=== PATIENT | female | born 2000 | race Caucasian/White ===

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

== ENCOUNTER 2019-03-14 22:58 | Inpatient (IN) | payer OTHER ==
--- OUTSIDE RECORDS SUMMARY | 2019-03-14 23:00 | XMS REPORT ---
:2000 [facility] Address [address] [place] [address] Care Team Providers Name Role Phone Unavailable Unavailable Unavailable Problems This patient has no known problems. Allergies, Adverse Reactions, Alerts This patient has no known allergies or adverse reactions. Medications This patient has no known medications.
--- OUTSIDE RECORDS SUMMARY | 2019-03-14 23:01 | XMS REPORT | Summary of Care ---
:2000 Author Organization [facility] Address [address] [place] [address] Care Team Providers Name Role Phone Shahnaz Guzman Primary Care Provider Og Cortes MD Insurance Hmo Unavailable Reason for Visit Reason Comments Care Encounter Details Date Type Department Care Team Description 03/12/2019 Routine [facility]- Shahnaz Guzman Supervision of high risk in third trimester (Primary Dx); Visit AURA Cruz History of spontaneous , currently ; [address] [place] [address] Limited care in third trimester; [place], [place] Teen parent; [address] [place], [place] Multiparity; [phone] [address] Chlamydia; [phone] Obesity in Allergies No Known Allergiesdocumented as of this encounter (statuses as of 03/12/2019) Medications Medication Sig Dispensed Refills Start Date End Date Status vit Take 1 Packet by 30 Each 6 09/05/2018 Active 79-nhmt-oyljh-dha mouth daily. (SELECT-OB + DHA) 29 mg iron-1 mg -250 mg combo packIndications: Supervision of high risk , antepartum dfuwzcpylvdos-nxis-rnc Take 1 capsule by 30 capsule 0 01/05/2019 Active albital (ESGIC) per mouth every 4 capsuleIndications: (four) hours as headache in needed for second trimester Headache. Iron, Cbn & Take 1 tablet by 60 tablet 3 01/08/2019 Active Zhjj-OM-I86-C-DSS mouth daily. (FERRALET 90 DUAL-IRON DELIVERY) 90-1-12-50 ly-cq-osb-mg per tabletIndications: Anemia of mother in , antepartum documented as of this encounter (statuses as of 03/12/2019) Active Problems Patient Care Coordination Note IOL 02-14-18 at 7am Problem Noted Date Supervision of high risk in third trimester 02/13/2019 Blunt trauma to abdomen, initial encounter 02/13/2019 Anemia of mother in , antepartum 01/08/2019 Limited care in second trimester 11/30/2018 Candidiasis of vulva and vagina 11/30/2018 Chlamydia 09/28/2018 Multiparity 08/25/2018 Teen parent 02/09/2018 History of spontaneous , currently 06/20/2017 Family history of Down syndrome 06/20/2017 Obesity in 06/20/2017 High risk , antepartum 02/18/2017 Estimated Date of Delivery Comments Yes 03/29/2019 Based on last menstrual period of 06/22/2018 (Within Days) documented as of this encounter (statuses as of 03/12/2019) Resolved Problems Problem Noted Date Resolved Date (spontaneous vaginal delivery) 02/09/2018 08/25/2018 Single live 02/09/2018 08/25/2018 Episiotomy obstetrical, second degree 02/09/2018 08/25/2018 PIH ( induced hypertension) w/o SF 02/09/2018 08/25/2018 38 weeks gestation of 02/08/2018 02/10/2018 Right flank pain 01/29/2018 02/10/2018 36 weeks gestation of 01/28/2018 02/10/2018 Premature uterine contractions causing threatened premature 01/28/20182017 labor in third trimester Diarrhea 01/28/2018 02/10/2018 Nausea & vomiting 01/28/2018 02/10/2018 Elevated blood pressure affecting , antepartum 01/23/2018 02/10/2018 Obesity (BMI 30-39.9) 01/12/2018 01/17/2018 Supervision of high risk in third trimester 12/14/2017 08/25/2018 Abnormal maternal glucose tolerance, antepartum 11/16/2017 08/25/2018 Overview: Passed 3hr Acute URI 11/15/2017 01/17/2018 Urinary frequency 11/15/2017 01/17/2018 Headache 10/30/2017 02/10/2018 23 weeks gestation of 10/29/2017 01/17/2018 Elevated blood pressure reading without diagnosis of 10/28/2017 01/17/2018 hypertension Encounter for supervision of high risk in second 08/25/20172017 trimester, antepartum Supervision of high risk , antepartum, first trimester 06/20/2017 High risk teen in first trimester 06/20/2017 08/25/2017 Missed menses 06/20/2017 01/17/2018 Nausea and vomiting during prior to 22 weeks 02/18/2017 06/20/2017 gestation Skin lesion 02/18/2017 06/20/2017 Well woman exam 11/26/2015 02/18/2017 Contraceptive management 11/26/2015 02/18/2017 Screen for STD (sexually transmitted disease) 11/26/2015 02/18/2017 Dysmenorrhea 11/26/2015 02/18/2017 documented as of this encounter (statuses as of 03/12/2019) Immunizations Name Administration Dates Next Due Tdap 01/05/2019, 12/14/2017, 08/08/2015 documented as of this encounter Social History Tobacco Use Types Packs/Day Years Used Date Never Smoker Smokeless Tobacco: Never Used Alcohol Use Drinks/Week oz/Week Comments No 0 Standard drinks or equivalent 0.0 Estimated Date of Delivery Comments Yes 03/29/2019 Based on last menstrual period of 06/22/2018 (Within Days) Sex Assigned at Date Recorded Not on file Job Start Date Occupation Industry Not on file Not on file Not on file Travel History Travel Start Travel End No recent travel history available. documented as of this encounter Last Filed Vital Signs Vital Sign Reading Time Taken Comments Blood Pressure 131/76 03/12/2019 10:00 AM CDT Pulse 99 03/12/2019 10:00 AM CDT Temperature 36.6 C (97.8 F) 03/12/2019 10:00 AM CDT Respiratory Rate 16 03/12/2019 10:00 AM CDT Oxygen Saturation - - Inhaled Oxygen Concentration - - Weight 87.1 kg (192 lb) 03/12/2019 10:00 AM CDT Height 167.6 cm (5' 6") 03/12/2019 10:00 AM CDT Body Mass Index 30.99 03/12/2019 10:00 AM CDT documented in this encounter Progress Notes Korina Guzmanvipinemerson Sun, UNDERGROUND FOREMAN - 03/12/2019 9:45 AM CDT Chief complaint: Chief Complaint Patient presents with Care HPI Histories OB History Para Term AB Living 3 1 1 0 1 1 SAB TAB Ectopic Multiple Live Births 1 0 0 0 1 # Outcome Date GA Lbr David/2nd Weight Sex Delivery Anes PTL Lv 3 Current 2 Term 02/09/18 38w2d 7 lb 1 oz (3.204 kg) F VAGINAL EPI N PARKER 1 SAB 03/2017 10w0d ND Past Medical History: Diagnosis Date Abnormal maternal glucose tolerance, antepartum 11/16/2017 with previous Anemia of mother in , antepartum 01/08/2019 Candidiasis of vulva and vagina 11/30/2018 Dysmenorrhea 11/26/2015 PIH ( induced hypertension) w/o SF 02/09/2018 with previous STD (sexually transmitted disease) resolved Family History Problem Relation Age of Onset Hypertension Mother Breast Cancer Maternal Grandmother Other - see comments Brother down syndrom Other - see comments Father No Significant Medical Problems Sister Arthritis NoFHx Asthma NoFHx defects NoFHx Colon Cancer NoFHx Ovarian Cancer NoFHx Uterine Cancer NoFHx Depression NoFHx Cancer NoFHx Diabetes NoFHx Genetic NoFHx Heart NoFHx High cholesterol NoFHx Mental retardation NoFHx Neurological NoFHx Osteoporosis NoFHx Psychiatry NoFHx Family Status Relation Name Status Mo Alive MGMo Bro Alive Fa Alive unknown Sis Alive MGFa Alive PGMo Alive PGFa NoFHx (Not Specified) No past surgical history on file. Social History Socioeconomic History Marital status: Single Spouse name: Not on file Number of children: Not on file Years of education: Not on file Highest education level: Not on file Occupational History Not on file Social Needs Financial resource strain: Not on file Food insecurity: Worry: Not on file Inability: Not on file Transportation needs: Medical: Not on file Non-medical: Not on file Tobacco Use Smoking status: Never Smoker Smokeless tobacco: Never Used Substance and Sexual Activity Alcohol use: No Alcohol/week: 0.0 oz Drug use: No Sexual activity: Yes Partners: Male control/protection: Pill Comment: last sexual intercourse 08/23/2018 Lifestyle Physical activity: Days per week: Not on file Minutes per session: Not on file Stress: Not on file Relationships Social connections: Talks on phone: Not on file Gets together: Not on file Attends judaism service: Not on file Active member of club or organization: Not on file Attends meetings of clubs or organizations: Not on file Relationship status: Not on file Intimate partner violence: Fear of current or ex partner: Not on file Emotionally abused: Not on file Physically abused: Not on file Forced sexual activity: Not on file Other Topics Concern Not on file Social History Narrative Patient lives with family. Patient has 1 cat and 3 dogs. Social History Substance and Sexual Activity Sexual Activity Yes Partners: Male control/protection: Pill Comment: last sexual intercourse 08/23/2018 Labs Labs are pending. Radiology No new radiology. Allergies Richar has No Known Allergies. Medications Richar has a current medication list which includes the following prescription(s) : iron, cbn & cfgg-ho-b66-c-dss, iijnkntdfbupy-aeyp-hdamsnvdky, and vit 51-kzgb-xwwff-dha. Review of Systems Eyes: Negative for visual disturbance. Cardiovascular: Negative for leg swelling. Gastrointestinal: Negative for abdominal pain, nausea and vomiting. Genitourinary: Negative for vaginal bleeding, vaginal discharge and pelvic pain. Neurological: Negative for headaches. BP 131/76 (BP Location: Right arm, Patient Position: Sitting, BP CUFF SIZE: Adult Small) | Pulse 99 | Temp 36.6 C (97.8 F) (Oral) | Resp 16 | Ht 5' 6 " (1.676 m) | Wt 192 lb (87.1 kg) | LMP 06/22/2018 (Within Days) | BMI 30.99 kg/m Pregravid BMI: 25.8 Physical Exam PHYSICAL: General Exam: Neurological: Normal Abdomen: Normal Extremities: Normal Pelvic Exam: Vagina: Mechanical Energy Engineer present for the exam: Radha Loco MA Cervix: 2/60/-3 Membrane status: Intact Uterus: 36cm Assessment/Plan Supervision of high risk in third trimester (primary encounter diagnosis) History of spontaneous , currently Limited care in third trimester Teen parent Multiparity Comment: Routine Visit Plan: CBC WITH DIFF, GC & CHLAMYDIA AMPLIFIED ASSAY, GROUP B STREPTOCOCCUS BY PCR, CBC WITH DIFFERENTIAL Denies zika virus risk, signs and symptoms such as fever,rash,joint pain, conjunctivitis (red eyes), muscle pain, headaches; outside [place] travel to areas affected by zika, and FOB exposure to zika.Educated on use of mosquito repellent. Chlamydia Comment: CT+--> Treat on 08/29/18, KETAN neg 11/30/18 Plan: per protocol repeat at 36wks. Obesity in Comment: See BMI Plan: Patient encouraged to limit weight gain and sensible diet. Return to clinic in 1 weeks. Discussed treatment options. Medications as ordered. Reviewed patient instructions and provided printed copy. This visit did not involve counseling and coordination that comprised more than 50% of the visit time. AURA Mai 03/12/2019 11:25 AM Jacquelin Bloom RN - 03/12/2019 9:45 AM CDTPatient AM has been scheduled for IOL on 03/22/2019 @ 39.0wks, 0730. documented in this encounter Plan of Treatment Date Type Specialty Care Team Description 03/19/2019 Routine Visit OB Satellites Shahnaz Guzman FNP [address] [place] [address] [phone] Name Type Priority Associated Diagnoses Date/Time CBC WITH DIFF LAB Routine Supervision of high risk 03/12/2019 10:29 AM in third CDT trimester GC & CHLAMYDIA AMPLIFIED LAB Routine Supervision of high risk 03/12/2019 10 :29 AM ASSAY in third CDT trimester GROUP B STREPTOCOCCUS BY LAB Routine Supervision of high risk 03/12/2019 10 :29 AM PCR in third CDT trimester CBC WITH DIFFERENTIAL LAB Routine Supervision of high risk 03/12/2019 10: 29 AM in third CDT trimester Health Maintenance Due Date Last Done Comments MENINGOCOCCAL B VACCINES (1 2009 of 2 - Risk Bexsero 2-dose series) HPV VACCINES (1 - Female 2014 3-dose series) INFLUENZA VACCINE 04/08/2019 06/20/2017 (Declined) CHLAMYDIA SCREENING 12/01/2019 11/30/2018, 08/25/2018, 01/30/2018, Additional history exists DTaP,Tdap,and Td Vaccines (4 01/05/2029 01/05/2019, 12/14/2017, - Td) 08/08/2015 MENINGOCOCCAL VACCINE Aged Out No longer eligible based on patient's age to complete this topic PNEUMOCOCCAL 0-64 YEARS Aged Out No longer eligible COMBINED SERIES based on patient's age to complete this topic documented as of this encounter Procedures Procedure Name Priority Date/Time Associated Comments Diagnosis POCT URINALYSIS W/O Routine 03/12/2019 10:02 AM Results for this SPECIFIC GRAVITY CDT procedure are in the results section. documented in this encounter Results POCT URINALYSIS W/O SPECIFIC GRAVITY (03/12/2019 10:02 AM CDT) POCT PH U . 5 - 8 mg/dl POCT U LEUK EST . Negative - Negative POCT U NIT . Negative - Negative POCT U PROT trace Negative - Negative POCT U GLU neg Negative - Negative POCT U KETONE . Negative - Negative POCT U BLD . Negative - Negative Specimen Urine - URINE, CLEAN CATCH documented in this encounter Visit Diagnoses Diagnosis Supervision of high risk in third trimester - Primary Unspecified high-risk History of spontaneous , currently Limited care in third trimester Teen parent Other specified family circumstances Multiparity Chlamydia Other specified chlamydial infection, in conditions classified elsewhere and of unspecified site Obesity in Obesity complicating , childbirth, or the puerperium, unspecified as to episode of care or not applicable documented in this encounter Insurance Payer Benefit Plan / Subscriber ID Effective Phone Address Type Group [facility] xxxxxxxxx 2018-Prese [address] Medicaid HEALTH CHOICE - HEALTH [place] nt [id number] MANAGED MEDICAID [place], [place]ICA[place] [phone] documented as of this encounter Advance Directives Name Relationship Healthcare Agent Relationship Communication Guillermina Finley Mother Primary healthcare agent
--- OUTSIDE RECORDS SUMMARY | 2019-03-14 23:01 | XMS REPORT | Summary of Care ---
:1999 Author Organization [facility] Address [address] [place] [address] Care Team Providers Name Role Phone Shahnaz Guzman Primary Care Provider Og Cortes MD Insurance Hmo Unavailable Reason for Visit Reason Comments Talk To Nurse Encounter Details Date Type Department Care Team Description 03/01/2019 Telephone [facility]- Shahnaz Guzman FNP Talk To Nurse [place] [address] [facility] [address] [place] [address] [place] [address] Allergies No Known Allergiesdocumented as of this encounter (statuses as of 03/01/2019) Medications Medication Sig Dispensed Refills Start Date End Date Status vit Take 1 Packet by 30 Each 6 09/05/2018 Active 16-alhl-qpzgh-dha mouth daily. (SELECT-OB + DHA) 29 mg iron-1 mg -250 mg combo packIndications: Supervision of high risk , antepartum wwqibhzpfxiay-bekx-msy Take 1 capsule by 30 capsule 0 01/05/2019 Active albital (ESGIC) per mouth every 4 capsuleIndications: (four) hours as headache in needed for second trimester Headache. Iron, Cbn & Take 1 tablet by 60 tablet 3 01/08/2019 Active Hgaz-EP-M12-C-DSS mouth daily. (FERRALET 90 DUAL-IRON DELIVERY) 90-1-12-50 yn-dl-gsm-mg per tabletIndications: Anemia of mother in , antepartum documented as of this encounter (statuses as of 03/01/2019) Active Problems Patient Care Coordination Note IOL [...] as of this encounter (statuses as of 03/01/2019) Resolved Problems Problem Noted Date Resolved Date [...] as of this encounter (statuses as of 03/01/2019) Immunizations Name Administration Dates Next Due Tdap [...] of this encounter Last Filed Vital Signs Not on filedocumented in this encounter Plan of Treatment Date Type Specialty Care Team Description 03/08/2019 Routine Visit OB Satellites Shahnaz Guzman, SEO MANAGER [address] [place] [address] [phone] Health Maintenance Due Date Last Done Comments [...] this topic documented as of this encounter Results Not on filedocumented in this encounter Insurance Payer Benefit Plan / Subscriber ID Effective Phone Address Type Group [facility] xxxxxxxxx 2018-Maxi BROWN Medicaid HEALTH CHOICE - HEALTH CHOICE nt [id number] [facility] MEDICAID [place], [place] [phone] documented as of this encounter Advance Directives Name Relationship Healthcare Agent Relationship Communication Guillermina Finley Mother Primary healthcare agent
--- OUTSIDE RECORDS SUMMARY | 2019-03-14 23:01 | XMS REPORT | Summary of Care ---
:1999 Author Organization [facility] Address [address] [place] [address] Care Team Providers Name Role Phone Shahnaz Guzman [employer] Primary Care Provider Og Cortes MD Insurance Hmo Unavailable Reason for Visit Reason Comments Numbness SWELLING Decreased Movement Encounter Details Date Type Department Care Team Description 03/10/2019 Nurse Triage [facility] Ladonna Raya RN Numbness; SWELLING; [address] [place] [address] [address] [place] [phone] Allergies No Known Allergiesdocumented as of this encounter (statuses as of 03/10/2019) Medications Medication Sig Dispensed Refills Start Date End Date Status vit Take 1 Packet by 30 Each 6 09/05/2018 Active 35-nfze-ojtcn-dha mouth daily. (SELECT-OB + DHA) 29 mg iron-1 mg -250 mg combo packIndications: Supervision of high risk , antepartum qtqdejufzypui-rlzh-uhv Take 1 capsule by 30 capsule 0 01/05/2019 Active albital (ESGIC) per mouth every 4 capsuleIndications: (four) hours as headache in needed for second trimester Headache. Iron, Cbn & Take 1 tablet by 60 tablet 3 01/08/2019 Active Ipyr-UW-H83-C-DSS mouth daily. (FERRALET 90 DUAL-IRON DELIVERY) 90-1-12-50 za-mt-nau-mg per tabletIndications: Anemia of mother in , antepartum documented as of this encounter (statuses as of 03/10/2019) Active Problems Patient Care Coordination Note IOL [...] as of this encounter (statuses as of 03/10/2019) Resolved Problems Problem Noted Date Resolved Date [...] as of this encounter (statuses as of 03/10/2019) Immunizations Name Administration Dates Next Due Tdap [...] Treatment Date Type Specialty Care Team Description 03/12/2019 Routine Visit OB Satellites Shahnaz Guzman, [employer] [address] [place] [address] [phone] Health Maintenance Due Date Last Done Comments [...] Subscriber ID Effective Phone Address Type Group [facility] xxxxxxxxx 2018-Maxi PRyan BROWN Medicaid HEALTH CHOICE - HEALTH [place] [id number] MANAGED MEDICAID [place] [phone] documented as of this encounter Advance Directives Name Relationship Healthcare Agent Relationship Communication Guillermina Finley Mother Primary healthcare agent
--- OUTSIDE RECORDS SUMMARY | 2019-03-14 23:01 | XMS REPORT | Summary of Care ---
:1999 Author Organization [facility] Address [address] [place] [address] Care Team Providers Name Role Phone Shahnaz GuzmanP Primary Care Provider Og Cortes MD Insurance Hmo Unavailable Reason for Visit Reason Comments DNKA Encounter Details Date Type Department Care Team Description [facility] [place] [facility], [facility] DNKA [address] [facility] [address] [place] [address] [place] [address] [phone] Allergies No Known Allergiesdocumented as of this encounter (statuses as of 03/01/2019) Medications Medication Sig Dispensed Refills Start Date End Date Status vit Take 1 Packet by 30 Each 6 09/05/2018 Active 06-wrpg-jyrsq-dha mouth daily. (SELECT-OB + DHA) 29 mg iron-1 mg -250 mg combo packIndications: Supervision of high risk , antepartum teknsvhmxbkyz-bebm-lox Take 1 capsule by 30 capsule 0 01/05/2019 Active albital (ESGIC) per mouth every 4 capsuleIndications: (four) hours as headache in needed for second trimester Headache. Iron, Cbn & Take 1 tablet by 60 tablet 3 01/08/2019 Active Sfuf-GE-E25-C-DSS mouth daily. (FERRALET 90 DUAL-IRON DELIVERY) 90-1-12-50 gi-ig-krz-mg per tabletIndications: Anemia of mother in , [...] 03/08/2019 Routine Visit OB Satellites Shahnaz Guzman, EXECUTIVE KITCHEN MANAGER [address] [place] [address] [phone] Health Maintenance Due Date Last Done Comments [...] Subscriber ID Effective Phone Address Type Group [facility] xxxxxxxxx 2018-Maxi PRyan BROWN Medicaid HEALTH CHOICE - HEALTH CHOICE [id number] MANAGED MEDICAID [place] [phone] documented as of this encounter Advance Directives Name Relationship Healthcare Agent Relationship Communication Guillermina Malia Mother Primary healthcare agent
[2019-03-14] MEDS ORDERED: METHYLERGONOVINE 0.2MG/ML AMP IM PRN (23:30)
[2019-03-14] MEDS ORDERED: BUTORPHANOL 1 MG/ML INJ IV PRN (23:30)
[2019-03-14] MEDS ORDERED: CARBOPROST TROME 250 MCG/ML IM PRN (23:30)
[2019-03-14] MEDS ORDERED: PROMETHAZINE 25 MG/ML VIAL IM PRN (23:30)
[2019-03-14] MEDS ORDERED: Ringers Lactate 1,000 ML IV PRN (23:30)
[2019-03-14] MEDS ORDERED: BUTORPHANOL 1 MG/ML INJ IV ONE (23:38)
[2019-03-14] MEDS ORDERED: OXYTOCIN/LR 20 UNIT/1,000 ML BAG IV SCH (23:45)
[2019-03-14] MEDS ORDERED: Ringers Lactate 1,000 ML IV SCH (23:45)
[2019-03-14 23:51] LABS: Absolute Lymphocytes (CBC) 3.3 K/uL (0.7-4.9); Basophils % 0.5 % (0-1.3); Hematocrit 29.6 % (36.0-45.0); Lymphocytes % 27.8 % (15.3-44.8); MPV 8.9 fL (7.6-11.3); RBC Red Blood Cell Count 4.02 M/uL (3.86-4.86)
[2019-03-15] MEDS ORDERED: Oxycodone HCl/Acetaminophen 1 TAB TAB PO PRN ×2 (00:26)
[2019-03-15] MEDS ORDERED: DOCUSATE NA/SENNA CONC 1 TAB PO PRN (00:26)
[2019-03-15] MEDS ORDERED: BISACODYL 10 MG RECTAL SUPP RECT PRN (00:26)
[2019-03-15] MEDS ORDERED: DIPHENHYDRAMINE 25 MG TAB/CAP PO PRN (00:26)
[2019-03-15] MEDS ORDERED: ACETAMINOPHEN 500 MG TAB PO PRN (00:26)
[2019-03-15] MEDS ORDERED: OXYTOCIN/LR 20 UNIT/1,000 ML BAG IV SCH (01:00)
[2019-03-15] MEDS: IBUPROFEN 200 MG TAB PO PRN ×2 (02:35→12:30)
[2019-03-15 03:53] VITALS: BMI 30.2
--- NOTE | 2019-03-15 05:11 | DN ---
Surgeon: Demarcus Rivas MD A 18-year-old 3, para 1, at 39+ weeks gestation admitted 4 cm, grossly ruptured membranes. C ontracting every 3-6 minutes. Nurses said she was uncooperative. Vital signs all normal. Baby looke d good on the monitor. Very rapidly patient went to complete. Second stage 15 minutes or less. Spo ntaneous vaginal delivery of an estimated 6 to 6.5 pounds male , Apgars 9 and 9. No episiotomy . No lacerations worthy of suturing. Schultze delivery of the placenta. Estimated blood loss 350-4 00 mL. Patient lost her IV and a new one is being started now 0.2 mg of Methergine ordered as we do not have an IV. All lab still pending. The patient never got penicillin as she went so rapidly. Shailesh casanova knows baby will have to stay probably an extra 24 hours because of that. Baby doing quite well. Final Diagnoses: Term intrauterine 39+ weeks. [facility] drop-in, vaginal delivery. Labs pendi ng. Physical exam normal. NBC/MODL Voice ID: [id number] Report ID: [id number]
--- NOTE | 2019-03-15 05:11 | PREOPHP ---
Date of Admission: 03/14/2019 A 18-year-old 3, para 1, 39 weeks plus. Apparently followed by [facility] without complications ac cording to the patient. Dropped in at our institution, 4 cm grossly ruptured membranes. Karmen 3 to 6 minutes. She was beta strep positive. Penicillin was ordered as she said she had no penicil sánchez allergy. Admitted for stabilization and delivery. Records pending from the [facility] at that time. PALAK/DENILSON Voice ID: [id number]
[2019-03-15 22:16] LABS: RPR (Rapid Plasma Reagin) NON-REACT (NON-REACT)
[2019-03-16] MEDS: IBUPROFEN 200 MG TAB PO PRN (01:20)
[2019-03-16 05:58] VITALS: BP 117/84; TEMP 97.1
[2019-03-16] MEDS ORDERED: MORPHINE SULFATE/PF 1 MG/ML (10 ML AMP) ONE (07:29)
[2019-03-16] MEDS ORDERED: EPHEDRINE SULF 50 MG/ML VIAL ONE (07:29)
--- NOTE | 2019-03-16 08:02 | DS ---
Date of Discharge: 03/16/2019 This 18-year-old 3, para 1, AB1 at 39+ weeks' gestation according to patient followed by [facility] without apparent complications. Admitted to our hospital in active rapidly advancing labor with rup ture of membranes, 4 cm, 100% effaced, 0 station. Karmen every 3-6 minutes on admission. Patien t was strep positive but before the IV medications, penicillin could be given patient was complete an d on the perineum. Delivered a 6-pound, 11 ounce male infant, Apgars 9 and 9. No episiotomy. No la ceration. Schultze delivery of the placenta, which was inspected and noted be intact and normal. 350 to 400 cc blood loss, 0.2 mg of Methergine given as patient lost her IV right before the delivery. was afebrile, ambulating and voiding. Lochia is normal. She is Rh positive. Rubella sta tus is unknown. We will try to see what she is before she leaves and administer rubella immunization as necessary. She has had her Tdap immunization. Full dismissal instructions given. She is to con tact the [facility] for further instructions. Final Diagnoses: Term intrauterine 39 plus weeks. Vaginal delivery. PALAK/DENILSON Voice ID: [id number] Report ID: [id number]
[2019-03-16] MEDS ORDERED: MIDAZOLAM HCL 2 MG/2 ML INJ ONE (08:17)
[2019-03-20 03:11] LABS: HBsAG Nonreactive (Nonreactive)
== END 2019-03-16 07:09 | disposition home or self-care (01) | DRG 807 ==
LOC: L&D 22:58 → 2ND-WC 23:09
PROVIDERS: ADMIT Specialist; ATTEND Specialist
PROC: 10E0XZZ Delivery of Products of Conception, External Approach (ICD-10-PCS; principal; 2019-03-15)
DX: O99.824 Streptococcus B carrier state complicating childbirth (principal); Z37.0 Single live birth; Z3A.39 39 weeks gestation of pregnancy
CPT/HCPCS: 36415; 85025; 86592; 86901; 87340; G0433; J0595; J2210; J2250; J2590

== ENCOUNTER 2019-10-27 17:30 | Emergency (ER) | payer OTHER, SELFPAY ==
--- OUTSIDE RECORDS SUMMARY | 2019-10-27 17:32 | XMS REPORT ---
:1999 [facility] Address [address] [place] [address] Care Team Providers Name Role Phone Unavailable Unavailable Unavailable Problems This patient has no known problems. Allergies, Adverse Reactions, Alerts This patient has no known allergies or adverse reactions. Medications This patient has no known medications.
--- OUTSIDE RECORDS SUMMARY | 2019-10-27 17:33 | XMS REPORT | Summary of Care ---
:2000 Author Organization [facility] Address [address] [place] [id number] Care Team Providers Name Role Phone Shahnaz Guzman DISPATCH SUPERVISOR Primary Care Provider Og Cortes MD Insurance Hmo Unavailable Reason for Visit Reason Comments Assessment Encounter Details Date Type Department Care Team Description 08/23/2019 Telephone [facility] [place] Shahnaz Guzman FNP Assessment [address] [facility] [address] [place] [address] [place] [address] [phone] Allergies No Known Allergiesdocumented as of this encounter (statuses as of 08/23/2019) Medications Medication Sig Dispensed Refills Start Date End Date Status vit Take 1 Packet by 30 Each 6 09/05/2018 Active 87-sipx-bwaar-dha mouth daily. (SELECT-OB + DHA) 29 mg iron-1 mg -250 mg combo packIndications: Supervision of high risk , antepartum vpertsvptxzzg-ntua-ojg Take 1 capsule by 30 capsule 0 01/05/2019 Active albital (ESGIC) per mouth every 4 capsuleIndications: (four) hours as headache in needed for second trimester Headache. Iron, Cbn & Take 1 tablet by 60 tablet 3 01/08/2019 Active Ihni-BJ-X68-C-DSS mouth daily. (FERRALET 90 DUAL-IRON DELIVERY) 90-1-12-50 gv-sb-bdn-mg per tabletIndications: Anemia of mother in , antepartum documented as of this encounter (statuses as of 08/23/2019) Active Problems Patient Care Coordination Note IOL 7--18 at 7am Problem Noted Date GBS (group B Streptococcus carrier), +RV culture, currently 2018 Overview: Address in labor and Delivery Supervision of high risk in third trimester 02/13/2019 Blunt trauma to abdomen, initial encounter 02/13/2019 Anemia of mother in , antepartum 01/08/2019 Limited care in second trimester 11/30/2018 Candidiasis of vulva and vagina 11/30/2018 Chlamydia 09/28/2018 Multiparity 08/25/2018 Teen parent 02/09/2018 History of spontaneous , currently 06/20/2017 Family history of Down syndrome 06/20/2017 Obesity in 06/20/2017 High risk , antepartum 02/18/2017 documented as of this encounter (statuses as of 08/23/2019) Resolved Problems Problem Noted Date Resolved Date [...] as of this encounter (statuses as of 08/23/2019) Immunizations Name Administration Dates Next Due Tdap 01/05/2019, 12/14/2017, 08/08/2015 documented as of this encounter Social History Tobacco Use Types Packs/Day Years Used Date Never Smoker Smokeless Tobacco: Never Used Alcohol Use Drinks/Week oz/Week Comments No 0 Standard drinks or equivalent 0.0 Sex Assigned at Date Recorded Not on file Job Start Date Occupation Industry Not on file Not on file Not on file Travel History Travel Start Travel End No recent travel history available. documented as of this encounter Last Filed Vital Signs Not on filedocumented in this encounter Plan of Treatment Health Maintenance Due Date Last Done Comments MENINGOCOCCAL B VACCINES (1 2009 of 2 - Risk Bexsero 2-dose series) HPV VACCINES (1 - Female 2010 2-dose series) INFLUENZA VACCINE (#1) 2019 CHLAMYDIA SCREENING 03/12/2020 03/12/2019, 11/30/2018, 08/25/2018, Additional history exists DTaP,Tdap,and Td Vaccines (4 [...] Subscriber ID Effective Phone Address Type Group Dates [facility] xxxxxxxxx 2018-Maxi BROWN Medicaid HEALTH CHOICE - HEALTH CHOICE nt [id number] MANAGED MEDICAID [place], [place] MEDICAID [phone] documented as of this encounter Advance Directives Name Relationship Healthcare Agent Relationship Communication Guillermina Finley Mother Primary healthcare agent
--- OUTSIDE RECORDS SUMMARY | 2019-10-27 17:33 | XMS REPORT | Summary of Care ---
:2000 Author Organization [facility] Address [address] [place] [address] Care Team Providers Name Role Phone Shahnaz Guzman Corinne CHAVARRIA Primary Care Provider Og Cortes MD Insurance Hmo Unavailable Encounter Details Date Type Department Care Team Description 03/15/2019 Orders Only [facility] Doctor Unassigned, No [address] [facility] Name [place] [id number] [address] [place] [id number] Allergies No Known Allergiesdocumented as of this encounter (statuses as of 03/23/2019) Medications Medication Sig Dispensed Refills Start Date End Date Status vit Take 1 Packet by 30 Each 6 09/05/2018 Active 64-vpyk-qxfjq-dha mouth daily. (SELECT-OB + DHA) 29 mg iron-1 mg -250 mg combo packIndications: Supervision of high risk , antepartum tfrvdlsuqrkxn-jvwd-yoj Take 1 capsule by 30 capsule 0 01/05/2019 Active albital (ESGIC) per mouth every 4 capsuleIndications: (four) hours as headache in needed for second trimester Headache. Iron, Cbn & Take 1 tablet by 60 tablet 3 01/08/2019 Active Xusm-ON-G47-C-DSS mouth daily. (FERRALET 90 DUAL-IRON DELIVERY) 90-1-12-50 xd-ii-epk-mg per tabletIndications: Anemia of mother in , antepartum documented as of this encounter (statuses as of 03/23/2019) Active Problems Patient Care Coordination Note IOL 7-10-18 at 7am Problem Noted Date GBS (group [...] as of this encounter (statuses as of 03/23/2019) Resolved Problems Problem Noted Date Resolved Date [...] as of this encounter (statuses as of 03/23/2019) Immunizations Name Administration Dates Next Due Tdap [...] Treatment Date Type Specialty Care Team Description 04/05/2019 Routine Visit OB Satellites Shahnaz Guzman, SENIOR INFORMATION SECURITY CONSULTANT [address] [place] [address] [phone] Health Maintenance Due Date Last Done Comments MENINGOCOCCAL B VACCINES (1 2009 of 2 - Risk Bexsero 2-dose series) HPV VACCINES (1 - Female 2014 3-dose series) INFLUENZA VACCINE (#1) 2019 CHLAMYDIA SCREENING [...] encounter Procedures Procedure Name Priority Date/Time Associated Diagnosis Comments AUTHORIZATION FOR RELEASE Routine 03/15/2019 12:01 AM OF PHI CDT documented in this encounter Results Not on filedocumented in this encounter Insurance Payer Benefit Plan / Subscriber ID Effective Phone Address Type Group [facility] xxxxxxxxx 2018-Prese [address] Medicaid HEALTH CHOICE - HEALTH CHOICE nt [id number] MANAGED MEDICAID [place], [place] [phone] documented as of this encounter Advance Directives Name Relationship Healthcare Agent Relationship Communication Guillermina Finley Mother Primary healthcare agent
--- OUTSIDE RECORDS SUMMARY | 2019-10-27 17:33 | XMS REPORT | Summary of Care ---
:[address] [facility] Address [address] [place] [address] Care Team Providers Name Role Phone Shahnaz GuzmanP Primary Care Provider Og Cortes MD Insurance Hmo Unavailable Reason for Visit Reason Comments DNKA Encounter Details Date Type Department Care Team Description 04/13/2019 Telephone [facility] [place] Shahnaz Guzman, [facility] DNKA [address] [facility] [address] [place] [address] [place] [address] [phone] Allergies No Known Allergiesdocumented as of this encounter (statuses as of 04/16/2019) Medications Medication Sig Dispensed Refills Start Date End Date Status vit Take 1 Packet by 30 Each 6 09/05/2018 Active 92-pbwd-yancw-dha mouth daily. (SELECT-OB + DHA) 29 mg iron-1 mg -250 mg combo packIndications: Supervision of high risk , antepartum tberymalsvudt-evmq-gyo Take 1 capsule by 30 capsule 0 01/05/2019 Active albital (ESGIC) per mouth every 4 capsuleIndications: (four) hours as headache in needed for second trimester Headache. Iron, Cbn & Take 1 tablet by 60 tablet 3 01/08/2019 Active Hkbs-LA-Z48-C-DSS mouth daily. (FERRALET 90 DUAL-IRON DELIVERY) 90-1-12-50 gk-ke-yjm-mg per tabletIndications: Anemia of mother in , antepartum documented as of this encounter (statuses as of 04/16/2019) Active Problems Patient Care Coordination Note IOL 02-14-18 at 7am Problem Noted Date GBS (group [...] as of this encounter (statuses as of 04/16/2019) Resolved Problems Problem Noted Date Resolved Date [...] as of this encounter (statuses as of 04/16/2019) Immunizations Name Administration Dates Next Due Tdap [...] Treatment Date Type Specialty Care Team Description 04/18/2019 Routine Visit OB Satellites Shahnaz Guzman, WATER QUALITY ANALYST [address] [place], [place] [id number] Health Maintenance Due Date Last Done Comments [...] Subscriber ID Effective Phone Address Type Group [facility] xxxxxxxxx 2018-Maxi P.Stanley BROWN Medicaid HEALTH CHOICE - HEALTH CHOICE nt [id number] MANAGED MEDICAID [place], [place] MED[place] [phone] documented as of this encounter Advance Directives Name Relationship Healthcare Agent Relationship Communication Guillermina Finley Mother Primary healthcare agent
[2019-10-27 18:18] LABS: Basophils % 0.8 % (0-1.3); Hematocrit 34.4 % (36.0-45.0); Lymphocytes % 27.1 % (15.3-44.8); RBC Red Blood Cell Count 4.52 M/uL (3.86-4.86)
[2019-10-27 18:20] LABS: Urine Bacteria <20 /HPF (<20); Urine Mucus 1+ /HPF (NONE SEEN); Urine RBC <5 /HPF (NONE SEEN)
[2019-10-27 18:33] LABS: BUN Blood Urea Nitrogen 9 mg/dL (7-18); Bicarbonate 23 mmol/L (21-32); Glucose Level 95 mg/dL (74-106); Potassium 3.6 mmol/L (3.5-5.1); Sodium Level 139 mmol/L (136-145)
--- NOTE | 2019-10-27 18:51 | ER ---
Nurse's Notes [facility] Name: Richar Tariq Age: 19 yrs Sex: Female : 2000 Arrival Date: 10/27/2019 Time: 17:30 Bed 5 Private MD: Diagnosis: Threatened Presentation: 10/26 17:32 Chief complaint: Patient states: Vaginal bleeding and abdominal cramping for 3 days. ca1 Bleeding stopped but cramping continuued. LMP was 2018, UPT done in August 2019. Has not seen a OB yet because of insurance. Pt states, "I just want to know how far along I am". Denies fever, cough and congestion. Coronavirus screen: Patient denies fever greater than 100.4F, cough, shortness of breath, or difficulty breathing. Proceed with normal triage process. Ebola Screen: Patient negative for fever greater than or equal to 101.5 degrees Fahrenheit, and additional compatible Ebola Virus Disease symptoms Patient denies exposure to infectious person. Patient denies travel to an Ebola-affected area in the 21 days before illness onset. No symptoms or risks identified at this time. Initial Sepsis Screen: Does the patient meet any 2 criteria? No. Patient's initial sepsis screen is negative. Does the patient have a suspected source of infection? No. Patient's initial sepsis screen is negative. Risk Assessment: Do you want to hurt yourself or someone else? Patient reports no desire to harm self or others. Onset of symptoms was October 27, 2019. 17:32 Method Of Arrival: Ambulatory ca1 17:32 Acuity: KYRIE 3 ca1 Triage Assessment: 17:40 General: Appears in no apparent distress. comfortable, Behavior is cooperative, bp appropriate for age. Pain: Denies pain. EENT: No deficits noted. Neuro: No deficits noted. Cardiovascular: No deficits noted. Respiratory: No deficits noted. GI: No signs and/or symptoms were reported involving the gastrointestinal system. : Reports vaginal bleeding that is. Derm: No deficits noted. Musculoskeletal: No deficits noted. PAID SEARCH ANALYST: 17:32 4, Full Term 1, Premature 1, 1, Living 2, LMP 07/24/2019 ca1 17:46 4, Full Term 2, 1, Living 2 pm1 Historical: - Allergies: 17:39 No Known Allergies; ca1 - Home Meds: 17:39 None [Active]; ca1 - PMHx: 17:39 Ovarian cyst; ca1 - PSHx: 17:39 None; ca1 - Immunization history:: Adult Immunizations up to date, Flu vaccine is up to date. - Social history:: Smoking status: Patient denies any tobacco usage or history of. Screenin:40 Abuse screen: Denies threats or abuse. Denies injuries from another. Nutritional bp screening: No deficits noted. Tuberculosis screening: No symptoms or risk factors identified. Fall Risk None identified. Assessment: 17:40 Obstetrical Assessment: General assessment: awake and alert, skin warm and dry, bp respirations even and unlabored. General: SEE TRIAGE NOTE. 18:27 Reassessment: U/S AT B/S. ALL CURRENT ORDERS IN PROCESS. bp 18:56 Reassessment: PT D/C HOME AMBULATORY, DX WITH THREATENED MISCARRIAGE. bp Vital Signs: 17:32 BP 118 / 70; Pulse 83; Resp 16 S; Temp 98.2(O); Pulse Ox 98% on R/A; Weight 74.84 kg ca1 (R); Height 5 ft. 6 in. (167.64 cm) (R); Pain 5/10; 18:26 BP 116 / 62; Pulse 76; Resp 16; Pulse Ox 100% ; bp 17:32 Body Mass Index 26.63 (74.84 kg, 167.64 cm) ca1 ED Course: 17:30 Patient arrived in ED. ag5 17:32 Arm band placed on right wrist. ca1 17:38 Triage completed. ca1 17:40 Patient has correct armband on for positive identification. Bed in low position. Call bp light in reach. Side rails up X2. 17:41 John Burrell, VIRI is Primary Nurse. bp 17:42 Antony Reyes NP is PHCP. pm1 17:42 Guillermo Davis MD is Attending Physician. pm1 17:50 Urine collected: clean catch specimen, cloudy, jaiden colored. jb1 17:55 Inserted saline lock: 20 gauge in right antecubital area, using aseptic technique. bp Blood collected. 18:41 Ultrasound completed. Patient tolerated well. sg3 18:48 Matter Eval Tm 1 In Process Unspecified. EDMS 18:56 No provider procedures requiring assistance completed. IV discontinued, intact, bp bleeding controlled, No redness/swelling at site. Pressure dressing applied. Administered Medications: No medications were administered Outcome: 18:51 Discharge ordered by MD. pm1 18:56 Discharged to home ambulatory. bp 18:56 Condition: stable 18:56 Discharge instructions given to patient, Instructed on discharge instructions, follow up and referral plans. Demonstrated understanding of instructions, follow-up care. 18:58 Patient left the ED. bp Signatures: Dispatcher [employer] EDNader Marques jb1 Antony Reyes NP AIR DRIER MACHINE OPERATOR pm1 John Burrell, VIRI RN bp Nivia Do sg3 Noemi Steward RN RN ca1 [place], Edita ag5 Corrections: (The following items were deleted from the chart) 17:39 17:32 Pulse 83bpm; Resp 16bpm; Spontaneous; Pulse Ox 98% RA; Temp 98.2F Oral; 74.84 kg ca1 Reported; Height 5 ft. 6 in. Reported; BMI: 26.6; Pain 5/10; ca1 18:47 18:42 In radiology for Transvaginal Ob+US.MAXIMINO. ALEXUS EDMS
--- NOTE | 2019-10-27 18:51 | EDPHYS ---
Physician Documentation [facility] Name: Richar Tariq Age: 19 yrs Sex: Female : 2000 Arrival Date: 10/27/2019 Time: 17:30 Bed 5 Private MD: ED Physician Guillermo Davis HPI: 10/26 17:46 This 19 yrs old Female presents to ER via Ambulatory with complaints of pm1 Vaginal Bleeding, + Preg <12wks. 17:46 The patient presents to the emergency department with vaginal bleeding, reports using 2 pm1 pads or tampons per day, Resolved yesterday. course: care: none, Ultrasound: the patient has not had an ultrasound. Associated signs and symptoms: Pertinent positives: Suprapubic cramping and bilateral flank pain, Pertinent negatives: chest pain, diarrhea, dysuria, fever, nausea, vomiting. The patient has not recently seen a physician. LODE MINER BLASTING: 17:32 4, Full Term 1, Premature 1, 1, Living 2, LMP 07/24/2019 ca1 17:46 4, Full Term 2, 1, Living 2 pm1 Historical: - Allergies: 17:39 No Known Allergies; ca1 - Home Meds: 17:39 None [Active]; ca1 - PMHx: 17:39 Ovarian cyst; ca1 - PSHx: 17:39 None; ca1 - Immunization history:: Adult Immunizations up to date, Flu vaccine is up to date. - Social history:: Smoking status: Patient denies any tobacco usage or history of. ROS: 17:46 Constitutional: Negative for fever, chills, and weight loss, Cardiovascular: Negative pm1 for chest pain, palpitations, and edema, Respiratory: Negative for shortness of breath, cough, wheezing, and pleuritic chest pain. 17:46 MS/Extremity: Negative for injury and deformity, Skin: Negative for injury, rash, and discoloration. 17:46 Neuro: Negative for headache, weakness, numbness, tingling, and seizure. 17:46 Abdomen/GI: Positive for abdominal pain, of the suprapubic area, Negative for nausea, vomiting, and diarrhea, constipation. 17:46 Back: Positive for flank pain, bilaterally. 17:46 : Positive for vaginal bleeding, Negative for urinary symptoms. Exam: 17:46 Constitutional: This is a well developed, well nourished patient who is awake, alert, pm1 and in no acute distress. Head/Face: Normocephalic, atraumatic. Chest/axilla: Normal chest wall appearance and motion. Nontender with no deformity. No lesions are appreciated. Cardiovascular: Regular rate and rhythm with a normal S1 and S2. No gallops, murmurs, or rubs. Normal PMI, no JVD. No pulse deficits. Respiratory: Lungs have equal breath sounds bilaterally, clear to auscultation and percussion. No rales, rhonchi or wheezes noted. No increased work of breathing, no retractions or nasal flaring. 17:46 Back: No spinal tenderness. No costovertebral tenderness. Full range of motion. Skin: Warm, dry with normal turgor. Normal color with no rashes, no lesions, and no evidence of cellulitis. MS/ Extremity: Pulses equal, no cyanosis. Neurovascular intact. Full, normal range of motion. 17:46 Abdomen/GI: Inspection: obese Bowel sounds: normal, Palpation: soft, in all quadrants, mild abdominal tenderness, in the suprapubic area, mass, is not appreciated, rebound tenderness, is not appreciated. 17:46 Neuro: Orientation: is normal, Motor: is normal, moves all fours. Vital Signs: 17:32 BP 118 / 70; Pulse 83; Resp 16 S; Temp 98.2(O); Pulse Ox 98% on R/A; Weight 74.84 kg ca1 (R); Height 5 ft. 6 in. (167.64 cm) (R); Pain 5/10; 18:26 BP 116 / 62; Pulse 76; Resp 16; Pulse Ox 100% ; bp 17:32 Body Mass Index 26.63 (74.84 kg, 167.64 cm) ca1 MDM: 17:42 Patient medically screened. pm1 17:49 Data reviewed: vital signs. Data interpreted: Pulse oximetry: on room air is 98 %. pm1 Interpretation: normal. 18:50 Counseling: I had a detailed discussion with the patient and/or guardian regarding: the pm1 historical points, exam findings, and any diagnostic results supporting the discharge/admit diagnosis, lab results, radiology results, the need for outpatient follow up, an OB/Gyne specialist, to return to the emergency department if symptoms worsen or persist or if there are any questions or concerns that arise at home. 19:31 Physician consultation: Dionisio Plata MD regarding patient's condition, Ultrasound pm1 report, Repeat U/S in 2-3 days due to blood present between placenta and uterine wall. Differentials include contraction of uterus, placental rupture, or fibroid. 19:38 ED course: Informed the patient of discussion with Dr. Plata, his U/S pm1 interpretation, and recommendation that she get repeat U/S in 2-3 days. 10/26 17:46 Order name: Quantitative Hcg; Complete Time: 19:27 pm1 10/26 17:46 Order name: Abo/rh Typing; Complete Time: 18:40 pm1 10/26 17:46 Order name: Basic Metabolic Panel; Complete Time: 19:27 pm1 10/26 17:46 Order name: CBC with Diff; Complete Time: 18:37 pm1 10/26 17:46 Order name: Urine Microscopic Only; Complete Time: 18:37 pm1 10/26 17:58 Order name: Urine Dipstick--Ancillary (enter results) ms 10/26 17:46 Order name: Urine Test (obtain specimen); Complete Time: 17:59 pm1 10/26 17:46 Order name: IV Saline Lock; Complete Time: 17:59 pm1 10/26 17:46 Order name: Labs collected and sent; Complete Time: 17:59 pm1 10/26 17:46 Order name: NPO; Complete Time: 17:59 pm1 10/26 17:46 Order name: Urine Dipstick-Ancillary (obtain specimen); Complete Time: 17:59 pm1 10/26 17:58 Order name: Urine --Ancillary (enter results) ms 10/26 18:47 Order name: Matter Eval Tm 1 EDMS Administered Medications: No medications were administered Disposition: 10/27 06:41 Co-signature as Attending Physician, Guillermo Davis MD I agree with the assessment and kdr plan of care. Disposition: 10/27/19 18:51 Discharged to Home. Impression: Threatened . - Condition is Stable. - Discharge Instructions: Threatened Miscarriage, Vaginal Bleeding During , Second Trimester, Pelvic Rest. - Medication Reconciliation Form, Thank You Letter, Antibiotic Education, Prescription Opioid Use form. - Follow up: Emergency Department; When: As needed; Reason: Worsening of condition. Follow up: Private Physician; When: 2 - 3 days; Reason: Recheck today's complaints, Continuance of care, Re-evaluation by your physician. - Problem is new. - Symptoms have improved. Signatures: Dispatcher [employer] [facility] Guillermo Davis MD MD kdr Antony Reyes, MEAT LOINER MEAT LOINER pm1 John Burrell, RN RN bp AcobNoemi RN RN ca1 Corrections: (The following items were deleted from the chart) 10/26 18:47 17:46 Transvaginal Ob+US.RAD.BRZ ordered. [facility] 18:58 18:51 10/27/2019 18:51 Discharged to Home. Impression: Threatened . Condition bp is Stable. Forms are Medication Reconciliation Form, Thank You Letter, Antibiotic Education, Prescription Opioid Use. Follow up: Emergency Department; When: As needed; Reason: Worsening of condition. Follow up: Private Physician; When: 2 - 3 days; Reason: Recheck today's complaints, Continuance of care, Re-evaluation by your physician. Problem is new. Symptoms have improved. pm1 10/27 02:09 10/26 19:38 ED course: Informed the patient of discussion with Dr. Plata, his U/S pm1 interpretation, and recommendation that she get repeat U/S in 2-3. pm1
[2019-10-27 18:58] LABS: HCG, Quantitative 41175 mIU/mL (1-3)
[2019-10-27 19:09] VITALS: TEMP 98.2
[2019-10-27 19:10] VITALS: BP 116/62; O2SAT 100
--- NOTE | 2019-10-27 19:39 | RAD REPORT ---
EXAM DESCRIPTION: US - Matter Sharifa Tm 1 - 10/27/2019 6:47 pm CLINICAL HISTORY: with vaginal bleeding COMPARISON: None FINDINGS: The uterus measures 11 x 8 x 10 centimeters. A normal appearing gestational sac is present . A pole with crown-rump length 7.1 centimeters. Variable presentation. Cardiac activity 157 be ats per minute. The placenta is anterior. It is low lying. Hypoechoic structure lies between the placenta and the mikael rine wall measuring 3 centimeters. Neither ovary seen secondary to overlying bowel gas. Right and left adnexal unremarkable. No significant free fluid IMPRESSION: Single live intrauterine with an estimated gestational age 13 weeks 2 days FLOYD 05/01/2020 Variable presentation 3 centimeter hypoechoic structure between the placenta and uterine wall may represent a retroplacenta l hematoma, a myometrial contraction or fibroid. Follow-up ultrasound in 2-3 days recommended for re- evaluation. The exam was discussed with Antony in the Emergency Room 7:28 p.m. October 27, 2019
[2019-10-27 19:48] LABS: Urine Blood NEGATIVE (NEG); Urine Glucose NEGATIVE (NEG); Urine Protein NEGATIVE (NEG); Urine Specific Gravity >1.030 (1.005-1.030)
== END 2019-10-27 18:58 | disposition home or self-care (01) ==
LOC: ER 17:30
DX: O20.0 Threatened abortion (principal)
CPT/HCPCS: 36415; 76801; 80048; 81003; 81015; 81025; 84702; 85025; 86900; 86901; 99283

== ENCOUNTER 2019-11-24 10:12 | Emergency (ER) | payer OTHER, SELFPAY ==
--- OUTSIDE RECORDS SUMMARY | 2019-11-24 10:15 | XMS REPORT ---
:2000 Author Organization [facility] t Address [address] [place] [address] Care Team Providers Name Role Phone Unavailable Unavailable Unavailable Problems This patient has no known problems. Allergies, Adverse Reactions, Alerts This patient has no known allergies or adverse reactions. Medications This patient has no known medications.
--- OUTSIDE RECORDS SUMMARY | 2019-11-24 10:18 | XMS REPORT | Summary of Care ---
:2000 Author Organization [facility] Address [address] [place] [address] Care Team Providers Name Role Phone Shahnaz Guzman Primary Care Provider Marquise Cortes MD Insurance Hmo Unavailable Reason for Visit Reason Comments Appointment Encounter Details Date Type Department Care Team Description 10/31/2019 Telephone [facility] RMP- A Shahnaz Cantu FNP Appointment [address] [facility] [address] [place] [address] [address] [place] [address] [phone] Allergies No Known Allergiesdocumented as of this encounter (statuses as of 11/01/2019) Medications Medication Sig Dispensed Refills Start Date End Date Status vit Take 1 Packet by 30 Each 6 09/05/2018 Active 70-fcpw-iqxpm-dha mouth daily. (SELECT-OB + DHA) 29 mg iron-1 mg -250 mg combo packIndications: Supervision of high risk , antepartum tyxivwdpfhnnr-bpay-utr Take 1 capsule by 30 capsule 0 01/06/20 19 Active albital (ESGIC) per mouth every 4 capsuleIndications: (four) hours as headache in needed for second trimester Headache. Iron, Cbn & Take 1 tablet by 60 tablet 3 01/08/2019 Active Namr-OK-T18-C-DSS mouth daily. (FERRALET 90 DUAL-IRON DELIVERY) 90-1-12-50 lm-kv-wbf-mg per tabletIndications: Anemia of mother in , antepartum documented as of this encounter (statuses as of 11/01/2019) Active Problems Patient Care Coordination Note IOL 02-14-18 at 7am Problem Noted Date GBS (group B Streptococcus carrier), +RV culture, curr ently 03/14/2019 Overview: Address in labor and Delivery Supervision of high risk in third trimester 02/13/2019 Blunt trauma to abdomen, initial encounter 02/13/2019 Anemia of mother in , antepartum 01/08/2019 Limited care in second trimester 11/30/2018 Candidiasis of vulva and vagina 11/30/2018 Chlamydia 09/28/2018 Multiparity 08/25/2018 Teen parent 02/09/2018 History of spontaneous , currently Family history of Down syndrome 06/20/2017 Obesity in 06/20/2017 High risk , antepartum 02/18/2017 documented as of this encounter (statuses as of 11/01/2019) Resolved Problems Problem Noted Date Resolved Date (spontaneous vaginal delivery) 02/09/201808/25 Single live 02/09/2018 08/25/2018 Episiotomy obstetrical, second degree 02/09/2018 PIH ( induced hypertension) w/o SF 02/09/2018 08/25/2018 38 weeks gestation of 02/08/2018 02/11/20 18 Right flank pain 01/29/2018 02/10/2018 36 weeks gestation of 01/28/2018 02/11/20 18 Premature uterine contractions causing threatened premature 01/28/2018 02/10/2018 labor in third trimester Diarrhea 01/28/2018 02/10/2018 Nausea & vomiting 01/28/2018 02/10/2018 Elevated blood pressure affecting , antepartum 01/0602/10/2018 Obesity (BMI 30-39.9) 01/12/2018 01/17/2018 Supervision of high risk in third trimester 201708/25/2018 Abnormal maternal glucose tolerance, antepartum 11/16/2017 08/25/2018 Overview: Passed 3hr Acute URI 11/15/2017 01/17/2018 Urinary frequency 11/15/2017 01/17/2018 Headache 10/30/2017 02/10/2018 23 weeks gestation of 10/29/2017 01/18/20 18 Elevated blood pressure reading without diagnosis of 018 01/17/2018 hypertension Encounter for supervision of high risk in second 0 08/25/2017 01/09/2018 trimester, antepartum Supervision of high risk , antepartum, first trimes ter 06/20/2017 08/25/2017 High risk teen in first trimester 06/20/2017 08/25/2017 Missed menses 06/20/2017 01/17/2018 Nausea and vomiting during prior to 22 weeks 02/1806/20/2017 gestation Skin lesion 02/18/2017 06/20/2017 Well woman exam 11/26/2015 02/18/2017 Contraceptive management 11/26/2015 02/18/2017 Screen for STD (sexually transmitted disease) 11/26/2015 02/18/2017 Dysmenorrhea 11/26/2015 02/18/2017 documented as of this encounter (statuses as of 11/01/2019) Immunizations Name Administration Dates Next Due Tdap [...] Treatment Date Type Specialty Care Team Description 11/05/2019 Office Visit OB Satellites , [facility] Room 11/05/2019 Initial Visit OB Satellites Corinne Guzman, CLOTH SHRINKING SUPERVISOR [address] [place], [place] [address] [phone] Health Maintenance Due Date Last Done Comments MENINGOCOCCAL B VACCINES (1 2009 of 2 - Risk Bexsero 2-dose series) HPV VACCINES (1 - Female 2010 2-dose series) WELL CARE VISIT: 12-21 YEARS 2011 (yearly) INFLUENZA VACCINE (#1) 2019 CHLAMYDIA SCREENING 03/12/2020 03/12/2019, 11/30/2018, 08/25/2018, Additional history exists DTaP,Tdap,and Td Vaccines (4 01/05/2029 01/05/2019, 018, - Td) 08/08/2015 MENINGOCOCCAL VACCINE Aged Out No longer eligible based on patient 's age to complete this topic PNEUMOCOCCAL 0-64 YEARS Aged Out No longe r eligible COMBINED SERIES based on patient 's age to complete this topic documented as of this encounter Results Not on filedocumented in this encounter Insurance Payer Benefit Plan / Subscriber ID Effective Phone Address [facility] xxxxxxxxx 2018-[address]i [address] Medic aid HEALTH CHOICE - HEALTH CHO[place] nt [id number] 1 MANAGED MEDICAID [place], [place] [phone] documented as of this encounter Advance Directives Name Relationship Healthcare Agent Relationship Co mmunication Guillermina Finley Mother Primary healthcare agent
[2019-11-24 11:03] LABS: Urine Blood NEGATIVE (NEG); Urine Glucose NEGATIVE (NEG); Urine Protein NEGATIVE (NEG); Urine Specific Gravity 1.025 (1.005-1.030)
[2019-11-24 11:09] LABS: Absolute Lymphocytes (CBC) 1.4 K/uL (0.7-4.9); Lymphocytes % 17.8 % (15.3-44.8); MPV 8.9 fL (7.6-11.3); RBC Red Blood Cell Count 4.47 M/uL (3.86-4.86)
[2019-11-24 11:43] LABS: BUN Blood Urea Nitrogen 10 mg/dL (7-18); Bicarbonate 23 mmol/L (21-32); Glucose Level 105 mg/dL (74-106); HCG, Quantitative 17006 mIU/mL (1-3); Potassium 3.8 mmol/L (3.5-5.1); Sodium Level 139 mmol/L (136-145)
[2019-11-24] MEDS ORDERED: NA CHLORIDE 0.9% 1,000 ML ONE (11:50)
--- NOTE | 2019-11-24 13:15 | RAD REPORT ---
EXAM DESCRIPTION: US - OB Limited - 11/24/2019 12:43 pm CLINICAL HISTORY: ABD PAIN age. COMPARISON: Matter Eval Tm 1 dated 10/27/2019 FINDINGS: Limited examination was requested. A single cephalic presenting gestation is identified. Heart rate normal. No gross abnormality seen. The estimated gestational age (EGA) is 17 weeks 1 day with an FLOYD of05/02/2020. The placenta is grade 0, anterior in location. No placenta previa. The amniotic fluid index is 11.3 cm, with largest pocket 3.4 cm. IMPRESSION: No acute abnormality detected on limited obstetrical ultrasound.
--- NOTE | 2019-11-24 13:23 | EDPHYS ---
Physician Documentation [facility] Name: Richar Tariq Age: 19 yrs Sex: Female : 2000 Arrival Date: 11/24/2019 Time: 10:14 Bed 17 Private MD: ED Physician Terrance Shen HPI: 11/23 11:21 This 19 yrs old Female presents to ER via Ambulatory with complaints of snw Abdominal Pain, Vaginal Bleeding, + Preg <12wks. 11:21 Onset: The symptoms/episode began/occurred gradually, 1 month(s) ago, and became snw persistent. The symptoms do not radiate. The symptoms are described as crampy. Severity of pain: At its worst the pain was moderate. It is unknown whether or not the patient has had similar symptoms in the past. The patient has not recently seen a physician, has not been to OB. . 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 - Social history:: Smoking status: Patient denies any tobacco usage or history of. ROS: 11:03 Constitutional: Negative for fever, chills, and weight loss, Eyes: Negative for injury, snw pain, redness, and discharge, ENT: Negative for injury, pain, and discharge, Neck: Negative for injury, pain, and swelling, Cardiovascular: Negative for chest pain, palpitations, and edema, Respiratory: Negative for shortness of breath, cough, wheezing, and pleuritic chest pain, Back: Negative for injury and pain, : Negative for injury, discharge, and swelling, intermittent vaginal bleeding since + . Pt states she is 17 wks MS/Extremity: Negative for injury and deformity, Skin: Negative for injury, rash, and discoloration, Neuro: Negative for headache, weakness, numbness, tingling, and seizure, Psych: Negative for depression, anxiety, suicide ideation, homicidal ideation, and hallucinations. 11:03 Abdomen/GI: Positive for abdominal pain. 11:03 Abdomen/GI: Positive for of the left upper quadrant. Exam: 11:20 Constitutional: This is a well developed, well nourished patient who is awake, alert, snw and in no acute distress. Head/Face: Normocephalic, atraumatic. Eyes: Pupils equal round and reactive to light, extra-ocular motions intact. Lids and lashes normal. Conjunctiva and sclera are non-icteric and not injected. Cornea within normal limits. Periorbital areas with no swelling, redness, or edema. ENT: Nares patent. No nasal discharge, no septal abnormalities noted. Tympanic membranes are normal and external auditory canals are clear. Oropharynx with no redness, swelling, or masses, exudates, or evidence of obstruction, uvula midline. Mucous membranes moist. Neck: Trachea midline, no thyromegaly or masses palpated, and no cervical lymphadenopathy. Supple, full range of motion without nuchal rigidity, or vertebral point tenderness. No Meningismus. Chest/axilla: Normal chest wall appearance and motion. Nontender with no deformity. No lesions are appreciated. Cardiovascular: Regular rate and rhythm with a normal S1 and S2. No gallops, murmurs, or rubs. Normal PMI, no JVD. No pulse deficits. Respiratory: Lungs have equal breath sounds bilaterally, clear to auscultation and percussion. No rales, rhonchi or wheezes noted. No increased work of breathing, no retractions or nasal flaring. Back: No spinal tenderness. No costovertebral tenderness. Full range of motion. Skin: Warm, dry with normal turgor. Normal color with no rashes, no lesions, and no evidence of cellulitis. MS/ Extremity: Pulses equal, no cyanosis. Neurovascular intact. Full, normal range of motion. Neuro: Awake and alert, GCS 15, oriented to person, place, time, and situation. Cranial nerves II-XII grossly intact. Motor strength 5/5 in all extremities. Sensory grossly intact. Cerebellar exam normal. Normal gait. Psych: Awake, alert, with orientation to person, place and time. Behavior, mood, and affect are within normal limits. 11:20 Abdomen/GI: Inspection: abdomen appears normal, Bowel sounds: normal, Palpation: mild abdominal tenderness, in the left upper quadrant. Vital Signs: 10:22 BP 118 / 66; Pulse 88; Resp 16 S; Temp 98.3(O); Pulse Ox 98% on R/A; Pain 0/10; aa5 11:22 BP 110 / 67; Pulse 87; Resp 17; Pulse Ox 99% ; rb1 12:22 BP 116 / 69; Pulse 86; Resp 16; Pulse Ox 98% on R/A; rb1 13:22 BP 107 / 60; Pulse 78; Resp 17; Pulse Ox 99% on R/A; rb1 MDM: 10:29 Patient medically screened. snw 13:43 Data reviewed: vital signs, nurses notes, lab test result(s), radiologic studies. Data snw interpreted: Pulse oximetry: on room air is 98 %. Interpretation: normal. Counseling: I had a detailed discussion with the patient and/or guardian regarding: the historical points, exam findings, and any diagnostic results supporting the discharge/admit diagnosis, lab results, radiology results, the need for outpatient follow up, to return to the emergency department if symptoms worsen or persist or if there are any questions or concerns that arise at home. Special discussion: Based on the patient's Hx, exam, and Dx evaluation, there is no indication for emergent surgery or inpatient Tx. It is understood by the patient/guardian that if the Sx's persist or worsen they need to return immediately for re-evaluation. Based on the history and exam findings, there is no indication for further emergent testing or inpatient evaluation. I discussed with the patient/guardian the need to see the OB Gyne specialist for further evaluation of the symptoms. I discussed with the patient/guardian the need to see the primary care provider for further evaluation of the symptoms. 11/23 10:39 Order name: Quantitative Hcg; Complete Time: 11:45 snw 11/23 10:39 Order name: Abo/rh Typing; Complete Time: 11:45 snw 11/23 10:39 Order name: Basic Metabolic Panel; Complete Time: 11:45 snw 11/23 10:39 Order name: CBC with Diff; Complete Time: 11:45 snw 11/23 10:41 Order name: Urine Dipstick--Ancillary (enter results); Complete Time: 11:45 eb 11/23 10:41 Order name: Urine --Ancillary (enter results); Complete Time: 11:45 eb 11/23 10:39 Order name: Urine Test (obtain specimen); Complete Time: 10:42 snw 11/23 10:39 Order name: IV Saline Lock; Complete Time: 11:04 snw 11/23 10:39 Order name: Labs collected and sent; Complete Time: 11:04 snw 11/23 10:39 Order name: NPO; Complete Time: 11:04 snw 11/23 10:39 Order name: Urine Dipstick-Ancillary (obtain specimen); Complete Time: 10:42 snw 11/23 10:39 Order name: US OB Limited; Complete Time: 13:21 snw Administered Medications: Discontinued: NS 0.9% 1000 ml IV at 125 ml/hr continuous 12:00 Drug: NS 0.9% 1000 ml Route: IV; Rate: 125 ml/hr; Site: right antecubital; rb1 Disposition: 14:15 Co-signature as Attending Physician, Terrance Shen MD. rn Disposition: 11/24/19 13:22 Discharged to Home. Impression: related conditions, unspecified, second trimester, Abnormal uterine and vaginal bleeding, unspecified. - Condition is Stable. - Discharge Instructions: Iron Deficiency Anemia, Adult, Vaginal Bleeding During , Second Trimester, Abdominal Pain During , Yzgg-wz-Ghho, Second Trimester of , Tcnk-lv-Rlez. - Prescriptions for Vitamin 27- 0.8 mg Oral Tablet - take 1 tablet by ORAL route once daily; 60 tablet. - Medication Reconciliation Form, Thank You Letter, Antibiotic Education, Prescription Opioid Use form. - Follow up: Emergency Department; When: As needed; Reason: Worsening of condition. Follow up: Private Physician; When: 1 week; Reason: Recheck today's complaints, Continuance of care, Re-evaluation by your physician. Signatures: Dispatcher [employer] EDMS Maritza Plata, JAVASCRIPT SOFTWARE ENGINEER-C JAVASCRIPT SOFTWARE ENGINEER-Csnw Terrance Shen MD MD rn Calderon, Audri RN RN aa5 Briana Miranda RN RN rb1 Corrections: (The following items were deleted from the chart) 11:20 11:03 Constitutional: Negative for fever, chills, and weight loss, Eyes: Negative for snw injury, pain, redness, and discharge, ENT: Negative for injury, pain, and discharge, Neck: Negative for injury, pain, and swelling, Cardiovascular: Negative for chest pain, palpitations, and edema, Respiratory: Negative for shortness of breath, cough, wheezing, and pleuritic chest pain, Back: Negative for injury and pain, : Negative for injury, bleeding, discharge, and swelling, MS/Extremity: Negative for injury and deformity, Skin: Negative for injury, rash, and discoloration, Neuro: Negative for headache, weakness, numbness, tingling, and seizure, Psych: Negative for depression, anxiety, suicide ideation, homicidal ideation, and hallucinations, snw 13:23 13:11/24/2019 13:22 Discharged to Home. Impression: related conditions, snw unspecified; related conditions, unspecified, second trimester. Condition is Stable. Forms are Medication Reconciliation Form, Thank You Letter, Antibiotic Education, Prescription Opioid Use. Follow up: Emergency Department; When: As needed; Reason: Worsening of condition. Follow up: Private Physician; When: 1 week; Reason: Recheck today's complaints, Continuance of care, Re-evaluation by your physician. [facility] : 13:11/24/2019 13:22 Discharged to Home. Impression: related conditions, snw unspecified, second trimester. Condition is Stable. Forms are Medication Reconciliation Form, Thank You Letter, Antibiotic Education, Prescription Opioid Use. Follow up: Emergency Department; When: As needed; Reason: Worsening of condition. Follow up: Private Physician; When: 1 week; Reason: Recheck today's complaints, Continuance of care, Re-evaluation by your physician. sn 13:57 13:11/24/2019 13:22 Discharged to Home. Impression: related conditions, rb1 unspecified, second trimester; Abnormal uterine and vaginal bleeding, unspecified. Condition is Stable. Forms are Medication Reconciliation Form, Thank You Letter, Antibiotic Education, Prescription Opioid Use. Follow up: Emergency Department; When: As needed; Reason: Worsening of condition. Follow up: Private Physician; When: 1 week; Reason: Recheck today's complaints, Continuance of care, Re-evaluation by your physician. snw
--- NOTE | 2019-11-24 13:23 | ER ---
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 Pt reports left-sided abd pain, pt also reports vaginal bleeding on and off since August. Pt reports being approximately 17 weeks , pt states "none of the GRAINER MACHINE's are able to get me in to see them". 10:22 Acuity: KYRIE 3 aa5 10:22 Method Of Arrival: Ambulatory aa5 10:22 Initial Sepsis Screen: Does the patient meet any 2 criteria? No. Patient's initial aa5 sepsis screen is negative. Does the patient have a suspected source of infection? No. Patient's initial sepsis screen is negative. Risk Assessment: Do you want to hurt yourself or someone else? Patient reports no desire to harm self or others. 10:22 Coronavirus screen: Proceed with normal triage. Patient denies a cough. Patient denies aa5 shortness of breath or difficulty breathing. Patient denies measured and/or subjective temperature greater than 100.4F prior to today's visit. Patient denies travel on a cruise ship or to a country the [facility] currently lists as an affected area. Patient denies contact with known and/or suspected case of COVID-19. Onset of symptoms was August 2019. 10:22 Ebola Screen: Patient negative for fever greater than or equal to 101.5 degrees aa5 Fahrenheit, and additional compatible Ebola Virus Disease symptoms. 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 - Social history:: Smoking status: Patient denies any tobacco usage or history of. Screenin:00 Abuse screen: Denies threats or abuse. Nutritional screening: No deficits noted. rb1 Tuberculosis screening: No symptoms or risk factors identified. Fall Risk None identified. Assessment: 11:00 General: Appears in no apparent distress. comfortable, Behavior is calm, cooperative, rb1 Denies fever. Pain: Complains of pain in left upper quadrant Pain currently is 10 out of 10 on a pain scale. Quality of pain is described as burning, Pt. reports that it happens when she picks her children up. Is intermittent. Neuro: Level of Consciousness is awake, alert, obeys commands, Oriented to person, place, time, situation. Cardiovascular: Capillary refill < 3 seconds is brisk in bilateral fingers. Respiratory: Airway is patent Respiratory effort is even, unlabored, Respiratory pattern is regular, symmetrical. GI: Bowel sounds present X 4 quads. Abd is soft X 4 quads Patient currently denies nausea, vomiting. : No signs and/or symptoms were reported regarding the genitourinary system. Derm: Skin is pink, warm \\T\\ dry. 12:00 Reassessment: Patient appears in no apparent distress at this time. US at pt. bedside. rb1 13:00 Reassessment: Patient appears in no apparent distress at this time. Patient and/or rb1 family updated on plan of care and expected duration. Pain level reassessed. Patient is alert, oriented x 3, equal unlabored respirations, skin warm/dry/pink. 13:50 Reassessment: Patient appears in no apparent distress at this time. No changes from rb1 previously documented assessment. Pt. is on her telephone. Vital Signs: 10:22 BP 118 / 66; Pulse 88; Resp 16 S; Temp 98.3(O); Pulse Ox 98% on R/A; Pain 0/10; aa5 11:22 BP 110 / 67; Pulse 87; Resp 17; Pulse Ox 99% ; rb1 12:22 BP 116 / 69; Pulse 86; Resp 16; Pulse Ox 98% on R/A; rb1 13:22 BP 107 / 60; Pulse 78; Resp 17; Pulse Ox 99% on R/A; rb1 ED Course: 10:14 Patient arrived in ED. ag5 10:22 Arm band placed on. aa5 10:29 Maritza Plata FNP-C is PHCP. snw 10:29 Terrance Shen MD is Attending Physician. snw 10:36 Triage completed. aa5 11:00 Patient has correct armband on for positive identification. Bed in low position. Call rb1 light in reach. Side rails up X 1. Pulse ox on. NIBP on. 11:05 Initial lab(s) drawn, by mi, sent to lab. Inserted saline lock: 20 gauge in right em1 antecubital area, using aseptic technique. Blood collected. 12:12 Briana Miranda, RN is Primary Nurse. rb1 12:34 Ultrasound completed. Patient tolerated well. sg3 12:35 US OB Limited In Process Unspecified. EDMS 13:56 No provider procedures requiring assistance completed. IV discontinued, intact, rb1 bleeding controlled, No redness/swelling at site. Pressure dressing applied. Administered Medications: Discontinued: NS 0.9% 1000 ml IV at 125 ml/hr continuous 12:00 Drug: NS 0.9% 1000 ml Route: IV; Rate: 125 ml/hr; Site: right antecubital; rb1 Outcome: 13:22 Discharge ordered by MD. snw 13:56 Discharged to home ambulatory. rb1 13:56 Condition: stable 13:56 Discharge instructions given to patient, Instructed on discharge instructions, follow up and referral plans. medication usage, Demonstrated understanding of instructions, follow-up care, medications, Prescriptions given X 1. 13:57 Patient left the ED. rb1 Signatures: Dispatcher [employer] EDMT Maritza Plata, SOFTWARE RELEASE MANAGER-C SOFTWARE RELEASE MANAGER-Samw Kieran Montalvo em1 Tiffanie Hou RN RN aa5 Briana Miranda, RN RN [place] Nivia Do 3 Edita Marlow 5
[2019-11-24 14:15] VITALS: TEMP 98.3
[2019-11-24 14:19] VITALS: BP 107/60; O2SAT 99
== END 2019-11-24 13:57 | disposition home or self-care (01) ==
LOC: ER 10:12
DX: O46.92 Antepartum hemorrhage, unspecified, second trimester (principal); O13.2 Gestational [pregnancy-induced] hypertension without significant proteinuria, second trimester; Z3A.17 17 weeks gestation of pregnancy
CPT/HCPCS: 36415; 76815; 80048; 81003; 81025; 84702; 85025; 86900; 86901; 99284; J7030

== ENCOUNTER 2021-04-09 22:03 | Emergency (ER) | payer OTHER ==
--- OUTSIDE RECORDS SUMMARY | 2021-04-09 22:08 | XMS REPORT | Continuity of Care Document ---
:2000 Author Organization [facility] t Address [address] [place] [address] Care Team Providers Name Role Phone Unavailable Unavailable Unavailable Problems This patient has no known problems. Allergies, Adverse Reactions, Alerts This patient has no known allergies or adverse reactions. Medications This patient has no known medications. Procedures This patient has no known procedures. Results This patient has no known results.
[2021-04-09] MEDS ORDERED: TETANUS & DIPHTHERIA TOX,ADULT 0.5 ML VIAL ONE (22:52)
--- NOTE | 2021-04-10 00:36 | ER ---
Nurse's Notes [facility] Name: Richar Tariq Age: 20 yrs Sex: Female : 2000 Arrival Date: 04/09/2021 Time: 22:08 Bed External Waiting Private MD: Diagnosis: Presentation: 04/09 22:22 Chief complaint: Patient states: Right thumb pain, Pt was cleaning and got her fake kg nail got caught and pulled it backwards. Coronavirus screen: Vaccine status: Patient reports receiving the 1st dose of the Covid vaccine. Date March 26, 2021 Modern. Ebola Screen: Patient negative for fever greater than or equal to 101.5 degrees Fahrenheit, and additional compatible Ebola Virus Disease symptoms Patient denies exposure to infectious person. Patient denies travel to an Ebola-affected area in the 21 days before illness onset. Initial Sepsis Screen: Does the patient meet any 2 criteria? No. Patient's initial sepsis screen is negative. Does the patient have a suspected source of infection? No. Patient's initial sepsis screen is negative. Risk Assessment: Do you want to hurt yourself or someone else? Patient reports no desire to harm self or others. Onset of symptoms was April 09, 2021 at 19:00. 22:22 Method Of Arrival: Ambulatory kg 22:22 Acuity: KYRIE 4 kg Triage Assessment: 22:25 General: Appears in no apparent distress. Behavior is calm, cooperative, appropriate kg for age, quiet. Pain: Denies pain. Complains of pain in dorsal aspect of distal phalanx of right thumb and palmar aspect of distal phalanx of right thumb. Musculoskeletal: Reports pain in Right thumb. Injury Description: Avulsion sustained to Right thumb. Historical: - Allergies: 22:25 No Known Allergies; kg - Home Meds: 22:25 None [Active]; kg - PMHx: 22:25 gestational hypertension; Ovarian cyst; kg - PSHx: 22:25 None; kg - Immunization history:: Adult Immunizations not up to date, Client reports receiving the 1st dose of the Covid vaccine, March 23, 2021 [facility]. - Social history:: Smoking status: Patient denies any tobacco usage or history of. Vital Signs: 22:22 Pulse 103; Resp 20; Temp 97.2(TE); Pulse Ox 100% on R/A; Weight 104.33 kg (R); Height 5 kg ft. 6 in. (167.64 cm) (R); Pain 610; 22:22 Body Mass Index 37.12 (104.33 kg, 167.64 cm) kg ED Course: 22:08 Patient arrived in ED. 22:17 Suraj Welch [facility]. queenie 22:17 Woody Pruett MD is Attending Physician. stephie 22:25 Triage completed. kg 04/10 00:35 Patient's name was called from ER lobby. No response. Unable to locate patient. Will bb disposition as left without being seen by a provider. 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 Exp: kg 05/08/2022. Lot #: [id number]. } Route: IM; Site: left deltoid; Outcome: 04/10 00:35 Patient left the ED. bb Signatures: Suraj Welch PA PA jmm Ballard, Brenda, VIRI RN Mague Nicole, VIRI RN kg Erica Eden
[2021-04-10 00:40] VITALS: TEMP 97.2; O2SAT 100
== END 2021-04-10 00:35 | disposition left against medical advice (07) ==
LOC: ER 22:03
DX: Z53.21 Procedure and treatment not carried out due to patient leaving prior to being seen by health care provider (principal); Z23 Encounter for immunization
CPT/HCPCS: 90471; 90714; 99282

== ENCOUNTER 2021-04-27 10:28 | Emergency (ER) | payer OTHER ==
--- NOTE | 2021-04-27 12:28 | ER ---
Nurse's Notes [facility] Name: Richar Tariq Age: 20 yrs Sex: Female : 2000 Arrival Date: 04/27/2021 Time: 10:30 Bed 9 Private MD: Diagnosis: Presentation: 04/27 10:55 Chief complaint: Patient states: Fever, MILLER, congestion x 3 days. Coronavirus screen: jl Vaccine status: Patient reports receiving the 1st dose of the Covid vaccine. Moderna; due for 2nd dose tomorrow. Ebola Screen: No symptoms or risks identified at this time. 10:55 Method Of Arrival: Ambulatory [facility] 10:55 Initial Sepsis Screen: Does the patient meet any 2 criteria? No. Patient's initial jl7 sepsis screen is negative. Does the patient have a suspected source of infection? No. Patient's initial sepsis screen is negative. Risk Assessment: Do you want to hurt yourself or someone else? Patient reports no desire to harm self or others. Onset of symptoms was April 24, 2021. 10:55 Acuity: KYRIE 4 jl7 Triage Assessment: 11:05 Headache History: The patient has had previous headaches and this one is similar to jl7 previous episodes. General: Appears in no apparent distress. uncomfortable, Behavior is calm, cooperative, appropriate for age. Pain: Complains of pain in miller Pain currently is 5 out of 10 on a pain scale. Pain began gradually, Also complains of no other associated symptoms. Neuro: Level of Consciousness is awake, alert, obeys commands, Oriented to person, place, time, situation. 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 - Social history:: Smoking status: Patient denies any tobacco usage or history of. Screenin:18 Abuse screen: Denies threats or abuse. Nutritional screening: No deficits noted. oh Tuberculosis screening: No symptoms or risk factors identified. Fall Risk None identified. Assessment: 11:16 General: Appears in no apparent distress. Behavior is calm, cooperative, Reports oh congestion, bloody green muicus for 3-4 days, requesting covid testing. Pain: Denies pain. Neuro: No deficits noted. Cardiovascular: No deficits noted. Respiratory: Reports pain with cough since congestion, bloody green muicus for 3-4 days. GI: No deficits noted. : No deficits noted. EENT: Reports nasal congestion since for 3-4 days nasal discharge that is yellow that is bloody. Derm: No deficits noted. Musculoskeletal: No deficits noted. Vital Signs: 10:55 BP 124 / 74; Pulse 70; Resp 19; Temp 98.4; Pulse Ox 99% ; Weight 99.79 kg; Height 5 ft. jl7 6 in. (167.64 cm); Pain 5/10; 10:55 Body Mass Index 35.51 (99.79 kg, 167.64 cm) jl7 ED Course: 10:30 Patient arrived in ED. rg4 11:05 Triage completed. jl7 11:05 Arm band placed on right wrist. jl7 11:11 Bernard Thompson PA is PHCP. cp 11:11 Terrance Shen MD is Attending Physician. cp 11:19 Bed in low position. Call light in reach. oh 12:07 Antony Reyes NP is PHCP. pm1 12:07 Terrance Shen MD is Attending Physician. pm1 Administered Medications: No medications were administered Outcome: 12:24 Condition: pt walked out, paged over head. oh 12:27 Patient left the ED. oh Signatures: Bernard Thompson PA PA cp Marinas, Patrick, NP GLASS INSTALLER pm1 Liss Raya rg4 Denita Medina RN RN jl7 Óscar Silver RN RN oh
--- NOTE | 2021-04-27 12:28 | EDPHYS ---
Physician Documentation [facility] Name: Richar Tariq Age: 20 yrs Sex: Female : 2000 Arrival Date: 04/27/2021 Time: 10:30 Bed 9 Private MD: ED Physician Terrance Shen SKULL GRINDER: 04/27 11:05 LMP N/A - control method jl7 Historical: - Allergies: 11:05 No Known Allergies; jl7 - Home Meds: 11:05 None [Active]; jl7 - PMHx: 11:05 gestational hypertension; Ovarian cyst; jl7 - PSHx: 11:05 None; jl7 - Immunization history:: Adult Immunizations up to date. - Social history:: Smoking status: Patient denies any tobacco usage or history of. Vital Signs: 10:55 BP 124 / 74; Pulse 70; Resp 19; Temp 98.4; Pulse Ox 99% ; Weight 99.79 kg; Height 5 ft. jl7 6 in. (167.64 cm); Pain 5/10; 10:55 Body Mass Index 35.51 (99.79 kg, 167.64 cm) jl7 MDM: 11:12 Patient medically screened. cp 12:10 ED course: No patient present in the room. pm1 Administered Medications: No medications were administered Disposition: 13:52 Co-signature as Attending Physician, Terrance Shen MD. rn Disposition Summary: 04/27/21 12:27 Eloped Disposition: before being seen by provider oh Reason: unknown oh Signatures: Terrance Shen MD MD rn Bernard Thompson PA PA cp Antony Reyes NP SENIOR ABAP DEVELOPER pm1 Denita Medina RN RN jl7 Óscar Silver RN RN oh
[2021-04-27 13:12] VITALS: BP 124/74; TEMP 98.4; O2SAT 99
== END 2021-04-27 12:27 | disposition left against medical advice (07) ==
LOC: ER 10:28
DX: Z53.21 Procedure and treatment not carried out due to patient leaving prior to being seen by health care provider (principal)
CPT/HCPCS: 99281

== ENCOUNTER 2021-10-24 19:24 | Emergency (ER) | payer OTHER ==
--- OUTSIDE RECORDS SUMMARY | 2021-10-24 19:31 | XMS REPORT | Continuity of Care Document ---
:1999 Author Organization [facility] t Address [address] [place] [address] Care Team Providers Name Role Phone Prudence CHAVARRIA Attending Clinician Rayray Shah MD Attending Clinician Chino MEREDITH Attending Clinician Unavailable Nahed BERRIOS C Attending Clinician Heather DOCKERY Attending Clinician Unavailable Corinne FRANCO Attending Clinician Unavailable Salvador CHAVARRIA, R Attending Clinician Doctor Unassigned, Name Attending Clinician Unavailable 3, [facility] Usg Room Attending Clinician Unavailable Elver MEREDITH, Camron Attending Clinician Unavailable Rayray Shah MD Admitting Clinician Payers Payer Name Policy Type Policy Number Effective Date Expiration Date [facility] [id number] 2020 CHOICE MEDICAID 00:00:00 MEDICAID [facility] [place] [id number] 2019 00:00:00 Advance Directives Directive Decision Effective Termination Comments Source Date Date Healthcare Agents on N/A [facility] FileNameRelationshipHealthcare [facility] Agent Medical RelationshipCommunicationIrems Branch [facility] systemrdNvtherHealth Care [phone] (Mobile) Problems Condition Condition Condition Status Onset Resolution Last Treating Co mments Source Name Details Category Date Date Treatment Clinician Date Status Status Disease Active Univers post post 9-16 ity of vacuum[place] is[place] isted 00 Medical vaginal vaginal Branch delivery delivery Anemia, Anemia, Disease Active 2019- Univers 9-16 it y of 00:00: [place] 00 Medical Branch History of History of Disease Active 2020-0 U nivers asthma asthma 9-16 ity of 00:00: [place] 00 Medical Branch 39 weeks 39 weeks Disease Active Unive rs gestation gestation 9-15 ity of of of 00:00: [place] 00 [facility] Need for Need for Disease Active Unive rs Tdap Tdap 7-13 ity of vaccinatio vaccinatio 00:[place] n n 00 Medical Branch Vaginal Vaginal Disease Active Univers discharge discharge 5-18 ity of 00:00: [place] 00 Medical Branch GBS (group GBS (group Disease Active U nivers B B 4-29 ity of streptococ streptococ 00:00[place] cus) UTI cus) UTI 00 Medica l complicati complicati Br anch ng ng Urinary Urinary Disease Active Univers tract tract 4-29 it[place] of infection infection 00:[place] without without 00 Medical hematuria, hematuria, Br anch site site unspecifie unspecifie d d BMI BMI Disease Active Univers 25.0-25.9, 25.0-25.9, 4-27 it y of adult adult 00:00: [place] 00 Medical Branch Over Over Disease Active Univers weight weight 4-27 ity of 00:00: [place] Medical Branch GBS (group GBS (group Disease Active Overview : Univers B B 8-07 Address ity of 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 [place] cus cus 00 and Medical carrier), carrier), Delivery Br anch +RV +RV culture, culture, currently currently Short Short Disease Active Univers interval interval 7-09 ity of between between 00:00: [place] pregnancie pregnancie 00 Mn dical s s Branch affecting affecting in second in second trimester, trimester, antepartum antepartum Blunt Blunt Disease Active Univers trauma to trauma to 7- ity of abdomen, abdomen, 00:00: [place] initial initial 00 Medical encounter encounter Bran ch Anemia of Anemia of Disease Active Uni vers mother in mother in 6-03 ity of , , 00:[place] antepartum antepartum 00 Mn dical Branch Late Late Disease Active Univers 4-25 ity of care care 00:00: [place] affecting affecting 00 [facility] Bran ch in second in second trimester trimester Limited Limited Disease Active 2019 Univers 4-25 ity of care in care in 00:00: [place] second second 00 Medical trimester trimester Bran ch Candidiasi Candidiasi Disease Active 2019- U nivers s of vulva s of vulva 4-25 it y of and vagina and vagina 00:[place] [facility] Chlamydia Chlamydia Disease Active Uni vers 2-21 ity of 00:00: [address] Multiparit Multiparit Disease Active 2019 U nivers y y 1-18 ity of 00:00: [address] Teen Teen Disease Active Univers parent parent 7-05 ity of 00:00: [address] Single Single Disease Active Univers live live 7-05 it y of 00:00: [address] Family Family Disease Active 2016-08 Univers history of history of 1-13 it y of Down Down 00:00: [place] syndrome syndrome 00 Medica l Branch Obesity in Obesity in Disease Active 2016-08 U nivers 1-13 ity of 00:00: [address] Family Family Disease Active 2016-08 Univers history of history of 1-13 it y of Down Down 00:00: [place] syndrome syndrome 00 Medica l Branch History of History of Disease Active 2016-08 U nivers spontaneou spontaneou 1-13 it y of s s 00:00: [place] , , 00 Medi taylor currently currently Bran ch High risk High risk Disease Active Uni vers , , 7-14 [place] y of antepartum ante[place] [address] [place] [address] Allergies, Adverse Reactions, Alerts Allergy Allergy Status Severity Reaction(s) Onset Inactive Treating Comm ents Source Name Type Date Date Clinician NO KNOWN Drug Active Univers ALLERGIE Class ity of S [facility] Social History Social Habit Start Date Stop Date Quantity Comments Source ASSERTION 2019-08-07 University of 00:00:00 [facility] Exposure to Not sure [facility] SARS-CoV-2 [facility] (event) Branch Sex Assigned At Universit y of [facility] Tobacco use and 2020-04-23 2020-04-23 Never used Universit y of exposure 00:00:00 00:00:00 [facility] Alcohol intake 2020-04-23 2020-04-23 Current University 00:00:00 00:00:00 non-drinker of [facility] [place] [facility] alcohol [place] (finding) Smoking Status Start Date Stop Date Source Never smoker [facility] Branch Medications Ordered Filled Start Stop Current Ordering Indication Dosage Frequency Signature Comments Components Source Medication Medication Date Date Medication? Clinician (SIG) Name Name ascorbic 2020-0 Yes 500mg 500 mg, Unive rs acid - Oral, BID, ity of (vitamin C) 13:00: First dose [place] (VITAMIN C) 00 on [facility] Medica l tablet 500 04/24/20 at [facility] mg 0800, Until Discontinu ed, Routine ferrous 2020-0 Yes 325mg 325 mg, Univer s sulfate 04-24 Oral, BID, ity of tablet 325 13:00: First dose [place] mg 00 on [facility] Medical 04/24/20 at Branch 0800, Until Discontinu ed, Routine ferrous 2020-0 2020- No 325mg Take 325 Univ ers sulfate 04-24 09-17 mg by ity of (IRON) 325 12:44: 00:00 mouth 3 [place] as mg (65 mg 16 :00 (three) Medical iron) times Branch tablet daily with meals. docusate 2020-0 Yes [id number] 240mg Take 1 U nivers calcium 240 -17 capsule by it y of mg capsule 00:00: mouth once [place] 00 daily as Medical needed for Branch Constipati on. ibuprofen 2019-0 Yes [id number] 600mg Take 1 Univers 600 mg 9-17 tablet by ity of tablet 00:00: mouth [place] 00 every 6 Medical (six) Branch hours as needed (Pain). Take with food or milk. Iron Fum & 2020-0 Yes [id number] 1{capsu Take 1 Univers P-FA-Vit B -17 le} capsule by ity of & C No.9 00:00: mouth [place] (INTEGRA 00 daily. Medical PLUS) 125 Branch mg iron- 1 mg Cap docusate 2020-0 Yes [id number] 240mg Take 1 U nivers calcium 240 -17 capsule by it y of mg capsule 00:00: mouth once [place] 00 daily as Medical needed for Branch Constipati on. ibuprofen 2020-0 Yes [id number] 600mg Take 1 Univers 600 mg 9-17 tablet by ity of tablet 00:00: mouth [place] 00 every 6 Medical (six) Branch hours as needed (Pain). Take with food or milk. Iron Fum & 2020-0 Yes [id number] 1{capsu Take 1 Univers P-FA-Vit B 04-24 le} capsule by ity of & C No.9 00:00: mouth [place] (INTEGRA 00 daily. Medical PLUS) 125 Branch mg iron- 1 mg Cap rho(D) 2020-0 Yes 300ug 300 mcg, Univer s immune 04-23 Intramuscu ity of globulin 06:42: lar, ONCE, [place] as (RHOGAM) 06 For 1 Medical syringe 300 dose, Branch mcg Conditiona l, Routine simethicone 2020-0 Yes 160mg 160 mg, [facility] [place] (GAS RELIEF 04-23 Oral, ity of (SIMETHICON 06:42: PC+HSPRN, [place] E)) 04 Starting Medical chewable Wed Branch tablet 160 04/23/20 at mg 0142, Until Discontinu ed, Routine, Gas ibuprofen 2020-0 Yes 600mg 600 mg, Univ ers (IBU) 04-23 Oral, ity of tablet 600 06:42: Q6HPRN, [place] mg 03 Starting Medical Wed Branch 04/23/20 at 0142, Until Discontinu ed, Routine, Pain (scale 4-6) acetaminoph 2020-0 Yes 650mg 650 mg, Un [place] en 04-23 Oral, ity of (TYLENOL) 06:42: Q6HPRN, [place] tablet 650 03 Starting Medic al mg Wed Branch 04/23/20 at 0142, Until Discontinu ed, Routine, Pain (scale 1-3) diphenhydrA 2020-0 Yes 25mg 25 mg, Univ ers MINE 04-23 Oral, ity of (BENADRYL) 06:42: Q6HPRN, [place] tablet 25 03 Starting Medica l mg Wed Branch 04/23/20 at 0142, Until Discontinu ed, Routine, Sleep, Itching diphenhydrA 2020-0 Yes 25mg 25 mg, IV U nivers MINE-0.9 % 04-23 Piggyback, ity of sod.chlr 06:42: Administer [place] (BENADRYL) 03 over 30 Medica l 25 mg/50 mL Minutes, Bran ch piggyback Q6HPRN, 25 mg Starting 04/23/20 at 0142, Until Discontinu ed, Routine, Itching ondansetron 2020-0 Yes 4mg 4 mg, Slow Univers (ZOFRAN 04-23 IV Push, ity of (PF)) 06:42: Q8HPRN, [place] injection 4 03 Starting Medi taylor mg Wed Branch 04/23/20 at 0142, Until Discontinu ed, Routine, Nausea and Vomiting (N/V) docusate 2020-0 Yes 240mg 240 mg, Unive rs calcium 04-23 Oral, ity of (SURFAK) 06:42: QDAILYPRN, [place] capsule 240 03 Starting Medi taylor mg Wed Branch 04/23/20 at 0142, Until Discontinu ed, Routine, Constipati on magnesium 2020-0 Yes 30mL 30 mL, Univer s hydroxide 04-23 Oral, ity of (MILK OF 06:42: QDAILYPRN, [place] MAGNESIA) 03 Starting Medica l 400 mg/5 mL [facility] Branch suspension 04/23/20 at 30 mL 0142, Until Discontinu ed, Routine, Constipati on benzocaine- 2020-0 Yes Topical, [place] menthol 04-23 PRN, ity of (DERMOPLAST 06:42: Starting [place] ) 20-0.5 % 03 Tue Medical topical 04/23/20 at Branch spray 0142, Until Discontinu ed, Routine, Perineum discomfort human 2019-0 Yes .5mL 0.5 mL, Univers papillomav 04-23 Intramuscu ity of vac,9-heladio(P 06:42: lar, [place] F) 03 ONCE-PRIOR Medical (GARDASIL-9 TO Branch ) syringe DISCHARGE, 0.5 mL 1 dose, Starting 04/23/20 at 0142, Until Discontinu ed, Routine, Give vaccine prior to discharge amnioinfusi 2020-0 2020- No 1000mL at 750 U nivers on IV 04-23 09-16 mL/hr, ity of infusion 04:30: 04:16 Intrauteri [place] via GRAVITY 00 :00 ne, ONCE, Med ical 0.9 NaCL 1 dose, Branch 1,000 mL 04/22/20 at 2330, KIMMY
In fuse via gravity 750 ml over 1 hour.&nbsp ; Once 750 mL has been infused, the infusion may be dicsontinu ed or decreased to 100 mL/hr until the liter is complete.& nbsp;&nbsp ;Notify Assistant Manager Bilingual if uterine resting tone exceeds 25 mmHg at any time during the amnioinfus ion. Obst etrics (KALYAN) Aminoinfus ion Orders
lactated 2020-0 2020- No 500mL at 999 Unive rs ringers IV 04-22 mL/hr, 500 it y of infusion 22:00: 21:52 mL, IV [place] 500 mL 00 :00 Infusion, Medical ONCE, 1 Branch dose, 04/22/20 at 1700, Routine D5W-LR IV 2020-0 2020- No 1000mL at 125 Uni vers infusion 04-22 mL/hr, IV ity o f 1,000 mL 21:00: 06:42 Infusion, [place] 00 :07 CONTINUOUS Medical , Starting Branch 04/22/20 at 1600, Until 04/23/20 at 0142, Routine sodium 2019-0 2020- No 30mL 30 mL, Univers citrate-cit 04-22 Oral, ity of sachin acid 20:49: 21:53 PRE-PROCED [place] (BICITRA) 38 :00 URE ONCE, Medic al 500-334 1 dose, Branch mg/5 mL Starting solution 30 Tue mL 04/22/20 at 1549, Until Discontinu ed, Routine, Surgery/Pr ocedure ferrous 2020-0 Yes [id number] 325mg Take 1 [place] sulfate 325 9-02 tablet by ity of mg (65 mg 00:00: mouth 2 [place] iron) 00 (two) Medical tablet times Branch daily. ascorbic 2020-0 Yes [id number] 500mg Take 1 U nivers acid, 9-02 tablet by ity of vitamin C, 00:00: mouth 3 [place] 500 mg 00 (three) Medical tablet times Branch daily. ferrous 2020-0 Yes [id number] 325mg Take 1 [place] sulfate 325 9-02 tablet by ity of mg (65 mg 00:00: mouth 2 [place] iron) 00 (two) Medical tablet times Branch daily. ascorbic 2020-0 Yes [id number] 500mg Take 1 U nivers acid, 9-02 tablet by ity of vitamin C, 00:00: mouth 3 [place] 500 mg 00 (three) Medical tablet times Branch daily. ferrous 2020-0 Yes [id number] 325mg Take 1 [place] sulfate 325 9-02 tablet by ity of mg (65 mg 00:00: mouth 2 [place] iron) 00 (two) Medical tablet times Branch daily. ascorbic 2020-0 Yes [id number] 500mg Take 1 U nivers acid, 9-02 tablet by ity of vitamin C, 00:00: mouth 3 [place] 500 mg 00 (three) Medical tablet times Branch daily. ferrous 2020-0 Yes [id number] 325mg Take 1 [place] sulfate 325 9-02 tablet by ity of mg (65 mg 00:00: mouth 2 [place] iron) 00 (two) Medical tablet times Branch daily. ascorbic 2020-0 Yes [id number] 500mg Take 1 U nivers acid, 9-02 tablet by ity of vitamin C, 00:00: mouth 3 [place] 500 mg 00 (three) Medical tablet times Branch daily. ferrous 2020-0 Yes [id number] 325mg Take 1 [place] sulfate 325 9-02 tablet by ity of mg (65 mg 00:00: mouth 2 [place] iron) 00 (two) Medical tablet times Branch daily. ascorbic 2020-0 Yes [id number] 500mg Take 1 U nivers acid, 9-02 tablet by ity of vitamin C, 00:00: mouth 3 [place] 500 mg 00 (three) Medical tablet times Branch daily. ferrous 2020-0 Yes [id number] 325mg Take 1 [place] sulfate 325 9-02 tablet by ity of mg (65 mg 00:00: mouth 2 [place] iron) 00 (two) Medical tablet times Branch daily. ascorbic 2020-0 Yes [id number] 500mg Take 1 U nivers acid, 9-02 tablet by ity of vitamin C, 00:00: mouth 3 [place] 500 mg 00 (three) Medical tablet times Branch daily. ferrous 2020-0 Yes [id number] 325mg Take 1 [place] sulfate 325 9-02 tablet by ity of mg (65 mg 00:00: mouth 2 [place] iron) 00 (two) Medical tablet times Branch daily. ascorbic 2020-0 Yes [id number] 500mg Take 1 U nivers acid, 9-02 tablet by ity of vitamin C, 00:00: mouth 3 [place] 500 mg 00 (three) Medical tablet times Branch daily. ferrous 2020-0 2020- No [id number] 325mg Take 1 U nivers sulfate 325 04-09 tablet by it y of mg (65 mg 00:00: 00:00 mouth 2 [place] iron) 00 :00 (two) Medical tablet times Branch daily. ascorbic 2020-0 2020- No [id number] 500mg Take 1 Univers acid, 04-09 tablet by ity of vitamin C, 00:00: 00:00 mouth 3 [place] 500 mg 00 :00 (three) Medical tablet times Branch daily. ampicillin 2020-0 2020- No [id number] 500mg Take 1 Univers 500 mg 4-29 05-10 capsule by ity of capsule 00:00: 04:59 mouth [place] 00 :00 every 6 Medical (six) Branch hours for 10 days. ampicillin 2020-0 2020- No [id number] 500mg Take 1 Univers 500 mg 4-29 05-10 capsule by ity of capsule 00:00: 04:59 mouth [place] 00 :00 every 6 Medical (six) Branch hours for 10 days. ampicillin 2020-0 2020- No [id number] 500mg Take 1 Univers 500 mg 4-29 05-10 capsule by ity of capsule 00:00: 04:59 mouth [place] 00 :00 every 6 Medical (six) Branch hours for 10 days. ampicillin 2020-0 2020- No [id number] 500mg Take 1 Univers 500 mg 4-29 05-10 capsule by ity of capsule 00:00: 04:59 mouth [place] 00 :00 every 6 Medical (six) Branch hours for 10 days. ampicillin 2020-0 2020- No [id number] 500mg Take 1 Univers 500 mg 4-29 05-10 capsule by ity of capsule 00:00: 04:59 mouth [place] 00 :00 every 6 Medical (six) Branch hours for 10 days. ampicillin 2020-0 2020- No [id number] 500mg Take 1 Univers 500 mg 4-29 05-10 capsule by ity of capsule 00:00: 04:59 mouth [place] 00 :00 every 6 Medical (six) Branch hours for 10 days. ferrous 2020-0 Yes 325mg Take 325 Unive rs sulfate 4-27 mg by ity of (IRON) 325 18:34: mouth 3 [place] mg (65 mg 19 (three) Medical iron) times Branch tablet daily with meals. ferrous 2020-0 Yes 325mg Take 325 Unive rs sulfate 4-27 mg by ity of (IRON) 325 18:34: mouth 3 [place] mg (65 mg 19 (three) Medical iron) times Branch tablet daily with meals. ferrous 2020-0 Yes 325mg Take 325 Unive rs sulfate 4-27 mg by ity of (IRON) 325 18:34: mouth 3 [place] mg (65 mg 19 (three) Medical iron) times Branch tablet daily with meals. ferrous 2020-0 Yes 325mg Take 325 Unive rs sulfate 4-27 mg by ity of (IRON) 325 18:34: mouth 3 [place] mg (65 mg 19 (three) Medical iron) times Branch tablet daily with meals. ferrous 2020-0 Yes 325mg Take 325 Unive rs sulfate 4-27 mg by ity of (IRON) 325 18:34: mouth 3 [place] mg (65 mg 19 (three) Medical iron) times Branch tablet daily with meals. ferrous 2020-0 Yes 325mg Take 325 Unive rs sulfate 4-27 mg by ity of (IRON) 325 18:34: mouth 3 [place] mg (65 mg 19 (three) Medical iron) times Branch tablet daily with meals. ferrous 2020-0 Yes 325mg Take 325 Unive rs sulfate 4-27 mg by ity of (IRON) 325 18:34: mouth 3 [place] mg (65 mg 19 (three) Medical iron) times Branch tablet daily with meals. ferrous 2020-0 Yes 325mg Take 325 Unive rs sulfate 4-27 mg by ity of (IRON) 325 18:34: mouth 3 [place] mg (65 mg 19 (three) Medical iron) times Branch tablet daily with meals. ferrous 2020-0 Yes 325mg Take 325 Unive rs sulfate 4-27 mg by ity of (IRON) 325 18:34: mouth 3 [place] mg (65 mg 19 (three) Medical iron) times Branch tablet daily with meals. ferrous 2020-0 Yes 325mg Take 325 Unive rs sulfate 4-27 mg by ity of (IRON) 325 18:34: mouth 3 [place] mg (65 mg 19 (three) Medical iron) times Branch tablet daily with meals. ferrous 2020-0 Yes 325mg Take 325 Unive rs sulfate 4-27 mg by ity of (IRON) 325 18:34: mouth 3 [place] mg (65 mg 19 (three) Medical iron) times Branch tablet daily with meals. ferrous 2020-0 Yes 325mg Take 325 Unive rs sulfate 4-27 mg by ity of (IRON) 325 18:34: mouth 3 [place] mg (65 mg 19 (three) Medical iron) times Branch tablet daily with meals. ferrous 2020-0 Yes 325mg Take 325 Unive rs sulfate 4-27 mg by ity of (IRON) 325 18:34: mouth 3 [place] mg (65 mg 19 (three) Medical iron) times Branch tablet daily with meals. ferrous 2020-0 Yes 325mg Take 325 Unive rs sulfate 4-27 mg by ity of (IRON) 325 18:34: mouth 3 [place] mg (65 mg 19 (three) Medical iron) times Branch tablet daily with meals. ferrous 2020-0 Yes 325mg Take 325 Unive rs sulfate 4-27 mg by ity of (IRON) 325 18:34: mouth 3 [place] mg (65 mg 19 (three) Medical iron) times Branch tablet daily with meals. ferrous 2020-0 Yes 325mg Take 325 Unive rs sulfate 4-27 mg by ity of (IRON) 325 18:34: mouth 3 [place] mg (65 mg 19 (three) Medical iron) times Branch tablet daily with meals. ferrous 2020-0 Yes 325mg Take 325 Unive rs sulfate 4-27 mg by ity of (IRON) 325 18:34: mouth 3 [place] mg (65 mg 19 (three) Medical iron) times Branch tablet daily with meals. ferrous 2020-0 Yes 325mg Take 325 Unive rs sulfate 4-27 mg by ity of (IRON) 325 18:34: mouth 3 [place] mg (65 mg 19 (three) Medical iron) times Branch tablet daily with meals. ferrous 2020-0 Yes 325mg Take 325 Unive rs sulfate 4-27 mg by ity of (IRON) 325 18:34: mouth 3 [place] mg (65 mg 19 (three) Medical iron) times Branch tablet daily with meals. ferrous 2020-0 Yes 325mg Take 325 Unive rs sulfate 4-27 mg by ity of (IRON) 325 18:34: mouth 3 [place] mg (65 mg 19 (three) Medical iron) times Branch tablet daily with meals. ferrous 2020-0 Yes 325mg Take 325 Unive rs sulfate 4-27 mg by ity of (IRON) 325 18:34: mouth 3 [place] mg (65 mg 19 (three) Medical iron) times Branch tablet daily with meals. ferrous 2020-0 Yes 325mg Take 325 Unive rs sulfate 4-27 mg by ity of (IRON) 325 18:34: mouth 3 [place] mg (65 mg 19 (three) Medical iron) times Branch tablet daily with meals. ferrous 2020-0 Yes 325mg Take 325 Unive rs sulfate 4-27 mg by ity of (IRON) 325 18:34: mouth 3 [place] mg (65 mg 19 (three) Medical iron) times Branch tablet daily with meals. ferrous 2020-0 Yes 325mg Take 325 Unive rs sulfate 4-27 mg by ity of (IRON) 325 18:34: mouth 3 [place] mg (65 mg 19 (three) Medical iron) times Branch tablet daily with meals. ferrous 2020-0 Yes 325mg Take 325 Unive rs sulfate 4-27 mg by ity of (IRON) 325 18:34: mouth 3 [place] mg (65 mg 19 (three) Medical iron) times Branch tablet daily with meals. ferrous 2020-0 Yes 325mg Take 325 Unive rs sulfate 4-27 mg by ity of (IRON) 325 18:34: mouth 3 [place] mg (65 mg 19 (three) Medical iron) times Branch tablet daily with meals. ferrous 2020-0 Yes 325mg Take 325 Unive rs sulfate 4-27 mg by ity of (IRON) 325 18:34: mouth 3 [place] mg (65 mg 19 (three) Medical iron) times Branch tablet daily with meals. ferrous 2020-0 Yes 325mg Take 325 Unive rs sulfate 4-27 mg by ity of (IRON) 325 18:34: mouth 3 [place] mg (65 mg 19 (three) Medical iron) times Branch tablet daily with meals. ferrous 2020-0 Yes 325mg Take 325 Unive rs sulfate 4-27 mg by ity of (IRON) 325 18:34: mouth 3 [place] mg (65 mg 19 (three) Medical iron) times Branch tablet daily with meals. ferrous 2020-0 Yes 325mg Take 325 Unive rs sulfate 4-27 mg by ity of (IRON) 325 18:34: mouth 3 [place] mg (65 mg 19 (three) Medical iron) times Branch tablet daily with meals. ferrous 2020-0 Yes 325mg Take 325 Unive rs sulfate 4-27 mg by ity of (IRON) 325 18:34: mouth 3 [place] mg (65 mg 19 (three) Medical iron) times Branch tablet daily with meals. ferrous 2020-0 Yes 325mg Take 325 Unive rs sulfate 4-27 mg by ity of (IRON) 325 18:34: mouth 3 [place] mg (65 mg 19 (three) Medical iron) times Branch tablet daily with meals. ferrous 2020-0 Yes 325mg Take 325 Unive rs sulfate 4-27 mg by ity of (IRON) 325 18:34: mouth 3 [place] mg (65 mg 19 (three) Medical iron) times Branch tablet daily with meals. ferrous 2020-0 Yes 325mg Take 325 Unive rs sulfate 4-27 mg by ity of (IRON) 325 18:34: mouth 3 [place] mg (65 mg 19 (three) Medical iron) times Branch tablet daily with meals. ferrous 2020-0 Yes 325mg Take 325 Unive rs sulfate 4-27 mg by ity of (IRON) 325 18:34: mouth 3 [place] mg (65 mg 19 (three) Medical iron) times Branch tablet daily with meals. ferrous 2020-0 Yes 325mg Take 325 Unive rs sulfate 4-27 mg by ity of (IRON) 325 18:34: mouth 3 [place] mg (65 mg 19 (three) Medical iron) times Branch tablet daily with meals. ferrous 2020-0 Yes 325mg Take 325 Unive rs sulfate 4-27 mg by ity of (IRON) 325 18:34: mouth 3 [place] mg (65 mg 19 (three) Medical iron) times Branch tablet daily with meals. ferrous 2020-0 Yes 325mg Take 325 Unive rs sulfate 4-27 mg by ity of (IRON) 325 18:34: mouth 3 [place] mg (65 mg 19 (three) Medical iron) times Branch tablet daily with meals. 2020-0 Yes [id number] 1{packe Take 1 Univers vit 4-27 t} Packet by ity of 33-iron-fol 00:00: mouth [place] ic-dha 00 daily. Medical (SELECT-OB Branch + DHA) 29 mg iron-1 mg -250 mg combo pack 2020-0 Yes [id number] 1{packe Take 1 Univers vit 4-27 t} Packet by ity of 33-iron-fol 00:00: mouth [place] ic-dha 00 daily. Medical (SELECT-OB Branch + DHA) 29 mg iron-1 mg -250 mg combo pack 2020-0 Yes [id number] 1{packe Take 1 Univers vit 4-27 t} Packet by ity of 33-iron-fol 00:00: mouth [place] ic-dha 00 daily. Medical (SELECT-OB Branch + DHA) 29 mg iron-1 mg -250 mg combo pack 2020-0 Yes [id number] 1{packe Take 1 Univers vit 4-27 t} Packet by ity of 33-iron-fol 00:00: mouth [place] ic-dha 00 daily. Medical (SELECT-OB Branch + DHA) 29 mg iron-1 mg -250 mg combo pack 2020-0 Yes [id number] 1{packe Take 1 Univers vit 4-27 t} Packet by ity of 33-iron-fol 00:00: mouth [place] ic-dha 00 daily. Medical (SELECT-OB Branch + DHA) 29 mg iron-1 mg -250 mg combo pack 2020-0 Yes [id number] 1{packe Take 1 Univers vit 4-27 t} Packet by ity of 33-iron-fol 00:00: mouth [place] ic-dha 00 daily. Medical (SELECT-OB Branch + DHA) 29 mg iron-1 mg -250 mg combo pack 2020-0 Yes [id number] 1{packe Take 1 Univers vit 4-27 t} Packet by ity of 33-iron-fol 00:00: mouth [place] ic-dha 00 daily. Medical (SELECT-OB Branch + DHA) 29 mg iron-1 mg -250 mg combo pack 2020-0 Yes [id number] 1{packe Take 1 Univers vit 4-27 t} Packet by ity of 33-iron-fol 00:00: mouth [place] ic-dha 00 daily. Medical (SELECT-OB Branch + DHA) 29 mg iron-1 mg -250 mg combo pack 2020-0 Yes [id number] 1{packe Take 1 Univers vit 4-27 t} Packet by ity of 33-iron-fol 00:00: mouth [place] ic-dha 00 daily. Medical (SELECT-OB Branch + DHA) 29 mg iron-1 mg -250 mg combo pack 2020-0 Yes [id number] 1{packe Take 1 Univers vit 4-27 t} Packet by ity of 33-iron-fol 00:00: mouth [place] ic-dha 00 daily. Medical (SELECT-OB Branch + DHA) 29 mg iron-1 mg -250 mg combo pack 2020-0 Yes [id number] 1{packe Take 1 Univers vit 4-27 t} Packet by ity of 33-iron-fol 00:00: mouth [place] ic-dha 00 daily. Medical (SELECT-OB Branch + DHA) 29 mg iron-1 mg -250 mg combo pack 2020-0 Yes [id number] 1{packe Take 1 [facility] vit 4-27 t} Packet by ity of 33-iron-fol 00:00: mouth [place] ic-dha 00 daily. [facility] ([facility] + [facility]) 29 mg iron-1 mg -250 mg combo pack 2020-0 Yes [id number] 1{packe Take 1 [facility] vit 4-27 t} Packet by ity of 33-iron-fol 00:00: mouth [place] ic-dha 00 daily. [facility] ([facility] + [facility]) 29 mg iron-1 mg -250 mg combo pack 2020-0 Yes [id number] 1{packe Take 1 [facility] vit 4-27 t} Packet by ity of 33-iron-fol 00:00: mouth [place] ic-dha 00 daily. [facility] ([facility] + DHA) 29 mg iron-1 mg -250 mg combo pack 2020-0 Yes [id number] 1{packe Take 1 [facility] vit 4-27 t} Packet by ity of 33-iron-fol 00:00: mouth [place] ic-dha 00 daily. [facility] ([facility] + D[facility]) 29 mg iron-1 mg -250 mg combo pack 2020-0 Yes [id number] 1{packe Take 1 [facility] vit 4-27 t} Packet by ity of 33-iron-fol 00:00: mouth [place] ic-dha 00 daily. [facility] ([facility] + DHA) 29 mg iron-1 mg -250 mg combo pack 2020-0 Yes [id number] 1{packe Take 1 [facility] vit 4-27 t} Packet by ity of 33-iron-fol 00:00: mouth [place] ic-dha 00 daily. [facility] ([facility] + DHA) 29 mg iron-1 mg -250 mg combo pack 2020-0 Yes [id number] 1{packe Take 1 [facility] vit 4-27 t} Packet by ity of 33-iron-fol 00:00: mouth [place] ic-dha 00 daily. [facility] ([facility] + DHA) 29 mg iron-1 mg -250 mg combo pack 2020-0 Yes [id number] 1{packe Take 1 [facility] vit 4-27 t} Packet by ity of 33-iron-fol 00:00: mouth [place] ic-dha 00 daily. [facility] ([facility] + D[facility]) 29 mg iron-1 mg -250 mg combo pack 2020-0 Yes [id number] 1{packe Take 1 [facility] vit 4-27 t} Packet by ity of 33-iron-fol 00:00: mouth [place] ic-dha 00 daily. [facility] ([facility] + DHA) 29 mg iron-1 mg -250 mg combo pack 2020-0 Yes [id number] 1{packe Take 1 [facility] vit 4-27 t} Packet by ity of 33-iron-fol 00:00: mouth [place] ic-dha 00 daily. [facility] ([facility] + D[facility]) 29 mg iron-1 mg -250 mg combo pack 2020-0 Yes [id number] 1{packe Take 1 [facility] vit 4-27 t} Packet by ity of 33-iron-fol 00:00: mouth [place] ic-dha 00 daily. [facility] ([facility] + D[facility]) 29 mg iron-1 mg -250 mg combo pack 2020-0 Yes [id number] 1{packe Take 1 [facility] vit 4-27 t} Packet by ity of 33-iron-fol 00:00: mouth [place] ic-dha 00 daily. [facility] ([facility] + DHA) 29 mg iron-1 mg -250 mg combo pack 2020-0 Yes [id number] 1{packe Take 1 [facility] vit 4-27 t} Packet by ity of 33-iron-fol 00:00: mouth [place] ic-dha 00 daily. [facility] ([facility] + D[facility]) 29 mg iron-1 mg -250 mg combo pack 2020-0 Yes [id number] 1{packe Take 1 [facility] vit 4-27 t} Packet by ity of 33-iron-fol 00:00: mouth [place] ic-dha 00 daily. [facility] ([facility] + D[facility]) 29 mg iron-1 mg -250 mg combo pack 2020-0 Yes [id number] 1{packe Take 1 [facility] vit 4-27 t} Packet by ity of 33-iron-fol 00:00: mouth [place] ic-dha 00 daily. [facility] ([facility] + D[facility]) 29 mg iron-1 mg -250 mg combo pack 2020-0 Yes [id number] 1{packe Take 1 [facility] vit 4-27 t} Packet by ity of 33-iron-fol 00:00: mouth [place] ic-dha 00 daily. [facility] ([facility] + D[facility]) 29 mg iron-1 mg -250 mg combo pack 2020-0 Yes [id number] 1{packe Take 1 [facility] vit 4-27 t} Packet by ity of 33-iron-fol 00:00: mouth [place] ic-dha 00 daily. Medical ([facility] + DHA) 29 mg iron-1 mg -250 mg combo pack 2020-0 Yes [id number] 1{packe Take 1 [facility] vit 4-27 t} Packet by ity of 33-iron-fol 00:00: mouth [place] ic-dha 00 daily. Medical ([facility] + DHA) 29 mg iron-1 mg -250 mg combo pack 2020-0 Yes [id number] 1{packe Take 1 [facility] vit 4-27 t} Packet by ity of 33-iron-fol 00:00: mouth [place] ic-dha 00 daily. Medical ([facility] + DHA) 29 mg iron-1 mg -250 mg combo pack 2020-0 Yes [id number] 1{packe Take 1 [facility] vit 4-27 t} Packet by ity of 33-iron-fol 00:00: mouth [place] ic-dha 00 daily. Medical ([facility] + DHA) 29 mg iron-1 mg -250 mg combo pack 2020-0 Yes [id number] 1{packe Take 1 [facility] vit 4-27 t} Packet by ity of 33-iron-fol 00:00: mouth [place] ic-dha 00 daily. Medical ([facility] + DHA) 29 mg iron-1 mg -250 mg combo pack 2020-0 Yes [id number] 1{packe Take 1 [facility] vit 4-27 t} Packet by ity of 33-iron-fol 00:00: mouth [place] ic-dha 00 daily. Medical ([facility] + DHA) 29 mg iron-1 mg -250 mg combo pack 2020-0 Yes [id number] 1{packe Take 1 [facility] vit 4-27 t} Packet by ity of 33-iron-fol 00:00: mouth [place] ic-dha 00 daily. Medical ([facility] + DHA) 29 mg iron-1 mg -250 mg combo pack 2020-0 Yes [id number] 1{packe Take 1 [facility] vit 4-27 t} Packet by ity of 33-iron-fol 00:00: mouth [place] ic-dha 00 daily. Medical ([facility] + DHA) 29 mg iron-1 mg -250 mg combo pack 2020-0 Yes [id number] 1{packe Take 1 [facility] vit 4-27 t} Packet by ity of 33-iron-fol 00:00: mouth [place] ic-dha 00 daily. [facility] 29 mg iron-1 mg -250 mg combo pack 2020-0 Yes [id number] 1{packe Take 1 [facility] vit 4-27 t} Packet by ity of 33-iron-fol 00:00: mouth [place] ic-dha 00 daily. [facility] 29 mg iron-1 mg -250 mg combo pack 2020-0 Yes [id number] 1{packe Take 1 [facility] vit 4-27 t} Packet by ity of 33-iron-fol 00:00: mouth [place] ic-dha 00 daily. [facility] 29 mg iron-1 mg -250 mg combo pack 2019-0 2020- No [id number] 1{packe Take 1 [facility] vit 4-27 09-17 t} Packet by ity [facility] 33-iron-fol 00:[place] [facility]. [facility] 29 mg iron-1 mg -250 mg combo pack Iron, Cbn & 2019-0 Yes [id number] 1{tbl} Take 1 [facility] Gluc-FA-B12 6-03 tablet by ity of -C-DSS 00:00: mouth [place] (FERRALET 00 daily. Medical 90 Branch DUAL-IRON DELIVERY) 90-1-12-50 mg-mg-mcg-m g per tablet Iron, Cbn & 2019-0 Yes [id number] 1{tbl} Take 1 [facility] Gluc-FA-B12 6-03 tablet by ity of -C-DSS 00:00: mouth [place] (FERRALET [address] DUAL-IRON DELIVERY) 90-1-12-50 mg-mg-mcg-m g per tablet Iron, Cbn & 2019-0 Yes [id number] 1{tbl} Take 1 [facility] Gluc-FA-B12 6-03 tablet by ity of -C-DSS 00:00: mouth [place] (FERRALET [address] DUAL-IRON DELIVERY) 90-1-12-50 mg-mg-mcg-m g per tablet Iron, Cbn & 2019-0 Yes [id number] 1{tbl} Take 1 [facility] Gluc-FA-B12 6-03 tablet by ity of -C-DSS 00:00: mouth [place] (FERRALET [address] DUAL-IRON DELIVERY) 90-1-12-50 mg-mg-mcg-m g per tablet Iron, Cbn & 2019-0 Yes [id number] 1{tbl} Take 1 [facility] Gluc-FA-B12 6-03 tablet by ity of -C-DSS 00:00: mouth [place] (FERRALET [address] DUAL-IRON DELIVERY) 90-1-12-50 mg-mg-mcg-m g per tablet Iron, Cbn & 2019-0 Yes [id number] 1{tbl} Take 1 [facility] Gluc-FA-B12 6-03 tablet by ity of -C-DSS 00:00: mouth [place] (FERRALET [address] DUAL-IRON DELIVERY) 90-1-12-50 mg-mg-mcg-m g per tablet Iron, Cbn & 2019-0 Yes [id number] 1{tbl} Take 1 [facility] Gluc-FA-B12 6-03 tablet by ity of -C-DSS 00:00: mouth [place] (FERR[place]ET [address] DUAL-IRON DELIVERY) 90-1-12-50 mg-mg-mcg-m g per tablet Iron, Cbn & 2019-0 Yes [id number] 1{tbl} Take 1 [facility] Gluc-FA-B12 6-03 tablet by ity of -C-DSS 00:00: mouth [place] (FERRALET 00 daily. Medical 90 Branch DUAL-IRON DELIVERY) 90-1-12-50 mg-mg-mcg-m g per tablet Iron, Cbn & 2020- No [id number] 1{tbl} Take 1 [facility] Gluc-FA-B12 6-10 09-27 tablet by it y of -C-DSS 00:00: 00:00 mouth [place] (FERRALET 00 :[address] DUAL-IRON DELIVERY) 90-1-12-50 mg-mg-mcg-m g per tablet Iron, Cbn & 2020- No [id number] 1{tbl} Take 1 [facility] Gluc-FA-B12 6-10 09-27 tablet by it y of -C-DSS 00:00: 00:00 mouth [place] (FERRALET 00 :[address] DUAL-IRON DELIVERY) 90-1-12-50 mg-mg-mcg-m g per tablet acetaminoph Yes [id number] 1{capsu Take 1 Univers en-caff-but 5-31 le} capsule by it y of albital 00:00: mouth [place] (ESGIC) per 00 every 4 Medic al capsule (four) Branch hours as needed for Headache. acetaminoph Yes [id number] 1{capsu Take 1 [facility] en-caff-but 5-31 le} capsule by it y of albital 00:00: mouth [place] (ESGIC) per 00 every 4 Medic al capsule (four) Branch hours as needed for Headache. acetaminoph Yes [id number] 1{capsu Take 1 [facility] en-caff-but 5-31 le} capsule by it y of albital 00:00: mouth [place] (ESGIC) per 00 every 4 Medic al capsule (four) Branch hours as needed for Headache. acetaminoph Yes [id number] 1{capsu Take 1 [facility] en-caff-but 5-31 le} capsule by it y of albital 00:00: mouth [place] (ESGIC) per 00 every 4 Medic al capsule (four) Branch hours as needed for Headache. acetaminoph Yes [id number] 1{capsu Take 1 [facility] en-caff-but 5-31 le} capsule by it y of albital 00:00: mouth [place] (ESGIC) per 00 every 4 Medic al capsule (four) Branch hours as needed for Headache. acetaminoph Yes [id number] 1{capsu Take 1 [facility] en-caff-but 5-31 le} capsule by it y of albital 00:00: mouth [place] (ESGIC) per 00 every 4 Medic al capsule (four) Branch hours as needed for Headache. acetaminoph Yes [id number] 1{capsu Take 1 [facility] en-caff-but 5-31 le} capsule by it y of albital 00:00: mouth [place] (ESGIC) per 00 every 4 Medic al capsule (four) Branch hours as needed for Headache. acetaminoph Yes [id number] 1{capsu Take 1 [facility] en-caff-but 5-31 le} capsule by it y of albital 00:00: mouth [place] (ESGIC) per 00 every 4 Medic al capsule (four) Branch hours as needed for Headache. acetaminoph 2020- No [id number] 1{capsu Take 1 [facility] en-caff-but 5-31 04-27 le} capsule by i ty of albital 00:00: 00:00 mouth [place] (ESGIC) per 00 :00 every 4 Medic al capsule (four) Branch hours as needed for Headache. acetaminoph 2020- No [id number] 1{capsu Take 1 [facility] en-caff-but 5-31 04-27 le} capsule by i ty of albital 00:00: 00:00 mouth [place] (ESGIC) per 00 :00 every 4 Medic al capsule (four) Branch hours as needed for Headache. Yes [id number] 1{packe Take 1 [facility] vit 1-29 t} Packet by ity of 33-iron-fol 00:00: mouth [place] ic-dha 00 daily. Medical ([facility] + DHA) 29 mg iron-1 mg -250 mg combo pack Yes [id number] 1{packe Take 1 [facility] vit 1-29 t} Packet by ity of 33-iron-fol 00:00: mouth [place] ic-dha 00 daily. Medical ([facility] + DHA) 29 mg iron-1 mg -250 mg combo pack Yes [id number] 1{packe Take 1 [facility] vit 1-29 t} Packet by ity of 33-iron-fol 00:00: mouth [place] ic-dha 00 daily. Medical ([facility] + DHA) 29 mg iron-1 mg -250 mg combo pack Yes [id number] 1{packe Take 1 [facility] vit 1-29 t} Packet by ity of 33-iron-fol 00:00: mouth [place] ic-dha 00 daily. Medical ([facility] + DHA) 29 mg iron-1 mg -250 mg combo pack Yes [id number] 1{packe Take 1 [facility] vit 1-29 t} Packet by ity of 33-iron-fol 00:00: mouth [place] ic-dha 00 daily. Medical ([facility] + DHA) 29 mg iron-1 mg -250 mg combo pack Yes [id number] 1{packe Take 1 [facility] vit 1-29 t} Packet by ity of 33-iron-fol 00:00: mouth [place] ic-dha 00 daily. Medical ([facility] + DHA) 29 mg iron-1 mg -250 mg combo pack Yes [id number] 1{packe Take 1 [facility] vit 1-29 t} Packet by ity of 33-iron-fol 00:00: mouth [place] ic-dha 00 daily. Medical ([facility] + DHA) 29 mg iron-1 mg -250 mg combo pack Yes [id number] 1{packe Take 1 [facility] vit 1-29 t} Packet by ity of 33-iron-fol 00:00: mouth [place] ic-dha 00 daily. Medical ([facility] + DHA) 29 mg iron-1 mg -250 mg combo pack 2020- No [id number] 1{packe Take 1 [facility] vit 1-29 04-27 t} Packet by ity of 33-iron-fol 00:00: 00:[place] [facility] [place] :00 daily. [facility] ([facility] + DHA) 29 mg iron-1 mg -250 mg combo pack 2020- No [id number] 1{packe Take 1 [facility] vit 1-29 04-27 t} Packet by ity of 33-iron-fol 00:00: 00:[place] [facility] [place] :00 daily. [facility] ([facility] + DHA) 29 mg iron-1 mg -250 mg combo pack Immunizations Ordered Filled Immunization Date Status Comments [facility] e Immunization Name Name TDAP 2020-02-18 Completed [facility] of 00:00:00 [place] [facility] TDAP 2020-02-18 Completed [facility] of 00:00:00 [place] [facility] TDAP 2020-02-18 Completed [facility] of 00:00:00 [place] [facility] TDAP 2020-02-18 Completed [facility] of 00:00:00 [place] [facility] TDAP 2020-02-18 Completed [facility] of 00:00:00 [place] [facility] TDAP 2020-02-18 Completed [facility] of 00:00:00 [place] [facility] TDAP 2020-02-18 Completed [facility] of 00:00:00 [place] [facility] TDAP 2020-02-18 Completed [facility] of 00:00:00 [facility] TDAP 2020-02-18 Completed [facility] of 00:00:00 [place] [facility] TDAP 2020-02-18 Completed [facility] of 00:00:00 [place] [facility] TDAP 2020-02-18 Completed [facility] of 00:00:00 [place] [facility] TDAP 2020-02-18 Completed [facility] of 00:00:00 [facility] TDAP 2020-02-18 Completed [facility] of 00:00:00 [facility] TDAP 2020-02-18 Completed [facility] of 00:00:00 [facility] TDAP 2020-02-18 Completed [facility] of 00:00:00 [facility] TDAP 2020-02-18 Completed [facility] of 00:00:00 [place] [facility] TDAP 2020-02-18 Completed [facility] of 00:00:00 [facility] TDAP 2020-02-18 Completed [facility] of 00:00:00 [place] [facility] TDAP 2020-02-18 Completed [facility] of 00:00:00 [place] [facility] TDAP 2020-02-18 Completed [facility] of 00:00:00 [place] [facility] TDAP 2020-02-18 Completed [facility] of 00:00:00 [place] [facility] TDAP 2020-02-18 Completed [facility] of 00:00:00 [place] [facility] TDAP 2020-02-18 Completed [facility] of 00:00:00 [place] [facility] TDAP 2020-02-18 Completed University of 00:00:00 [facility] Tdap 2019-01-05 Completed University of 00:00:00 [facility] Tdap 2019-01-05 Completed University of 00:00:00 [facility] Tdap 2019-01-05 Completed University of 00:00:00 [facility] Tdap 2019-01-05 Completed University of 00:00:00 [facility] Tdap 2019-01-05 Completed University of 00:00:00 [facility] Tdap 2019-01-05 Completed [facility] of 00:00:00 [facility] Tdap 2019-01-05 Completed [facility] of 00:00:00 [facility] Tdap 2019-01-05 Completed [facility] of 00:00:00 [place] [facility] Tdap 2019-01-05 Completed University of 00:00:00 [facility] Tdap 2019-01-05 Completed [facility] of 00:00:00 [facility] Tdap 2019-01-05 Completed [facility] of 00:00:00 [facility] Tdap 2019-01-05 Completed University of 00:00:00 [facility] Tdap 2019-01-05 Completed University of 00:00:00 [place] [facility] Tdap 2019-01-05 Completed University of 00:00:00 [facility] Tdap 2019-01-05 Completed University of 00:00:00 [facility] Tdap 2019-01-05 Completed University of 00:00:00 [facility] TDAP 2019-01-05 Completed University of 00:00:00 [facility] TDAP 2019-01-05 Completed University of 00:00:00 [facility] TDAP 2019-01-05 Completed [facility] of 00:00:00 [facility] TDAP 2019-01-05 Completed [facility] of 00:00:00 [facility] TDAP 2019-01-05 Completed University of 00:00:00 [facility] Tdap 2019-01-05 Completed University of 00:00:00 [facility] TDAP 2019-01-05 Completed University of 00:00:00 [facility] TDAP 2019-01-05 Completed University of 00:00:00 [facility] TDAP 2019-01-05 Completed University of 00:00:00 [facility] TDAP 2019-01-05 Completed [facility] of 00:00:00 [facility] TDAP 2019-01-05 Completed University of 00:00:00 [facility] TDAP 2019-01-05 Completed [facility] of 00:00:00 [facility] TDAP 2019-01-05 Completed University of 00:00:00 [facility] Tdap 2019-01-05 Completed University of 00:00:00 [place] [facility] TDAP 2019-01-05 Completed University of 00:00:00 [place] [facility] TDAP 2019-01-05 Completed University of 00:00:00 [place] [facility] TDAP 2019-01-05 Completed University of 00:00:00 [place] [facility] TDAP 2019-01-05 Completed University of 00:00:00 [place] [facility] TDAP 2019-01-05 Completed University of 00:00:00 [place] [facility] TDAP 2019-01-05 Completed University of 00:00:00 [facility] TDAP 2019-01-05 Completed [facility] of 00:00:00 [place] [facility] TDAP 2019-01-05 Completed [facility] of 00:00:00 [place] [facility] TDAP 2019-01-05 Completed [facility] of 00:00:00 [place] [facility] TDAP 2019-01-05 Completed [facility] of 00:00:00 [place] [facility] TDAP 2019-01-05 Completed [facility] of 00:00:00 [facility] TDAP 2019-01-05 Completed University of 00:00:00 [facility] Tdap 2019-01-05 Completed University of 00:00:00 [facility] TDAP 2019-01-05 Completed [facility] of 00:00:00 [facility] TDAP 2019-01-05 Completed University of 00:00:00 [facility] Tdap 2019-01-05 Completed University of 00:00:00 [facility] Tdap 2019-01-05 Completed [facility] of 00:00:00 [facility] Tdap 2019-01-05 Completed University of 00:00:00 [facility] Tdap 2017-12-14 Completed University of 00:00:00 [facility] Tdap 2017-12-14 Completed University of 00:00:00 [facility] Tdap 2017-12-14 Completed University of 00:00:00 [facility] Tdap 2017-12-14 Completed University of 00:00:00 [facility] Tdap 2017-12-14 Completed University of 00:00:00 [facility] Tdap 2017-12-14 Completed University of 00:00:00 [facility] Tdap 2017-12-14 Completed [facility] of 00:00:00 [facility] Tdap 2017-12-14 Completed University of 00:00:00 [facility] Tdap 2017-12-14 Completed [facility] of 00:00:00 [facility] Tdap 2017-12-14 Completed [facility] of 00:00:00 [facility] Tdap 2017-12-14 Completed [facility] of 00:00:00 [facility] Tdap 2017-12-14 Completed University of 00:00:00 [facility] Tdap 2017-12-14 Completed University of 00:00:00 [place] [facility] Tdap 2017-12-14 Completed University of 00:00:00 [facility] Tdap 2017-12-14 Completed University of 00:00:00 [facility] Tdap 2017-12-14 Completed University of 00:00:00 [facility] Tdap 2017-12-14 Completed University of 00:00:00 [facility] Tdap 2017-12-14 Completed University of 00:00:00 [facility] TDAP 2017-12-14 Completed University of 00:00:00 [facility] TDAP 2017-12-14 Completed [facility] of 00:00:00 [place] [facility] TDAP 2017-12-14 Completed [facility] of 00:00:00 [facility] TDAP 2017-12-14 Completed [facility] of 00:00:00 [facility] Tdap 2017-12-14 Completed [facility] of 00:00:00 [facility] TDAP 2017-12-14 Completed [facility] of 00:00:00 [facility] TDAP 2017-12-14 Completed [facility] of 00:00:00 [facility] TDAP 2017-12-14 Completed [facility] of 00:00:00 [facility] TDAP 2017-12-14 Completed [facility] of 00:00:00 [facility] TDAP 2017-12-14 Completed University of 00:00:00 [facility] TDAP 2017-12-14 Completed University of 00:00:00 [facility] TDAP 2017-12-14 Completed University of 00:00:00 [facility] Tdap 2017-12-14 Completed University of 00:00:00 [facility] TDAP 2017-12-14 Completed University of 00:00:00 [facility] TDAP 2017-12-14 Completed [facility] of 00:00:00 [facility] TDAP 2017-12-14 Completed University of 00:00:00 [facility] TDAP 2017-12-14 Completed [facility] of 00:00:00 [facility] TDAP 2017-12-14 Completed [facility] of 00:00:00 [facility] TDAP 2017-12-14 Completed University of 00:00:00 [facility] TDAP 2017-12-14 Completed [facility] of 00:00:00 [facility] TDAP 2017-12-14 Completed University of 00:00:00 [facility] TDAP 2017-12-14 Completed University of 00:00:00 [facility] TDAP 2017-12-14 Completed University of 00:00:00 [facility] TDAP 2017-12-14 Completed [facility] of 00:00:00 [facility] TDAP 2017-12-14 Completed University of 00:00:00 [facility] TDAP 2017-12-14 Completed University of 00:00:00 [facility] Tdap 2017-12-14 Completed University of 00:00:00 [facility] TDAP 2017-12-14 Completed University of 00:00:00 [facility] TDAP 2017-12-14 Completed University of 00:00:00 [facility] Tdap 2017-12-14 Completed University of 00:00:00 [facility] Tdap 2015-08-08 Completed University of 00:00:00 [facility] Tdap 2015-08-08 Completed University of 00:00:00 [facility] Tdap 2015-08-08 Completed University of 00:00:00 [facility] Tdap 2015-08-08 Completed University of 00:00:00 [facility] Tdap 2015-08-08 Completed University of 00:00:00 [facility] Tdap 2015-08-08 Completed University of 00:00:00 [facility] Tdap 2015-08-08 Completed University of 00:00:00 [facility] Tdap 2015-08-08 Completed University of 00:00:00 [facility] Tdap 2015-08-08 Completed University of 00:00:00 [facility] Tdap 2015-08-08 Completed University of 00:00:00 [facility] Tdap 2015-08-08 Completed University of 00:00:00 [facility] Tdap 2015-08-08 Completed University of 00:00:00 [facility] Tdap 2015-08-08 Completed University of 00:00:00 [facility] Tdap 2015-08-08 Completed University of 00:00:00 [facility] Tdap 2015-08-08 Completed University of 00:00:00 [facility] TDAP 2015-08-08 Completed University of 00:00:00 [facility] TDAP 2015-08-08 Completed University of 00:00:00 [facility] TDAP 2015-08-08 Completed University of 00:00:00 [facility] Tdap 2015-08-08 Completed University of 00:00:00 [facility] TDAP 2015-08-08 Completed University of 00:00:00 [facility] TDAP 2015-08-08 Completed University of 00:00:00 [facility] TDAP 2015-08-08 Completed University of 00:00:00 [facility] TDAP 2015-08-08 Completed University of 00:00:00 [facility] TDAP 2015-08-08 Completed University of 00:00:00 [facility] TDAP 2015-08-08 Completed University of 00:00:00 [facility] TDAP 2015-08-08 Completed University of 00:00:00 [facility] Tdap 2015-08-08 Completed University of 00:00:00 [facility] TDAP 2015-08-08 Completed University of 00:00:00 [facility] TDAP 2015-08-08 Completed University of 00:00:00 [facility] TDAP 2015-08-08 Completed University of 00:00:00 [facility] TDAP 2015-08-08 Completed University of 00:00:00 [facility] TDAP 2015-08-08 Completed University of 00:00:00 [facility] TDAP 2015-08-08 Completed University of 00:00:00 [facility] TDAP 2015-08-08 Completed University of 00:00:00 [facility] TDAP 2015-08-08 Completed University of 00:00:00 [facility] TDAP 2015-08-08 Completed University of 00:00:00 [facility] TDAP 2015-08-08 Completed University of 00:00:00 [facility] TDAP 2015-08-08 Completed University of 00:00:00 [facility] TDAP 2015-08-08 Completed University of 00:00:00 [facility] TDAP 2015-08-08 Completed University of 00:00:00 [facility] Tdap 2015-08-08 Completed University of 00:00:00 [facility] TDAP 2015-08-08 Completed University of 00:00:00 [facility] TDAP 2015-08-08 Completed University of 00:00:00 [facility] TDAP 2015-08-08 Completed University of 00:00:00 [facility] Tdap 2015-08-08 Completed University of 00:00:00 [facility] Tdap 2015-08-08 Completed University of 00:00:00 [facility] Tdap 2015-08-08 Completed University 00:00:00 [facility] Tdap 2015-08-08 Completed University 00:00:00 [facility] Vital Signs Vital Name Observation Time Observation Value Comments Source Systolic blood 2020-04-24 13:59:00 128 mm[Hg] Univer sity of pressure [facility] Diastolic blood 2020-04-24 13:59:00 72 mm[Hg] Unive rsity of pressure [facility] Heart rate 2020-04-24 13:59:00 95 /min [facility]i ty of [facility] Body temperature 2020-04-24 13:59:00 36.83 [place] [facility] ersity of [facility] Respiratory rate 2020-04-24 13:59:00 18 /[facility] Oxygen saturation in 2020-04-24 13:59:00 98 /min [facility] Arterial blood by [place] [facility] [facility] Pulse oximetry Branch Body weight 2020-04-24 12:00:00 89.1 kg [facility] Systolic blood 2020-04-16 18:52:00 133 mm[Hg] Univer sity of pressure [facility] Diastolic blood 2020-04-16 18:52:00 77 mm[Hg] Unive rsity of pressure [facility] Heart rate 2020-04-16 18:52:00 90 /min [facility] Body temperature 2020-04-16 18:52:00 37.06 Breana [facility] ersity of [facility] Respiratory rate 2020-04-16 18:52:00 16 /min Univ ersity [facility] Body height 2020-04-16 18:52:00 167.6 cm [facility] Body weight 2020-04-16 18:52:00 89.132 kg [facility] BMI 2020-04-16 18:52:00 31.72 kg/m2 [facility] Systolic blood 2020-04-08 18:07:00 138 mm[Hg] Univer sity of pressure [facility] Diastolic blood 2020-04-08 18:07:00 76 mm[Hg] Unive rsity of pressure [facility] Heart rate 2020-04-08 18:07:00 94 /min [facility] Body temperature 2020-04-08 18:07:00 36.72 Breana [facility] [place] [facility] Respiratory rate 2020-04-08 18:07:00 16 /min Univ [facility] Body height 2020-04-08 18:07:00 167.6 cm [facility] Body weight 2020-04-08 18:07:00 88.542 kg [facility] BMI 2020-04-08 18:07:00 31.51 kg/m2 [facility] Systolic blood 2020-03-20 19:06:00 138 mm[Hg] [facility] Diastolic blood 2020-03-20 19:06:00 69 mm[Hg] Unive rsity [facility] Heart rate 2020-03-20 19:06:00 96 /min [facility] Body temperature 2020-03-20 19:06:00 36.44 Breana [facility] Respiratory rate 2020-03-20 19:06:00 16 /min [facility] Body height 2020-03-20 19:06:00 167.6 cm [facility] Body weight 2020-03-20 19:06:00 87.227 kg [facility] BMI 2020-03-20 19:06:00 31.04 kg/m2 [facility] Systolic blood 2020-03-06 14:19:00 118 mm[Hg] [facility] Diastolic blood 2020-03-06 14:19:00 69 mm[Hg] [facility]ive [facility] Heart rate 2020-03-06 14:19:00 90 /min [facility] Body temperature 2020-03-06 14:19:00 36.94 Breana [facility] Respiratory rate 2020-03-06 14:19:00 16 /min [facility] Body height 2020-03-06 14:19:00 157.5 cm [facility] Body weight 2020-03-06 14:19:00 84.913 kg [facility] BMI 2020-03-06 14:19:00 34.24 kg/m2 [facility] Systolic blood 2020-02-18 19:36:00 111 mm[Hg] [facility] Diastolic blood 2020-02-18 19:36:00 67 mm[Hg] [facility]ive [facility] Heart rate 2020-02-18 19:36:00 100 /min [facility] Body temperature 2020-02-18 19:36:00 37.17 Breana [facility] Respiratory rate 2020-02-18 19:36:00 16 /min Univ [facility] Body height 2020-02-18 19:36:00 167.6 cm [facility] Body weight 2020-02-18 19:36:00 84.46 kg [facility] BMI 2020-02-18 19:36:00 30.05 kg/m2 [facility] Systolic blood 2020-01-24 17:57:00 125 mm[Hg] [facility] Diastolic blood 2020-01-24 17:57:00 77 mm[Hg] [facility]ive [facility] Heart rate 2020-01-24 17:57:00 84 /min [facility] Body temperature 2020-01-24 17:57:00 36.89 Breana [facility] Respiratory rate 2020-01-24 17:57:00 16 /min Univ [facility] Body height 2020-01-24 17:57:00 167.6 cm [facility] Body weight 2020-01-24 17:57:00 85.078 kg [facility] BMI 2020-01-24 17:57:00 30.27 kg/m2 [facility] Systolic blood 2019-12-24 15:15:00 131 mm[Hg] [facility] Diastolic blood 2019-12-24 15:15:00 70 mm[Hg] [facility]ive [facility] Heart rate 2019-12-24 15:15:00 81 /min [facility] Body temperature 2019-12-24 15:15:00 36.78 Breana [facility] Respiratory rate 2019-12-24 15:15:00 16 /min [facility] Body height 2019-12-24 15:15:00 167.6 cm [facility] Body weight 2019-12-24 15:15:00 79.861 kg [facility] [place] [facility] [place] BMI 2019-12-24 15:15:00 28.42 kg/m2 [facility] Systolic blood 2019-12-03 18:13:00 134 mm[Hg] [facility] Diastolic blood 2019-12-03 18:13:00 65 mm[Hg] Unive rsity of pressure [facility] Heart rate 2019-12-03 18:13:00 86 /min [facility] Body temperature 2019-12-03 18:13:00 36.56 Breana Univ [facility]ity [facility] Respiratory rate 2019-12-03 18:13:00 16 /min Univ [facility] Body height 2019-12-03 18:13:00 165.1 cm [facility] [place] Body weight 2019-12-03 18:13:00 77.367 kg [facility] [place] BMI 2019-12-03 18:13:00 28.38 kg/m2 [facility] Systolic blood 2019-03-12 15:00:00 131 mm[Hg] Univer sity of pressure [facility] Diastolic blood 2019-03-12 15:00:00 76 mm[Hg] Unive rsity of pressure [facility] Heart rate 2019-03-12 15:00:00 99 /min [facility] [place] Body temperature 2019-03-12 15:00:00 36.56 Breana [facility] [place] Respiratory rate 2019-03-12 15:00:00 16 /min Univ [facility] Body height 2019-03-12 15:00:00 167.6 cm [facility] [place] Body weight 2019-03-12 15:00:00 87.091 kg [facility] BMI 2019-03-12 15:00:00 30.99 kg/m2 [facility] Procedures Procedure Date / Time Performing Clinician Source Performed CBC WITH DIFF 2020-04-24 09:44:00 Bri Norris [facility] VENOUS CORD GAS 2020-04-23 04:55:00 Latha Blakely [facility] HEPATITIS B SURFACE 2020-04-22 21:28:00 [facility] ANTIGEN [facility] GALV ONLY - [place] 2020-04-22 21:28:[address] [facility] IGG/IGM [facility] HB ABO GROUPING 2020-04-22 20:53:00 Reddy Latha [facility] RHO (D) IMMUNE GLOBULIN 2020-04-22 20:53:00 Bri Norris [facility] COVID-19 (ID NOW RAPID 2020-04-22 18:37:00 Douglas Shah [facility] TESTING) [facility] NON-STRESS TEST 2020-04-16 19:49:[address] [facility] POCT URINALYSIS 2020-04-16 18:54:00 Shahnaz Franco [facility] POCT URINALYSIS 2020-04-08 00:00:00 Shahnaz Franco [facility] POCT URINALYSIS 2020-03-20 00:00:00 Shahnaz Franco [facility] POCT URINALYSIS 2020-03-06 00:00:00 Shahnaz Franco [facility] TDAP VACCINE, >11 YRS, 2020-02-18 20:02:34 [facility] 2020-02-18 00:00:00 Shahnaz Franco [facility] POCT URINALYSIS 2020-01-24 18:00:00 Shahnaz Franco [facility] POCT URINALYSIS 2019-12-24 15:16:00 Shahnaz Franco [facility] AUTHORIZATION TO RELEASE 2019-12-12 05:01:00 [facility] Name [facility] POCT URINALYSIS 2019-12-03 18:15:00 Shahnaz Franco [facility] POCT TEST 2019-12-03 18:15:00 Shahnaz Franco [facility] AUTHORIZATION FOR 2019-03-15 05:01:00 Doctor Unassigned, No Univ ersity [facility] RELEASE OF PHI Name Medical Branch POCT URINALYSIS W/O 2019-03-12 15:02:00 [facility]IFIC GRAVITY [facility] Encounters Start End Encounter Admission Attending Care Care Encounter Source Date/Time Date/Time Type Type Clinicians Facility Department ID 2021-06-05 Outpatient [facility] [id number] Univers 17:38:11 ity of [facility] 2021-09-02 2021-09-02 Outpatient [facility] [id number] [facility] 00:00:00 00:00:00 2021-08-26 2021-08-26 Outpatient [facility] [id number] [facility] 00:00:00 00:00:00 2021-08-24 2021-08-24 Outpatient [facility] [id number] [facility] 00:00:00 00:00:00 2020-09-26 2020-09-26 Haley Hassan [facility] 1.2.840.114 [id number] Univers 00:00:00 00:00:00 Y HEALTH 350.1.13.[address] [facility] [place] [id number] [facility] 113 Branch 2020-04-22 2020-04-24 [facility] ALEX Shah [id number] [id number] Univers 12:50:00 12:27:00 Encounter Douglas Rayray ESPINOZA 350.1.13.10 ity [facility] 4.2.7.2.686 Andrea as [id number] [facility] 038 Branch 2020-04-19 2020-04-19 Nurse ALEX Magana 1.2.840.114 [id number] Univers 00:00:00 00:00:00 Triage Lila MENDESY 350.1.13.10 it y [facility] 4.2.7.2.686 Andrea as [id number] [facility] 019 Branch 2020-04-16 2020-04-16 Routine Akinsipe, [facility] [id number] [id number] Univers 13:27:07 13:42:07 Carmelita Romero CASEWORKER INTAKE 350.1.13.10 ity of Visit REGIONAL 4.2.7.2.686 Andrea as MATERNAL [id number] [facility] & CHILD [address] [place] [address] 2020-04-16 2020-04-16 Outpatient R JORDENLUIS FERNANDO, [facility] [id number] Univers 11:00:00 11:00:00 CARMELITA ity o [facility] 2020-04-16 2020-04-16 Outpatient R JORDENLUIS FERNANDO, [facility] [id number] Univers 11:00:00 11:00:00 CARMELITA ity o [facility] 2020-04-15 2020-04-15 Outpatient R SALVADOR [facility] [id number] Univers 15:15:00 15:15:00 ADAMNDA ity o [facility] 2020-04-15 2020-04-15 [facility] [facility] [id number] Univers 15:15:00 15:15:00 ADAMNDA luchoyesi o [facility] 2020-04-09 2020-04-09 [facility]phone [facility] [id number] Univers 00:00:00 00:00:00 Roshunda R CASEWORKER INTAKE 350.1.13.10 ity of REGIONAL 4.2.7.2.686 Andrea as MATERNAL [id number] [facility] & [address] 2020-04-08 2020-04-08 [facility] 1.2.840.114 [id number] Univers 12:56:19 13:25:59 Roshunda R CASEWORKER INTAKE 350.1.13.10 ity of Visit REGIONAL 4.2.7.2.686 Andrea as MATERNAL [id number] [facility] & CHILD [address] [place] [address] 2020-04-08 2020-04-08 Outpatient Corinne FRANCO, [facility] [id number] Univers 13:00:00 13:00:00 ADAMNDJoel ityesi o [facility] 2020-04-08 2020-04-08 [facility] [id number] Univers 13:00:00 13:00:00 ROSHUNDA ity o [facility] 2020-04-02 2020-04-02 Outpatient Corinne FRANCO [facility] [id number] Univers 12:45:00 12:45:00 ADAMNDJoel [id number] ity o f [facility] 2020-04-02 2020-04-02 Outpatient Corinne FRANCO [facility] [id number] Univers 12:45:00 12:45:00 ROSMADDYNDA ity o f [facility] 2020-04-01 2020-04-01 Telephone Salvador [facility] [id number] Univers 00:00:00 00:00:00 Roshunda R CASEWORKER INTAKE 350.1.13.10 ity of REGIONAL 4.2.7.2.686 Andrea as MATERNAL [phone] Med ical & CHILD [address] [place] [address] 2020-03-20 2020-03-20 [facility] 1.2.840.114 [id number] Univers 13:46:03 14:46:22 Roshunda R CASEWORKER INTAKE 350.1.13.10 ity of Visit REGIONAL 4.2.7.2.686 Andrea as MATERNAL [id number] Med ical & CHILD [address] [place] [address] 2020-03-20 2020-03-20 Outpatient Corinne FRANCO [facility] [id number] Univers 14:00:00 14:00:00 SHAHNAZ [id number] ity o f [facility] 2020-03-20 2020-03-20 Outpatient Corinne FRANCO [facility] [id number] Univers 14:00:00 14:00:00 ROSHUNDA ity o f [facility] 2020-03-06 2020-03-06 [facility] 1.2.840.114 [id number] Univers 09:06:15 09:39:44 Roshunda R CASEWORKER INTAKE 350.1.13.10 ity of Visit REGIONAL 4.2.7.2.686 Andrea as MATERNAL [id number] [facility] ical & CHILD [address] [place] [address] 2020-03-06 2020-03-06 Outpatient Corinne FRANCO [facility] [id number] Univers 09:15:00 09:15:00 SHAHNAZ ity o f [facility] 2020-03-06 2020-03-06 Outpatient Corinne FRANCO [facility] [id number] Univers 09:15:00 09:15:00 ADAMNDA ityesi o f [facility] 2020-03-03 2020-03-03 Outpatient Corinne FRANCO [facility] [id number] Univers 11:00:00 11:00:00 SHAHNAZ [id number] ityesi o f [facility] 2020-03-03 2020-03-03 Outpatient Corinne FRANCO [facility] [id number] Univers 11:00:00 11:00:00 ADAMNDA ity o [facility] 2020-02-18 2020-02-18 Routine Salvador [facility] 1.2.840.114 [id number] Univers 14:17:11 15:11:36 Shahnaz R CASEWORKER INTAKE 350.1.13.10 ity of Visit REGIONAL 4.2.7.2.686 Andrea as MATERNAL [id number] Med ical & CHILD [address] [place] [address] 2020-02-18 2020-02-18 Outpatient Corinne FRANCO [facility] [id number] Univers 14:15:00 14:15:00 SHAHNAZ [id number] ity o [facility] 2020-02-18 2020-02-18 Outpatient Corinne RFANCO [facility] [id number] Univers 14:15:00 14:15:00 ROSMADDYNDA ityesi o f [facility] 2020-02-14 2020-02-14 Outpatient Corinne FRANCO [facility] [id number] Univers 15:45:00 15:45:00 ADAMNDJoel ity o [facility] 2020-02-14 2020-02-14 Outpatient Corinne FRANCO [facility] [id number] Univers 15:45:00 15:45:00 ADAMNDA ityesi o [facility] 2020-02-07 2020-02-07 Outpatient Corinne FRANCO [facility] [id number] Univers 13:30:00 13:30:00 SHAHNAZ ity o [facility] 2020-02-07 2020-02-07 Outpatient Corinne FRANCO [facility] [id number] Univers 13:30:00 13:30:00 ADAMNDA ity o f [facility] 2020-01-28 2020-01-28 Outpatient R [facility] [id number] Univers 13:15:00 13:15:00 [id number] ity of [facility] 2020-01-28 2020-01-28 Outpatient R SALVADOR [facility] [id number] Univers 13:15:00 13:15:00 ADAMNDA ity o f [facility] 2020-01-24 2020-01-24 [facility]ine [facility] 1.2.840.114 [id number] Univers 12:45:18 13:15:26 Rosmaddynda R CASEWORKER INTAKE 350.1.13.10 ity of Visit REGIONAL 4.2.7.2.686 Andrea as MATERNAL [id number] Med ical & CHILD [address] [place] [address] 2020-01-24 2020-01-24 Outpatient R SALVADOR [facility] [id number] Univers 13:00:00 13:00:00 ADAMNDJoel [id number] ity o f [facility] 2020-01-24 2020-01-24 Outpatient R SALVADOR [facility] [id number] Univers 13:00:00 13:00:00 ADAMNDA ity o [facility] 2020-01-21 2020-01-21 Outpatient R SALVADOR [facility] [id number] Univers 09:30:00 09:30:00 SHAHNAZ [id number] ity o [facility] 2020-01-21 2020-01-21 Outpatient R SALVADOR [facility] [id number] Univers 09:30:00 09:30:00 ADAMNDA ity o [facility] 2020-01-21 2020-01-21 Telephone Salvador [facility] [id number] Univers 00:00:00 00:00:00 Rosmaddynda R CASEWORKER INTAKE 350.1.13.10 ity of REGIONAL 4.2.7.2.686 Andrea as MATERNAL [id number] [facility] ical & CHILD [address] [place] [address] 2020-01-01 2020-01-01 Outpatient R SALVADOR [facility] [id number] Univers 12:45:00 12:45:00 AIDENJoel [id number] ity o f [facility] 2020-01-01 2020-01-01 [facility] [id number] Univers 12:45:00 12:45:00 ADAMNDA ity o f [facility] 2019-12-24 2019-12-24 Routine [facility] 1.2.840.114 [id number] Univers 10:07:46 10:43:21 Rosmaddynda R CASEWORKER INTAKE 350.1.13.10 ity of Visit [facility] 4.2.7.2.686 Andrea as MATERNAL [id number] Med ical & CHILD [address] [place] [address] 2019-12-24 2019-12-24 [address] [facility] [facility] [id number] Univers 10:15:00 10:15:00 ADAMFROYLAN [id number] ity o [facility] 2019-12-24 2019-12-24 [address] [facility] [facility] [id number] Univers 10:15:00 10:15:00 SHAHNAZ yepezy o [facility] 2019-12-20 2019-12-20 Telephone [facility] [id number] Univers 00:00:00 00:00:00 Adamnda R CASEWORKER INTAKE 350.1.13.10 ity of [facility] 4.2.7.2.686 Andrea as MATERNAL [id number] [facility] & CHILD [address] [place] [address] 2019-12-12 2019-12-12 Abstract [facility] 1.2.840.114 [id number] Univers 00:00:00 00:00:00 Adamnda R CASEWORKER INTAKE 350.1.13.10 ity of [facility] 4.2.7.2.686 Andrea as MATERNAL [id number] [facility] & CHILD [address] [place] [address] 2019-12-12 2019-12-12 Orders Doctor JOHNSON 1.2.840.114 [id number] Univers 00:00:00 00:00:00 Only Unassigned, ALEXIS 350.1.13.10 ity of [place] [facility] 4.2.7.2.686 Andrea as [id number] [address] 2019-12-12 2019-12-12 Abstract Salvador [facility] 1.2.840.114 [id number] Univers 00:00:00 00:00:00 Roshunda R CASEWORKER INTAKE 350.1.13.10 ity of REGIONAL 4.2.7.2.686 Andrea as MATERNAL [id number] [facility] ical & CHILD [address] [place] [address] 2019-12-11 2019-12-11 Regional Account Director 3, [facility] Room [facility] 1 .2.840.114 [id number] Univers 12:52:18 14:25:09 Visit Douglas Shah Y HEALTH 350.1.13. 10 ity of [place] [id number] [address] 2019-12-11 2019-12-11 Outpatient R [facility] [id number] Univers 13:00:00 13:00:00 ity [facility] 2019-12-11 2019-12-11 Outpatient P [facility] [id number] Univers 13:00:00 13:00:00 ity of [facility] 2019-12-05 2019-12-05 Telephone Salvador [facility] [id number] Univers 00:00:00 00:00:00 Roshunda R CASEWORKER INTAKE 350.1.13.10 ity of REGIONAL 4.2.7.2.686 Andrea as MATERNAL [id number] [facility] & [address] 2019-12-03 2019-12-03 Initial Salvador [facility] 1.2.840.114 [id number] Univers 13:07:51 14:25:47 Roshunda R CASEWORKER INTAKE 350.1.13.10 ity of Visit REGIONAL 4.2.7.2.686 Andrea as MATERNAL [id number] [address] 2019-12-03 2019-12-03 Outpatient R SALVADOR [facility] [id number] Univers 12:45:00 12:45:00 SHAHNAZ [id number] ity o f [facility] 2019-12-03 2019-12-03 [address] [facility] [id number] Univers 12:45:00 12:45:00 ROSHUNDA ity o f [facility] 2019-11-05 2019-11-05 Outpatient R SALVADOR [facility] [id number] Univers 13:00:00 13:00:00 ADAMNDA [id number] ity o f [facility] 2019-11-05 2019-11-05 [facility] [facility] [id number] Univers 13:00:00 13:00:00 ADAMNDA ity o f [facility] 2019-10-31 2019-10-31 [place] [facility] [id number] Univers 00:00:00 00:00:00 Roshunda R CASEWORKER INTAKE 350.1.13.10 ity of [facility] 4.2.7.2.686 Andrea as MATERNAL [id number] [facility] ical & CHILD [address] [place] [address] 2019-08-23 2019-08-23 [place] [facility] [id number] Univers 00:00:00 00:00:00 Rosmaddynda R CASEWORKER INTAKE 350.1.13.10 ity of [facility] 4.2.7.2.686 Andrea as MATERNAL [id number] [facility] & [address] 2019-04-13 2019-04-13 [place] [facility] 1.2.069.154 [id number] Univers 00:00:00 00:00:00 Roshunda R CASEWORKER INTAKE 350.1.13.10 ity of [facility] 4.2.7.2.686 Andrea as MATERNAL [id number] [facility] ical & CHILD [address] [place] [address] 2019-03-15 2019-03-15 Orders Doctor ALEX 1.2.840.114 [id number] Univers 00:00:00 00:00:00 Only Unassigned, ALEXIS 350.1.13.10 [facility] 4.2.7.2.686 Andrea as [id number] [address] 2019-03-12 2019-03-12 Routine [facility] 1.2.840.114 [id number] Univers 09:44:19 10:32:14 Roshunda R CASEWORKER INTAKE 350.1.13.10 ity of Visit REGIONAL 4.2.7.2.686 Andrea as MATERNAL [id number] [facility] & CHILD [address] [place] [address] 2019-03-10 2019-03-10 Nurse ALEX Raya 1.2.840.114 [id number] Univers 00:00:00 00:00:00 Triage Ladonna ESPINOZA 350.1.13.10 i ty of [facility] 4.2.7.2.686 Andrea as [id number] [address] 2019-03-01 2019-03-01 Telephone [facility] [id number] [id number] Univers 00:00:00 00:00:00 Rosnda R CASEWORKER INTAKE 350.1.13.10 ity of REGIONAL 4.2.7.2.686 Andrea as MATERNAL [id number] [facility] & [address] 2019-03-01 2019-03-01 Telephone [facility] [id number] [id number] Univers 00:00:00 00:00:00 [facility] CASEWORKER INTAKE 350.1.13.10 ity of [facility] 4.2.7.2.686 Andrea as MATERNAL [id number] [address] Results Test Description Test Time Test Comments Results Result Comments Source CBC with Differential 2020-04-24 11:09:00 Test Item Value Reference Range Interpretation Comme nts WBC (test code = 6690-2) See_Comment H [A utomated message] The system which ge nerated this result transmit steve reference range: 4.30 - 1 1.10 10*3/?L. The reference r zahra was not used to interpr et this result as normal/abnor mal. RBC (test code = 789-8) See_Comment L [Au tomated message] The system which ge nerated this result transmit steve reference range: 3.93 - 5 .25 10*6/?L. The reference r zahra was not used to interpr et this result as normal/abnor mal. HGB (test code = 718-7) 8.6 g/dL 11.6-15 L HCT (test code = 4544-3) 27.9 % 35.7-45.2 L MCV (test code = 787-2) 73.4 fL 80.6-95.5 L MCH (test code = 785-6) 22.6 pg 25.9-32.8 L MCHC (test code = 786-4) 30.8 g/dL 31.6-35.1 L RDW-SD (test code = 53720-0) 41.1 fL 39-49.9 RDW-CV (test code = 788-0) 15.6 % 12-15.5 H PLT (test code = 777-3) See_Comment [Au tomated message] The system which ge nerated this result transmit steve reference range: 166 - 35 8 10*3/?L. The reference range was not used to interpret th is result as normal/abnormal . MPV (test code = 30210-6) 10.2 fL 9.5-12.9 NRBC/100 WBC (test code = See_Comment [ Automated message] The [id number]) system which ge nerated this result transmit steve reference range: 0.0 - 10 .0 /100 WBCs. The reference r zahra was not used to interpr et this result as normal/abnor mal. NRBC x10^3 (test code = <0.01 See_Comment [Au tomated message] The [id number]) system which ge nerated this result transmit steve reference range: 10*3/?L. The reference range was not u sed to interpret this result as normal/abnormal . GRAN MAT (NEUT) % (test code 62.9 % = 770-8) IMM GRAN % (test code = 2.60 % [id number]) LYMPH % (test code = 736-9) 24.4 % MONO % (test code = 5905-5) 7.4 % EOS % (test code = 713-8) 1.8 % BASO % (test code = 706-2) 0.9 % GRAN MAT x10^3(ANC) (test 7.76 10*3/uL 1.88-7.09 H code = 2687843048) IMM GRAN x10^3 (test code = 0.32 10*3/uL 0-0.06 H [id number]) LYMPH x10^3 (test code = 3.00 10*3/uL 1.32-3.29 731-0) MONO x10^3 (test code = 0.91 10*3/uL 0.33-0.92 742-7) EOS x10^3 (test code = 0.22 10*3/uL 0.03-0.39 711-2) BASO x10^3 (test code = 0.11 10*3/uL 0.01-0.07 H 704-7) Lab Interpretation (test Abnormal code = 48967-4) [facility] [id number] 13:17:00 Test Item Value Reference Range Interpretation Comments Syphilis IgG/IgM (test Non-reactive Non-reactive code = 97745-2) ADAL (test code = ADAL) Non-reactive - No serologic evidence of T. pallidum infection. Cannot exclude incubating or early syphilis. Submit a second specimen in 2-4 weeks if syphilis is clinically suspected. Equivocal - Further testing to follow. Reactive - Further testing to follow. Lab Interpretation (test Normal code = 09257-0) [facility] IMMUNE [id number] 06:50:01 Test Item Value Reference Range Interpretation Comments RHIG CANDIDATE? No- see comment Patient i s not a (test code = candidate for R hIg- 5055) Patient is Rh Positive.Perfor med at [facility] Laboratory Services - [facility] Blood [address] [place] [address]Dedp Free: [phone] A No. [id number] [facility] CORD [id number] 05:16:00 Test Item Value Reference Range Interpretation Comments VENOUS BASE EXCESS, mEq/L CORD (test code = 9403916154) VENOUS PH, CORD (test 7.25-7.45 code = 0229936965) VENOUS PC02, CORD See_Comment [Automate d message] The (test code = system which ge nerated [id number]) this result tra nsmitted reference range : 27 - 49 mmHg. The refer ence range was not used to interpret this result as normal/abnormal . VENOUS PO2, CORD (test See_Comment [Aut omated message] The code = 8955093052) system [facility] generated this result tra nsmitted reference range : 17 - 41 mmHg. The refer ence range was not used to interpret this result as normal/abnormal . VENOUS BICARBONATE, See_Comment QUES [Au tomated message] CORD (test code = The system which generated [id number]) this result tra nsmitted reference range : 12 - 29 mEq/L. The refe rence range was not used to interpret this result as normal/abnormal . [facility] CORD [id number] 05:14:00 Test Item Value Reference Range Interpretation Comments BASE EXCESS, CORD mEq/L (test code = 2257253177) AC PH, CORD (BEAKER) 7.18-7.38 (test code = 7654311815) PC02, CORD (test code See_Comment [Auto mated message] The = 6091750234) system which g enerated this result transmit steve reference range : 32 - 66 mmHg. The refer ence range was not used to interpret this result as normal/abnormal . PO2, CORD (test code See_Comment [Autom ated message] The = 3313889963) system which g enerated this result transmit steve reference range : 10 - 30 mmHg. The refer ence range was not used to interpret this result as normal/abnormal . BICARBONATE, CORD See_Comment [Automate d message] The (test code = system which ge nerated this 3322325214) result transmit steve reference range : 17 - 27 mEq/L. The refe rence range was not used to interpret this result as normal/abnormal . [facility]eville[facility]atitis B Surface [id number] 22:43:00 Test Item Value Reference Range Interpretation Comments HBsAg Semi-Quantitative (test code = Negative Negative 5195-3) [facility]eville[facility] and Screen - ONCE [id number] 22:39:56 Test Item Value Reference Range Interpretation Comments ABO & RH (test code O POSITIVE Performe d at [facility] = 20) Laboratory Serv [facility] Blood [facility] [facility] [address]Shac Free: [phone] A No. [id number] IAT (test code = Negative Performed a t [facility] 1185) Laboratory Serv [facility] [address]Oirl Free: [phone] A No. 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 It is used under Emergency Use Authorization (EUA) by FDA. The limit of detection (LOD) of the assay is 125 Genome Equivalents/mL. A positive result is indicative of the presence of SARS-CoV-2 RNA. ?Clinical correlation with patient history and other diagnostic information is necessary to determine patient infection status. A negative (Not Detected) result does not preclude SARS-CoV-2 infection. In patients with clinical symptoms and other tests that are consistent with SARS-CoV-2 infection, negative results should be treated as presumptive negative and a new specimen should be tested with alternative PCR molecular test. Invalid: Please collect a new specimen for repeat patient testing if clinically indicated. Lab Interpretation Normal (test code = 07596-9) [facility]evilleFETAL NON-STRESS [id number] 19:50:42NST: cat 1, reactive/reassuring, no ctx, +accels, neg decls, moderate variability [facility]eville[facility] URINAL[facility] W SPECIFIC [id number] 18:54:00 Test Item Value Reference Range Interpretation Comments POCT U SP GRAV (test code = 3255) . 1.005-1.025 POCT PH U (test code = 3254) . 5-8 POCT U LEUK EST (test code = 3263) . Negative - Negative POCT U NIT (test code = 3262) . Negative - Negative POCT U PROT (test code = 3259) Trace Negative - Negative POCT U GLU (test code = 3256) Neg Negative - Negative POCT U KETONE (test code = 3258) . Negative - Negative POCT U UROBILI (test code = 3260) . 0.2-1 POCT U BILI (test code = 3261) . Negative - Negative POCT U BLD (test code = 3257) . Negative - Negative POCT U COLOR (test code = 3266) POCT U APPEAR (test code = 3267) [facility] URINALYSIS W SPECIFIC [id number] 18:07:00 Test Item Value Reference Range Interpretation Comments POCT U SP GRAV (test code = 3255) . 1.005-1.025 POCT PH U (test code = 3254) . 5-8 POCT U LEUK EST (test code = 3263) . Negative - Negative POCT U NIT (test code = 3262) . Negative - Negative POCT U PROT (test code = 3259) trace Negative - Negative POCT U GLU (test code = 3256) normal Negative - Negative POCT U KETONE (test code = 3258) . Negative - Negative POCT U UROBILI (test code = 3260) . 0.2-1 POCT U BILI (test code = 3261) . Negative - Negative POCT U BLD (test code = 3257) . Negative - Negative POCT U COLOR (test code = 3266) POCT U APPEAR (test code = 3267) [facility] URINALYSIS W SPECIFIC [id number] 18:07:00 Test Item Value Reference Range Interpretation Comments POCT U SP GRAV (test code = 3255) . 1.005-1.025 POCT PH U (test code = 3254) . 5-8 POCT U LEUK EST (test code = 3263) . Negative - Negative POCT U NIT (test code = 3262) . Negative - Negative POCT U PROT (test code = 3259) trace Negative - Negative POCT U GLU (test code = 3256) normal Negative - Negative POCT U KETONE (test code = 3258) . Negative - Negative POCT U UROBILI (test code = 3260) . 0.2-1 POCT U BILI (test code = 3261) . Negative - Negative POCT U BLD (test code = 3257) . Negative - Negative POCT U COLOR (test code = 3266) POCT U APPEAR (test code = 3267) [facility] URINALYSIS W SPECIFIC [id number] 18:07:00 Test Item Value Reference Range Interpretation Comments POCT U SP GRAV (test code = 3255) . 1.005-1.025 POCT PH U (test code = 3254) . 5-8 POCT U LEUK EST (test code = 3263) . Negative - Negative POCT U NIT (test code = 3262) . Negative - Negative POCT U PROT (test code = 3259) trace Negative - Negative POCT U GLU (test code = 3256) normal Negative - Negative POCT U KETONE (test code = 3258) . Negative - Negative POCT U UROBILI (test code = 3260) . 0.2-1 POCT U BILI (test code = 3261) . Negative - Negative POCT U BLD (test code = 3257) . Negative - Negative POCT U COLOR (test code = 3266) POCT U APPEAR (test code = 3267) [facility] URINALYSIS W SPECIFIC [id number] 18:07:00 Test Item Value Reference Range Interpretation Comments POCT U SP GRAV (test code = 3255) . 1.005-1.025 POCT PH U (test code = 3254) . 5-8 POCT U LEUK EST (test code = 3263) . Negative - Negative POCT U NIT (test code = 3262) . Negative - Negative POCT U PROT (test code = 3259) trace Negative - Negative POCT U GLU (test code = 3256) normal Negative - Negative POCT U KETONE (test code = 3258) . Negative - Negative POCT U UROBILI (test code = 3260) . 0.2-1 POCT U BILI (test code = 3261) . Negative - Negative POCT U BLD (test code = 3257) . Negative - Negative POCT U COLOR (test code = 3266) POCT U APPEAR (test code = 3267) [facility] URINALYSIS W SPECIFIC [id number] 19:07:00 Test Item Value Reference Range Interpretation Comments POCT U SP GRAV (test code = 3255) . 1.005-1.025 POCT PH U (test code = 3254) . 5-8 POCT U LEUK EST (test code = 3263) . Negative - Negative POCT U NIT (test code = 3262) . Negative - Negative POCT U PROT (test code = 3259) trace Negative - Negative POCT U GLU (test code = 3256) normal Negative - Negative POCT U KETONE (test code = 3258) . Negative - Negative POCT U UROBILI (test code = 3260) . 0.2-1 POCT U BILI (test code = 3261) . Negative - Negative POCT U BLD (test code = 3257) . Negative - Negative POCT U COLOR (test code = 3266) POCT U APPEAR (test code = 3267) [facility] URINALYSIS W SPECIFIC [id number] 19:07:00 Test Item Value Reference Range Interpretation Comments POCT U SP GRAV (test code = 3255) . 1.005-1.025 POCT PH U (test code = 3254) . 5-8 POCT U LEUK EST (test code = 3263) . Negative - Negative POCT U NIT (test code = 3262) . Negative - Negative POCT U PROT (test code = 3259) trace Negative - Negative POCT U GLU (test code = 3256) normal Negative - Negative POCT U KETONE (test code = 3258) . Negative - Negative POCT U UROBILI (test code = 3260) . 0.2-1 POCT U BILI (test code = 3261) . Negative - Negative POCT U BLD (test code = 3257) . Negative - Negative POCT U COLOR (test code = 3266) POCT U APPEAR (test code = 3267) [facility] URINALYSIS W SPECIFIC [id number] 19:07:00 Test Item Value Reference Range Interpretation Comments POCT U SP GRAV (test code = 3255) . 1.005-1.025 POCT PH U (test code = 3254) . 5-8 POCT U LEUK EST (test code = 3263) . Negative - Negative POCT U NIT (test code = 3262) . Negative - Negative POCT U PROT (test code = 3259) trace Negative - Negative POCT U GLU (test code = 3256) normal Negative - Negative POCT U KETONE (test code = 3258) . Negative - Negative POCT U UROBILI (test code = 3260) . 0.2-1 POCT U BILI (test code = 3261) . Negative - Negative POCT U BLD (test code = 3257) . Negative - Negative POCT U COLOR (test code = 3266) POCT U APPEAR (test code = 3267) [facility] URINALYSIS W SPECIFIC [id number] 19:07:00 Test Item Value Reference Range Interpretation Comments POCT U SP GRAV (test code = 3255) . 1.005-1.025 POCT PH U (test code = 3254) . 5-8 POCT U LEUK EST (test code = 3263) . Negative - Negative POCT U NIT (test code = 3262) . Negative - Negative POCT U PROT (test code = 3259) trace Negative - Negative POCT U GLU (test code = 3256) normal Negative - Negative POCT U KETONE (test code = 3258) . Negative - Negative POCT U UROBILI (test code = 3260) . 0.2-1 POCT U BILI (test code = 3261) . Negative - Negative POCT U BLD (test code = 3257) . Negative - Negative POCT U COLOR (test code = 3266) POCT U APPEAR (test code = 3267) [facility] URINALYSIS W SPECIFIC [id number] 19:07:00 Test Item Value Reference Range Interpretation Comments POCT U SP GRAV (test code = 3255) . 1.005-1.025 POCT PH U (test code = 3254) . 5-8 POCT U LEUK EST (test code = 3263) . Negative - Negative POCT U NIT (test code = 3262) . Negative - Negative POCT U PROT (test code = 3259) trace Negative - Negative POCT U GLU (test code = 3256) normal Negative - Negative POCT U KETONE (test code = 3258) . Negative - Negative POCT U UROBILI (test code = 3260) . 0.2-1 POCT U BILI (test code = 3261) . Negative - Negative POCT U BLD (test code = 3257) . Negative - Negative POCT U COLOR (test code = 3266) POCT U APPEAR (test code = 3267) [facility] URINALYSIS W SPECIFIC [id number] 14:21:00 Test Item Value Reference Range Interpretation Comments POCT U SP GRAV (test code = 3255) . 1.005-1.025 POCT PH U (test code = 3254) . 5-8 POCT U LEUK EST (test code = 3263) . Negative - Negative POCT U NIT (test code = 3262) . Negative - Negative POCT U PROT (test code = 3259) trace Negative - Negative POCT U GLU (test code = 3256) normal Negative - Negative POCT U KETONE (test code = 3258) . Negative - Negative POCT U UROBILI (test code = 3260) . 0.2-1 POCT U BILI (test code = 3261) . Negative - Negative POCT U BLD (test code = 3257) . Negative - Negative POCT U COLOR (test code = 3266) POCT U APPEAR (test code = 3267) [facility] URINALYSIS W SPECIFIC [id number] 19:42:00 Test Item Value Reference Range Interpretation Comments POCT U SP GRAV (test code = 3255) . 1.005-1.025 POCT PH U (test code = 3254) . 5-8 POCT U LEUK EST (test code = 3263) . Negative - Negative POCT U NIT (test code = 3262) . Negative - Negative POCT U PROT (test code = 3259) trace Negative - Negative POCT U GLU (test code = 3256) normal Negative - Negative POCT U KETONE (test code = 3258) . Negative - Negative POCT U UROBILI (test code = 3260) . 0.2-1 POCT U BILI (test code = 3261) . Negative - Negative POCT U BLD (test code = 3257) . Negative - Negative POCT U COLOR (test code = 3266) POCT U APPEAR (test code = 3267) [facility] URINALYSIS W SPECIFIC [id number] 19:42:00 Test Item Value Reference Range Interpretation Comments POCT U SP GRAV (test code = 3255) . 1.005-1.025 POCT PH U (test code = 3254) . 5-8 POCT U LEUK EST (test code = 3263) . Negative - Negative POCT U NIT (test code = 3262) . Negative - Negative POCT U PROT (test code = 3259) trace Negative - Negative POCT U GLU (test code = 3256) normal Negative - Negative POCT U KETONE (test code = 3258) . Negative - Negative POCT U UROBILI (test code = 3260) . 0.2-1 POCT U BILI (test code = 3261) . Negative - Negative POCT U BLD (test code = 3257) . Negative - Negative POCT U COLOR (test code = 3266) POCT U APPEAR (test code = 3267) [facility] URINALYSIS W SPECIFIC [id number] 18:00:00 Test Item Value Reference Range Interpretation Comments POCT U SP GRAV (test code = . 1.005-1.025 3255) POCT PH U (test code = 3254) . 5-8 POCT U LEUK EST (test code = . Negative - Negative 3263) POCT U NIT (test code = 3262) . Negative - Negative POCT U PROT (test code = 3259) trace Negative - Negative POCT U GLU (test code = 3256) negative Negative - Negative POCT U KETONE (test code = 3258) . Negative - Negative POCT U UROBILI (test code = . 0.2-1 3260) POCT U BILI (test code = 3261) . Negative - Negative POCT U BLD (test code = 3257) . Negative - Negative POCT U COLOR (test code = 3266) POCT U APPEAR (test code = 3267) [facility] URINALYSIS W SPECIFIC [id number] 18:00:00 Test Item Value Reference Range Interpretation Comments POCT U SP GRAV (test code = . 1.005-1.025 3255) POCT PH U (test code = 3254) . 5-8 POCT U LEUK EST (test code = . Negative - Negative 3263) POCT U NIT (test code = 3262) . Negative - Negative POCT U PROT (test code = 3259) trace Negative - Negative POCT U GLU (test code = 3256) negative Negative - Negative POCT U KETONE (test code = 3258) . Negative - Negative POCT U UROBILI (test code = . 0.2-1 3260) POCT U BILI (test code = 3261) . Negative - Negative POCT U BLD (test code = 3257) . Negative - Negative POCT U COLOR (test code = 3266) POCT U APPEAR (test code = 3267) [facility] URINALYSIS W SPECIFIC [id number] 15:16:00 Test Item Value Reference Range Interpretation Comments POCT U SP GRAV (test code = . 1.005-1.025 3255) POCT PH U (test code = 3254) 7 mg/dl 5-8 POCT U LEUK EST (test code = 1+ Negative - Negative 3263) POCT U NIT (test code = 3262) NEGATIVE Negative - Negative POCT U PROT (test code = 3259) TRACE Negative - Negative POCT U GLU (test code = 3256) NEGATIVE Negative - Negative POCT U KETONE (test code = 3258) NEGATIVE Negative - Negative POCT U UROBILI (test code = . 0.2-1 3260) POCT U BILI (test code = 3261) . Negative - Negative POCT U BLD (test code = 3257) NEGATIVE Negative - Negative POCT U COLOR (test code = 3266) POCT U APPEAR (test code = 3267) [facility] URINALYSIS W SPECIFIC [id number] 15:16:00 Test Item Value Reference Range Interpretation Comments POCT U SP GRAV (test code = . 1.005-1.025 3255) POCT PH U (test code = 3254) 7 mg/dl 5-8 POCT U LEUK EST (test code = 1+ Negative - Negative 3263) POCT U NIT (test code = 3262) NEGATIVE Negative - Negative POCT U PROT (test code = 3259) TRACE Negative - Negative POCT U GLU (test code = 3256) NEGATIVE Negative - Negative POCT U KETONE (test code = 3258) NEGATIVE Negative - Negative POCT U UROBILI (test code = . 0.2-1 3260) POCT U BILI (test code = 3261) . Negative - Negative POCT U BLD (test code = 3257) NEGATIVE Negative - Negative POCT U COLOR (test code = 3266) POCT U APPEAR (test code = 3267) [facility] URINALYSIS W SPECIFIC [id number] 15:16:00 Test Item Value Reference Range Interpretation Comments POCT U SP GRAV (test code = . 1.005-1.025 3255) POCT PH U (test code = 3254) 7 mg/dl 5-8 POCT U LEUK EST (test code = 1+ Negative - Negative 3263) POCT U NIT (test code = 3262) NEGATIVE Negative - Negative POCT U PROT (test code = 3259) TRACE Negative - Negative POCT U GLU (test code = 3256) NEGATIVE Negative - Negative POCT U KETONE (test code = 3258) NEGATIVE Negative - Negative POCT U UROBILI (test code = . 0.2-1 3260) POCT U BILI (test code = 3261) . Negative - Negative POCT U BLD (test code = 3257) NEGATIVE Negative - Negative POCT U COLOR (test code = 3266) POCT U APPEAR (test code = 3267) [facility] URINALYSIS W SPECIFIC [id number] 15:16:00 Test Item Value Reference Range Interpretation Comments POCT U SP GRAV (test code = . 1.005-1.025 3255) POCT PH U (test code = 3254) 7 mg/dl 5-8 POCT U LEUK EST (test code = 1+ Negative - Negative 3263) POCT U NIT (test code = 3262) NEGATIVE Negative - Negative POCT U PROT (test code = 3259) TRACE Negative - Negative POCT U GLU (test code = 3256) NEGATIVE Negative - Negative POCT U KETONE (test code = 3258) NEGATIVE Negative - Negative POCT U UROBILI (test code = . 0.2-1 3260) POCT U BILI (test code = 3261) . Negative - Negative POCT U BLD (test code = 3257) NEGATIVE Negative - Negative POCT U COLOR (test code = 3266) POCT U APPEAR (test code = 3267) [facility] URINALYSIS W SPECIFIC [id number] 18:15:00 Test Item Value Reference Range Interpretation Comments POCT U SP GRAV (test code = . 1.005-1.025 3255) POCT PH U (test code = 3254) 5 mg/dl 5-8 POCT U LEUK EST (test code = trace Negative - Negative 3263) POCT U NIT (test code = 3262) negative Negative - Negative POCT U PROT (test code = 3259) trace Negative - Negative POCT U GLU (test code = 3256) negative Negative - Negative POCT U KETONE (test code = 3258) negative Negative - Negative POCT U UROBILI (test code = . 0.2-1 3260) POCT U BILI (test code = 3261) . Negative - Negative POCT U BLD (test code = 3257) negative Negative - Negative POCT U COLOR (test code = 3266) POCT U APPEAR (test code = 3267) [facility] [id number] 18:15:00 Test Item Value Reference Range Interpretation Comments POCT PREG (test code = 1605) Positive On board controls acceptable with C Yes Line (test code = 3574) POCT PREG LOT # (test code = 3575) POCT PREG TEST DATE (test code = 3576) [facility] URINALYSIS W SPECIFIC [id number] 18:15:00 Test Item Value Reference Range Interpretation Comments POCT U SP GRAV (test code = . 1.005-1.025 3255) POCT PH U (test code = 3254) 5 mg/dl 5-8 POCT U LEUK EST (test code = trace Negative - Negative 3263) POCT U NIT (test code = 3262) negative Negative - Negative POCT U PROT (test code = 3259) trace Negative - Negative POCT U GLU (test code = 3256) negative Negative - Negative POCT U KETONE (test code = 3258) negative Negative - Negative POCT U UROBILI (test code = . 0.2-1 3260) POCT U BILI (test code = 3261) . Negative - Negative POCT U BLD (test code = 3257) negative Negative - Negative POCT U COLOR (test code = 3266) POCT U APPEAR (test code = 3267) [facility] [id number] 18:15:00 Test Item Value Reference Range Interpretation Comments POCT PREG (test code = 1605) Positive On board controls acceptable with C Yes Line (test code = 3574) POCT PREG LOT # (test code = 3575) POCT PREG TEST DATE (test code = 3576) [facility]CIFIC [id number] 15:02:00 Test Item Value Reference Range Interpretation Comments POCT PH U (test code = 3254) . 5-8 POCT U LEUK EST (test code = 3263) . Negative - Negative POCT U NIT (test code = 3262) . Negative - Negative POCT U PROT (test code = 3259) trace Negative - Negative POCT U GLU (test code = 3256) neg Negative - Negative POCT U KETONE (test code = 3258) . Negative - Negative POCT U BLD (test code = 3257) . Negative - Negative [facility]
--- NOTE | 2021-10-24 20:39 | ER ---
Nurse's Notes [facility] Name: Richar Tariq Age: 21 yrs Sex: Female : 2000 Arrival Date: 10/24/2021 Time: 19:27 Bed Waiting Private MD: Diagnosis: Low back pain ED Course: 10/24 19:27 Patient arrived in ED. es 19:42 Adria Rehman DO is Attending Physician. ms3 10/25 04:20 Jc Villarreal MD is Referral Physician. ms3 04:25 Jc Villarreal MD is Referral Physician. ms3 Administered Medications: No medications were administered Outcome: 10/24 20:38 Discharged to home lp1 Discharge instructions given to Patient left ER lobby prior to receiving discharge instructions; Assessed by Provider prior to being triaged 20:39 Patient left the ED. ld1 10/25 04:21 Discharge ordered by MD. ms3 04:21 Patient left the ED. lp1 04:25 Discharge ordered by MD. ms3 04:26 Patient left the ED. lp1 Signatures: Katherine Bui Laura, RN RN lp1 Adria Rehman DO DO ms3 Sania Ram, RN RN ld1 Corrections: (The following items were deleted from the chart) 04:18 10/24 20:38 Discharge instructions given to Patient left ER lobby prior to receiving lp1 discharge instructions lp1
--- NOTE | 2021-10-25 04:21 | EDPHYS ---
Physician Documentation [facility] Name: Richar Tariq Age: 21 yrs Sex: Female : 2000 Arrival Date: 10/24/2021 Time: 19:27 Bed Waiting Private MD: ED Physician Adria Rehman HPI: 10/24 20:36 This 21 yrs old Female presents to ER via Unassigned with complaints of Back Pain. ms3 20:36 The patient presents with pain that is acute, with no known mechanism of injury. The ms3 symptoms are located in the low back. Onset: The symptoms/episode began/occurred 1 day(s) ago. The pain radiates to the right leg. Associated signs and symptoms: Pertinent negatives: incontinence, numbness, urinary retention. Modifying factors: The patient symptoms are alleviated by nothing, the patient symptoms are aggravated by nothing. 1-year-old female presents for low back pain that began yesterday. Patient states her pain is a 10/10 and described as shooting. Patient states the pain radiates down her right leg. Patient denies alleviating or inciting factors.. Patient denies fevers, chills, IV drug use, bowel or bladder incontinence, numbness, weakness.. ROS: 20:36 Constitutional: Negative for fever, and chills. Eyes: Negative for injury, pain, ms3 redness, and discharge, Neck: Negative for injury, pain, and swelling, Cardiovascular: Negative for chest pain, and palpitations. Respiratory: Negative for shortness of breath, cough, wheezing, and pleuritic chest pain, Abdomen/GI: Negative for abdominal pain, nausea, vomiting, diarrhea, and constipation, Back: Negative for injury and pain, MS/Extremity: Negative for injury and deformity. 20:36 Back: Positive for pain at rest, pain with movement. 20:36 All other systems are negative. Exam: 20:36 Constitutional: This is a well developed, well nourished patient who is awake, alert, ms3 and in no acute distress. Eyes: Pupils equal round and reactive to light, extra-ocular motions intact. Lids and lashes normal. Conjunctiva and sclera are non-icteric and not injected. Periorbital areas with no swelling, redness, or edema. Chest/axilla: Normal chest wall appearance and motion. Nontender with no deformity. Cardiovascular: Regular rate and rhythm with a normal S1 and S2. No gallops, murmurs, or rubs. Normal PMI, no JVD. No pulse deficits. Respiratory: Lungs have equal breath sounds bilaterally, clear to auscultation and percussion. No rales, rhonchi or wheezes noted. No increased work of breathing, no retractions or nasal flaring. Abdomen/GI: Soft, non-tender, with normal bowel sounds. No distension or tympany. No guarding or rebound. No evidence of tenderness throughout. Skin: Warm, dry with normal turgor. Normal color with no rashes, no lesions, and no evidence of cellulitis. MS/ Extremity: Pulses equal, no cyanosis. Neurovascular intact. Full, normal range of motion. Psych: Awake, alert, with orientation to person, place and time. Behavior, mood, and affect are within normal limits. 20:36 Back: pain, that is moderate, ROM is normal, normal spinal alignment noted, CVA tenderness, that is moderate, muscle spasm, is appreciated in the right low back. MDM: 20:30 Patient medically screened. ms3 20:36 Differential diagnosis: DDD vs Sciatica vs muscle spasm. ms3 20:36 ED course: Patient left prior to completion of treatment. Patient is welcome to return ms3 to the emergency department to continue treatment. Unable to give patient discharge instructions.. 10/24 20:36 Order name: Urine Test (obtain specimen) ms3 Administered Medications: No medications were administered Disposition Summary: 10/25/21 04:25 Discharge Ordered Location: Home(10/25/21 04:25) ms3 Condition: Stable(10/25/21 04:25) ms3 Diagnosis - Low back pain(10/25/21 04:25) ms3 Followup: ms3 - With: Jc Villarreal MD - When: 2 - 3 days - Reason: Forms: - Medication Reconciliation Form ms3 - Thank You Letter ms3 - Antibiotic Education ms3 - Prescription Opioid Use ms3 Signatures: Adria Rehman DO DO ms3 Sania Ram RN RN ld1 Corrections: (The following items were deleted from the chart) 10/25 04:18 10/24 20:39 Before Triage ld1 lp1 10/25 04:18 10/24 20:39 wait time ld1 lp1 10/25 04:24 04:21 Home ms3 ms3 04:24 04:21 Stable ms3 ms3 04:24 04:21 Low back pain ms3 ms3
== END 2021-10-25 04:26 | disposition home or self-care (01) ==
LOC: ER 19:24
DX: M54.50 Low back pain, unspecified (principal)
CPT/HCPCS: 99281

== ENCOUNTER 2021-10-25 09:26 | Emergency (ER) | payer OTHER ==
--- OUTSIDE RECORDS SUMMARY | 2021-10-25 09:33 | XMS REPORT | Continuity of Care Document ---
:2000 Author Organization [facility] t Address [address] [place] [address] Care Team Providers Name Role Phone Prudence [...] Type Policy Number Effective Date Expiration Date [facility] [id number] 2020 CHOICE MEDICAID 00:00:00 MEDICAID [facility] [id number] 2019 00:00:00 Advance Directives Directive Decision Effective Termination Comments Source Date Date Healthcare Agents on N/A [facility] FileNameRelationshipHealthcare [facility] Agent Medical RelationshipCommunicationIrewi Branch [facility] [phone] (Mobile) Problems Condition Condition Condition Status Onset [...] nivers asthma asthma 9-16 ity of 00:00: [place] 00 Medical Branch 39 weeks 39 weeks Disease Active Unive rs gestation gestation 9-15 ity of of of 00:00: [place] 00 [facility] Need for Need for Disease Active Unive [...] Univers weight weight 4-27 ity of 00:00: [place] [facility] GBS (group GBS (group Disease Active Overview : Univers B B 8-07 Address ity of 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 [place] cus cus 00 and Medical carrier), carrier), Delivery Br anch +RV +RV culture, culture, currently currently Short Short Disease Active Univers interval interval 7-09 ity of between between 00:00: [place] pregnancie pregnancie 00 Tx dical s s Branch affecting affecting in second in second trimester, trimester, antepartum antepartum Blunt Blunt Disease Active Univers trauma to trauma to 7- ity of abdomen, abdomen, 00:00: [place] initial initial 00 Medical encounter encounter Bran ch Anemia of Anemia of Disease Active Uni vers mother in mother in 6-03 [place]y of , , [place] ante[place] antepartum 00 [place] dical Branch Late Late Disease Active Univers 4-25 ity of care care 00:00: [place] affecting affecting 00 [facility] Bran ch in second in second trimester trimester Limited Limited Disease Active 2019 Univers 4-25 ity of care in care in 00:00: [place] second second 00 Medical trimester trimester Bran ch Candidiasi Candidiasi Disease Active 2019- U nivers s of vulva s of vulva 4-25 it y of and vagina and [place] [facility] Chlamydia Chlamydia Disease Active Uni vers 2-21 ity of 00:00: [address] Multiparit Multiparit Disease Active 2019 U nivers y y 1-18 ity of 00:00: [address] Teen Teen Disease Active Univers parent parent 7-05 ity of 00:00: [address] Single Single Disease Active Univers live live 7-05 it y of 00:00: [address] Family Family Disease Active 2016-08 Univers history of history of 1-13 it y of Down Down 00:00: [place] syndrome syndrome 00 Medica l Branch Obesity in Obesity in Disease Active 2016-08 U nivers 1-13 ity of 00:00: [address] Family Family Disease Active 2016-08 Univers history of history of 1-13 it y of Down Down 00:00: [place] syndrome syndrome 00 Medica l Branch History of History of Disease Active 2016-08 U nivers spontaneou spontaneou 1-13 it y of s s 00:00: [place] , , 00 Medi taylor currently currently Bran ch High risk High risk Disease Active Uni vers , , 7-14 [place] of ante[place] [address] [place] [address] Allergies, Adverse Reactions, Alerts Allergy Allergy Status Severity Reaction(s) Onset Inactive Treating Comm ents Source Name Type Date Date Clinician NO KNOWN Drug Active Univers ALLERGIE Class ity of [facility] Social History Social Habit Start Date Stop Date Quantity Comments Source ASSERTION 2019-08-07 University of 00:00:00 [facility] Exposure to Not sure [facility] SARS-CoV-2 [facility] (event) Branch Sex Assigned At Universit y of [facility] Tobacco use and 2020-04-23 2020-04-23 Never used Universit y of exposure 00:00:00 00:00:00 [facility] Alcohol intake 2020-04-23 2020-04-23 Current University 00:00:00 00:00:00 non-drinker of [facility] alcohol [place] (finding) Smoking Status Start Date Stop Date Source Never smoker [facility] Branch Medications Ordered Filled Start Stop Current Ordering Indication Dosage Frequency Signature Comments Components Source Medication Medication Date Date Medication? Clinician (SIG) Name Name ascorbic 2020-0 Yes 500mg 500 mg, Unive rs acid - Oral, BID, ity of (vitamin C) 13:00: First dose [place] (VITAMIN C) 00 on [facility] Medica l tablet 500 04/24/20 at [facility] mg 0800, Until Discontinu ed, Routine ferrous 2020-0 Yes 325mg 325 mg, Univer s sulfate 04-24 Oral, BID, ity of tablet 325 13:00: [place] 00 on [facility] Medical 04/24/20 at Branch 0800, Until Discontinu ed, Routine ferrous 2020-0 2020- No 325mg Take 325 Univ ers sulfate 04-24 09-17 mg by ity of (IRON) 325 12:44: 00:00 mouth 3 [place] as mg (65 mg 16 :00 (three) Medical iron) times Branch tablet daily with meals. docusate 2020-0 Yes [id number] 240mg Take 1 U nivers calcium 240 -17 capsule by it y of mg capsule 00:00: mouth [place] 00 daily as Medical needed for Branch Constipati on. ibuprofen 2019-0 Yes [id number] 600mg Take 1 Univers 600 mg 9-17 tablet by ity of tablet 00:00: mouth [place] 00 every 6 Medical (six) Branch hours as needed (Pain). Take with food or milk. Iron Fum & 2020-0 Yes [id number] 1{capsu Take 1 Univers P-FA-Vit B -17 le} capsule by ity of & C No.9 00:00: mouth [place] (INTEGRA 00 daily. Medical PLUS) 125 Branch mg iron- 1 mg Cap docusate 2020-0 Yes [id number] 240mg Take 1 U nivers calcium 240 -17 capsule by it y of mg capsule 00:00: mouth [place] 00 daily as Medical needed for Branch Constipati on. ibuprofen 2020-0 Yes [id number] 600mg Take 1 Univers 600 mg 9-17 tablet by ity of tablet 00:00: mouth [place] 00 every 6 Medical (six) Branch hours as needed (Pain). Take with food or milk. Iron Fum & 2020-0 Yes [id number] 1{capsu Take 1 Univers P-FA-Vit B 04-24 [...] 03 Starting Medica l 400 mg/5 mL [facility] Branch suspension 04/23/20 at 30 mL 0142, [...] until the liter is complete.& nbsp;&nbsp ;Notify [employer]ch [employer] Inspector if uterine resting tone exceeds 25 mmHg [...] ed, Routine, Surgery/Pr ocedure ferrous 2020-0 Yes [id number] 325mg Take 1 Un [place] sulfate 325 9-02 tablet by ity of mg (65 mg 00:00: mouth 2 [place] iron) 00 (two) Medical tablet times Branch daily. ascorbic 2020-0 Yes [id number] 500mg Take 1 U nivers acid, 9-02 tablet by ity of vitamin C, 00:00: mouth [place] 500 mg 00 (three) Medical tablet times Branch daily. ferrous 2020-0 Yes [id number] 325mg Take 1 Un [place] sulfate 325 9-02 tablet by ity of mg (65 mg 00:00: mouth 2 [place] iron) 00 (two) Medical tablet times Branch daily. ascorbic 2020-0 Yes [id number] 500mg Take 1 U nivers acid, 9-02 tablet by ity of vitamin C, 00:00: mouth [place] 500 mg 00 (three) Medical tablet times Branch daily. ferrous 2020-0 Yes [id number] 325mg Take 1 Un [place] sulfate 325 9-02 tablet by ity of mg (65 mg 00:00: mouth 2 [place] iron) 00 (two) Medical tablet times Branch daily. ascorbic 2020-0 Yes [id number] 500mg Take 1 U nivers acid, 9-02 tablet by ity of vitamin C, 00:00: mouth [place] 500 mg 00 (three) Medical tablet times Branch daily. ferrous 2020-0 Yes [id number] 325mg Take 1 Un [place] sulfate 325 9-02 tablet by ity of mg (65 mg 00:00: mouth 2 [place] iron) 00 (two) Medical tablet times Branch daily. ascorbic 2020-0 Yes [id number] 500mg Take 1 U nivers acid, 9-02 tablet by ity of vitamin C, 00:00: mouth [place] 500 mg 00 (three) Medical tablet times Branch daily. ferrous 2020-0 Yes [id number] 325mg Take 1 Un [place] sulfate 325 9-02 tablet by ity of mg (65 mg 00:00: mouth 2 [place] iron) 00 (two) Medical tablet times Branch daily. ascorbic 2020-0 Yes [id number] 500mg Take 1 U nivers acid, 9-02 tablet by ity of vitamin C, 00:00: mouth 3 [place] 500 mg 00 (three) Medical tablet times Branch daily. ferrous 2020-0 Yes [id number] 325mg Take 1 Un [place] sulfate 325 9-02 tablet by ity of mg (65 mg 00:00: mouth 2 [place] iron) 00 (two) Medical tablet times Branch daily. ascorbic 2020-0 Yes [id number] 500mg Take 1 U nivers acid, 9-02 tablet by ity of vitamin C, 00:00: mouth [place] 500 mg 00 (three) Medical tablet times Branch daily. ferrous 2020-0 Yes [id number] 325mg Take 1 Un [place] sulfate 325 9-02 tablet by ity of mg (65 mg 00:00: mouth 2 [place] iron) 00 (two) Medical tablet times Branch daily. ascorbic 2020-0 Yes [id number] 500mg Take 1 U nivers acid, 9-02 tablet by ity of vitamin C, 00:00: mouth [place] 500 mg 00 (three) Medical tablet times Branch daily. ferrous 2020-0 2020- No [id number] 325mg Take 1 U nivers sulfate 325 04-09 tablet by it y of mg (65 mg 00:00: 00:00 [place] iron) 00 :00 (two) Medical tablet times Branch daily. ascorbic 2020-0 2020- No [id number] 500mg Take 1 Univers acid, 04-09 tablet by ity of vitamin C, 00:00: 00:00 mouth 3 [place] 500 mg 00 :00 (three) Medical tablet times Branch daily. ampicillin 2020-0 2020- No [id number] 500mg Take 1 Univers 500 mg 4-29 05-10 capsule by ity of capsule 00:00: 04:59 mouth [place] 00 :00 every 6 Medical (six) Branch hours for 10 days. ampicillin 2020-0 2020- No [id number] 500mg Take 1 Univers 500 mg 4-29 05-10 capsule by ity of capsule 00:00: 04:59 mouth [place] 00 :00 every 6 Medical (six) Branch hours for 10 days. ampicillin 2020-0 2020- No [id number] 500mg Take 1 Univers 500 mg 4-29 05-10 capsule by ity of capsule 00:00: 04:59 mouth [place] 00 :00 every 6 Medical (six) Branch hours for 10 days. ampicillin 2020-0 2020- No [id number] 500mg Take 1 Univers 500 mg 4-29 05-10 capsule by ity of capsule 00:00: 04:59 mouth [place] 00 :00 every 6 Medical (six) Branch hours for 10 days. ampicillin 2020-0 2020- No [id number] 500mg Take 1 Univers 500 mg 4-29 05-10 capsule by ity of capsule 00:00: 04:59 mouth [place] 00 :00 every 6 Medical (six) Branch hours for 10 days. ampicillin 2020-0 2020- No [id number] 500mg Take 1 Univers 500 mg 4-29 [...] Branch tablet daily with meals. 2020-0 Yes [id number] 1{packe Take 1 Univers vit 4-27 t} Packet by ity of 33-iron-fol 00:00: mouth [place] ic-dha 00 daily. Medical (SELECT-OB Branch + DHA) 29 mg iron-1 mg -250 mg combo pack 2020-0 Yes [id number] 1{packe Take 1 Univers vit 4-27 t} Packet by ity of 33-iron-fol 00:00: mouth [place] ic-dha 00 daily. Medical (SELECT-OB Branch + DHA) 29 mg iron-1 mg -250 mg combo pack 2020-0 Yes [id number] 1{packe Take 1 Univers vit 4-27 t} Packet by ity of 33-iron-fol 00:00: mouth [place] ic-dha 00 daily. Medical (SELECT-OB Branch + DHA) 29 mg iron-1 mg -250 mg combo pack 2020-0 Yes [id number] 1{packe Take 1 Univers vit 4-27 t} Packet by ity of 33-iron-fol 00:00: mouth [place] ic-dha 00 daily. Medical (SELECT-OB Branch + DHA) 29 mg iron-1 mg -250 mg combo pack 2020-0 Yes [id number] 1{packe Take 1 Univers vit 4-27 t} Packet by ity of 33-iron-fol 00:00: mouth [place] ic-dha 00 daily. Medical (SELECT-OB Branch + DHA) 29 mg iron-1 mg -250 mg combo pack 2020-0 Yes [id number] 1{packe Take 1 Univers vit 4-27 t} Packet by ity of 33-iron-fol 00:00: mouth [place] ic-dha 00 daily. Medical (SELECT-OB Branch + DHA) 29 mg iron-1 mg -250 mg combo pack 2020-0 Yes [id number] 1{packe Take 1 Univers vit 4-27 t} Packet by ity of 33-iron-fol 00:00: mouth [place] ic-dha 00 daily. Medical (SELECT-OB Branch + DHA) 29 mg iron-1 mg -250 mg combo pack 2020-0 Yes [id number] 1{packe Take 1 Univers vit 4-27 t} Packet by ity of 33-iron-fol 00:00: mouth [place] ic-dha 00 daily. Medical (SELECT-OB Branch + DHA) 29 mg iron-1 mg -250 mg combo pack 2020-0 Yes [id number] 1{packe Take 1 Univers vit 4-27 t} Packet by ity of 33-iron-fol 00:00: mouth [place] ic-dha 00 daily. Medical (SELECT-OB Branch + DHA) 29 mg iron-1 mg -250 mg combo pack 2020-0 Yes [id number] 1{packe Take 1 Univers vit 4-27 t} Packet by ity of 33-iron-fol 00:00: mouth [place] ic-dha 00 daily. Medical (SELECT-OB Branch + DHA) 29 mg iron-1 mg -250 mg combo pack 2020-0 Yes [id number] 1{packe Take 1 Univers vit 4-27 t} Packet by ity of 33-iron-fol 00:00: mouth [place] ic-dha 00 daily. Medical (SELECT-OB Branch + DHA) 29 mg iron-1 mg -250 mg combo pack 2020-0 Yes [id number] 1{packe Take 1 Univers vit 4-27 t} Packet by ity of 33-iron-fol 00:00: mouth [place] ic-dha 00 daily. Medical (SELECT-OB Branch + DHA) 29 mg iron-1 mg -250 mg combo pack 2020-0 Yes [id number] 1{packe Take 1 Univers vit 4-27 t} Packet by ity of 33-iron-fol 00:00: mouth [place] ic-dha 00 daily. Medical (SELECT-OB Branch + DHA) 29 mg iron-1 mg -250 mg combo pack 2020-0 Yes [id number] 1{packe Take 1 Univers vit 4-27 t} Packet by ity of 33-iron-fol 00:00: mouth [place] ic-dha 00 daily. Medical (SELECT-OB Branch + DHA) 29 mg iron-1 mg -250 mg combo pack 2020-0 Yes [id number] 1{packe Take 1 Univers vit 4-27 t} Packet by ity of 33-iron-fol 00:00: mouth [place] ic-dha 00 daily. Medical (SELECT-OB Branch + DHA) 29 mg iron-1 mg -250 mg combo pack 2020-0 Yes [id number] 1{packe Take 1 Univers vit 4-27 t} Packet by ity of 33-iron-fol 00:00: mouth [place] ic-dha 00 daily. Medical (SELECT-OB Branch + DHA) 29 mg iron-1 mg -250 mg combo pack 2020-0 Yes [id number] 1{packe Take 1 Univers vit 4-27 t} Packet by ity of 33-iron-fol 00:00: mouth [place] ic-dha 00 daily. Medical (SELECT-OB Branch + DHA) 29 mg iron-1 mg -250 mg combo pack 2020-0 Yes [id number] 1{packe Take 1 Univers vit 4-27 t} Packet by ity of 33-iron-fol 00:00: mouth [place] ic-dha 00 daily. Medical (SELECT-OB Branch + DHA) 29 mg iron-1 mg -250 mg combo pack 2020-0 Yes [id number] 1{packe Take 1 Univers vit 4-27 t} Packet by ity of 33-iron-fol 00:00: mouth [place] ic-dha 00 daily. Medical (SELECT-OB Branch + DHA) 29 mg iron-1 mg -250 mg combo pack 2020-0 Yes [id number] 1{packe Take 1 Univers vit 4-27 t} Packet by ity of 33-iron-fol 00:00: mouth [place] ic-dha 00 daily. Medical (SELECT-OB Branch + DHA) 29 mg iron-1 mg -250 mg combo pack 2020-0 Yes [id number] 1{packe Take 1 Univers vit 4-27 t} Packet by ity of 33-iron-fol 00:00: mouth [place] ic-dha 00 daily. Medical (SELECT-OB Branch + DHA) 29 mg iron-1 mg -250 mg combo pack 2020-0 Yes [id number] 1{packe Take 1 Univers vit 4-27 t} Packet by ity of 33-iron-fol 00:00: mouth [place] ic-dha 00 daily. Medical (SELECT-OB Branch + DHA) 29 mg iron-1 mg -250 mg combo pack 2020-0 Yes [id number] 1{packe Take 1 Univers vit 4-27 t} Packet by ity of 33-iron-fol 00:00: mouth [place] ic-dha 00 daily. Medical (SELECT-OB Branch + DHA) 29 mg iron-1 mg -250 mg combo pack 2020-0 Yes [id number] 1{packe Take 1 Univers vit 4-27 t} Packet by ity of 33-iron-fol 00:00: mouth [place] ic-dha 00 daily. Medical (SELECT-OB Branch + DHA) 29 mg iron-1 mg -250 mg combo pack 2020-0 Yes [id number] 1{packe Take 1 Univers vit 4-27 t} Packet by ity of 33-iron-fol 00:00: mouth [place] ic-dha 00 daily. Medical (SELECT-OB Branch + DHA) 29 mg iron-1 mg -250 mg combo pack 2020-0 Yes [id number] 1{packe Take 1 Univers vit 4-27 t} Packet by ity of 33-iron-fol 00:00: mouth [place] ic-dha 00 daily. Medical (SELECT-OB Branch + DHA) 29 mg iron-1 mg -250 mg combo pack 2020-0 Yes [id number] 1{packe Take 1 Univers vit 4-27 t} Packet by ity of 33-iron-fol 00:00: mouth [place] ic-dha 00 daily. Medical (SELECT-OB Branch + DHA) 29 mg iron-1 mg -250 mg combo pack 2020-0 Yes [id number] 1{packe Take 1 Univers vit 4-27 t} Packet by ity of 33-iron-fol 00:00: mouth [place] ic-dha 00 daily. Medical (SELECT-OB Branch + DHA) 29 mg iron-1 mg -250 mg combo pack 2020-0 Yes [id number] 1{packe Take 1 Univers vit 4-27 t} Packet by ity of 33-iron-fol 00:00: mouth [place] ic-dha 00 daily. Medical (SELECT-OB Branch + DHA) 29 mg iron-1 mg -250 mg combo pack 2020-0 Yes [id number] 1{packe Take 1 Univers vit 4-27 t} Packet by ity of 33-iron-fol 00:00: mouth [place] ic-dha 00 daily. Medical (SELECT-OB Branch + DHA) 29 mg iron-1 mg -250 mg combo pack 2020-0 Yes [id number] 1{packe Take 1 Univers vit 4-27 t} Packet by ity of 33-iron-fol 00:00: mouth [place] ic-dha 00 daily. Medical (SELECT-OB Branch + DHA) 29 mg iron-1 mg -250 mg combo pack 2020-0 Yes [id number] 1{packe Take 1 Univers vit 4-27 t} Packet by ity of 33-iron-fol 00:00: mouth [place] ic-dha 00 daily. Medical (SELECT-OB Branch + DHA) 29 mg iron-1 mg -250 mg combo pack 2020-0 Yes [id number] 1{packe Take 1 Univers vit 4-27 t} Packet by ity of 33-iron-fol 00:00: mouth [place] ic-dha 00 daily. Medical ([facility] Branch + DHA) 29 mg iron-1 mg -250 mg combo pack 2020-0 Yes [id number] 1{packe Take 1 Univers vit 4-27 t} Packet by ity of 33-iron-fol 00:00: mouth [place] ic-dha 00 daily. Medical ([facility] Branch + DHA) 29 mg iron-1 mg -250 mg combo pack 2020-0 Yes [id number] 1{packe Take 1 Univers vit 4-27 t} Packet by ity of 33-iron-fol 00:00: mouth [place] ic-dha 00 daily. Medical ([facility] Branch + DHA) 29 mg iron-1 mg -250 mg combo pack 2020-0 Yes [id number] 1{packe Take 1 Univers vit 4-27 t} Packet by ity of 33-iron-fol 00:00: mouth [place] ic-dha 00 daily. Medical [facility] 29 mg iron-1 mg -250 mg combo pack 2020-0 Yes [id number] 1{packe Take 1 Univers vit 4-27 t} Packet by ity of 33-iron-fol 00:00: mouth [place] ic-dha 00 daily. Medical [facility]) 29 mg iron-1 mg -250 mg combo pack 2020-0 Yes [id number] 1{packe Take 1 Univers vit 4-27 t} Packet by ity of 33-iron-fol 00:00: mouth [place] ic-dha 00 daily. Medical ([facility]) 29 mg iron-1 mg -250 mg combo pack 2019-0 2020- No [id number] 1{packe Take 1 Univers vit 4-27 09-17 t} Packet by ity of 33-iron-fol 00:00: 00:00 [place] ic-dha 00 :00 daily. Medical [facility] 29 mg iron-1 mg -250 mg combo pack Iron, Cbn & 2019-0 Yes [id number] 1{tbl} Take 1 Univers Gluc-FA-B12 6-03 tablet by ity of -C-DSS 00:00: mouth [place] (FERRALET 00 daily. Medical 90 Branch DUAL-IRON DELIVERY) 90-1-12-50 mg-mg-mcg-m g per tablet Iron, Cbn & 2019-0 Yes [id number] 1{tbl} Take 1 Univers Gluc-FA-B12 6-03 tablet by ity of -C-DSS 00:00: mouth [place] (FERRALET [address] DUAL-IRON DELIVERY) 90-1-12-50 mg-mg-mcg-m g per tablet Iron, Cbn & 2019-0 Yes [id number] 1{tbl} Take 1 Univers Gluc-FA-B12 6-03 tablet by ity of -C-DSS 00:00: mouth [place] (FERRALET [address] DUAL-IRON DELIVERY) 90-1-12-50 mg-mg-mcg-m g per tablet Iron, Cbn & 2019-0 Yes [id number] 1{tbl} Take 1 Univers Gluc-FA-B12 6-03 tablet by ity of -C-DSS 00:00: mouth [place] (FERRALET [address] DUAL-IRON DELIVERY) 90-1-12-50 mg-mg-mcg-m g per tablet Iron, Cbn & 2019-0 Yes [id number] 1{tbl} Take 1 Univers Gluc-FA-B12 6-03 tablet by ity of -C-DSS 00:00: mouth [place] (FERRALET [address] DUAL-IRON DELIVERY) 90-1-12-50 mg-mg-mcg-m g per tablet Iron, Cbn & 2019-0 Yes [id number] 1{tbl} Take 1 Univers Gluc-FA-B12 6-03 tablet by ity of -C-DSS 00:00: mouth [place] (FERRALET [address] DUAL-IRON DELIVERY) 90-1-12-50 mg-mg-mcg-m g per tablet Iron, Cbn & 2019-0 Yes [id number] 1{tbl} Take 1 Univers Gluc-FA-B12 6-03 tablet by ity of -C-DSS 00:00: mouth [place] (FERRALET [address] DUAL-IRON DELIVERY) 90-1-12-50 mg-mg-mcg-m g per tablet Iron, Cbn & 2019-0 Yes [id number] 1{tbl} Take 1 Univers Gluc-FA-B12 6-03 tablet by ity of -C-DSS 00:00: mouth [place] (FERRALET 00 daily. Medical 90 Branch DUAL-IRON DELIVERY) 90-1-12-50 mg-mg-mcg-m g per tablet Iron, Cbn & 2020- No [id number] 1{tbl} Take 1 Univers Gluc-FA-B12 6-10 09-27 tablet by it y of -C-DSS 00:00: 00:00 mouth [place] (FERRALET 00 :[address] DUAL-IRON DELIVERY) 90-1-12-50 mg-mg-mcg-m g per tablet Iron, Cbn & 2020- No [id number] 1{tbl} Take 1 Univers Gluc-FA-B12 6-10 09-27 tablet by it y of -C-DSS 00:00: 00:00 mouth [place] (FERRALET 00 :[address] DUAL-IRON DELIVERY) 90-1-12-50 mg-mg-mcg-m g per tablet acetaminoph Yes [id number] 1{capsu Take 1 Univers en-caff-but 5-31 le} capsule by it y of albital 00:00: mouth [place] (ESGIC) per 00 every 4 Medic al capsule (four) Branch hours as needed for Headache. acetaminoph Yes [id number] 1{capsu Take 1 Univers en-caff-but 5-31 le} capsule by it y of albital 00:00: mouth [place] (ESGIC) per 00 every 4 Medic al capsule (four) Branch hours as needed for Headache. acetaminoph Yes [id number] 1{capsu Take 1 Univers en-caff-but 5-31 le} capsule by it y of albital 00:00: mouth [place] (ESGIC) per 00 every 4 Medic al capsule (four) Branch hours as needed for Headache. acetaminoph Yes [id number] 1{capsu Take 1 Univers en-caff-but 5-31 le} capsule by it y of albital 00:00: mouth [place] (ESGIC) per 00 every 4 Medic al capsule (four) Branch hours as needed for Headache. acetaminoph Yes [id number] 1{capsu Take 1 Univers en-caff-but 5-31 le} capsule by it y of albital 00:00: mouth [place] (ESGIC) per 00 every 4 Medic al capsule (four) Branch hours as needed for Headache. acetaminoph Yes [id number] 1{capsu Take 1 Univers en-caff-but 5-31 le} capsule by it y of albital 00:00: mouth [place] (ESGIC) per 00 every 4 Medic al capsule (four) Branch hours as needed for Headache. acetaminoph Yes [id number] 1{capsu Take 1 Univers en-caff-but 5-31 le} capsule by it y of albital 00:00: mouth [place] (ESGIC) per 00 every 4 Medic al capsule (four) Branch hours as needed for Headache. acetaminoph Yes [id number] 1{capsu Take 1 Univers en-caff-but 5-31 le} capsule by it y of albital 00:00: mouth [place] (ESGIC) per 00 every 4 Medic al capsule (four) Branch hours as needed for Headache. acetaminoph 2020- No [id number] 1{capsu Take 1 Univers en-caff-but 5-31 04-27 le} capsule by i ty of albital 00:00: 00:00 mouth [place] (ESGIC) per 00 :00 every 4 Medic al capsule (four) Branch hours as needed for Headache. acetaminoph 2020- No [id number] 1{capsu Take 1 Univers en-caff-but 5-31 04-27 le} capsule by i ty of albital 00:00: 00:00 mouth [place] (ESGIC) per 00 :00 every 4 Medic al capsule (four) Branch hours as needed for Headache. Yes [id number] 1{packe Take 1 Univers vit 1-29 t} Packet by ity of 33-iron-fol 00:00: mouth [place] ic-dha 00 daily. Medical (SELECT-OB Branch + DHA) 29 mg iron-1 mg -250 mg combo pack Yes [id number] 1{packe Take 1 Univers vit 1-29 t} Packet by ity of 33-iron-fol 00:00: mouth [place] ic-dha 00 daily. Medical (SELECT-OB Branch + DHA) 29 mg iron-1 mg -250 mg combo pack Yes [id number] 1{packe Take 1 Univers vit 1-29 t} Packet by ity of 33-iron-fol 00:00: mouth [place] ic-dha 00 daily. Medical (SELECT-OB Branch + DHA) 29 mg iron-1 mg -250 mg combo pack Yes [id number] 1{packe Take 1 Univers vit 1-29 t} Packet by ity of 33-iron-fol 00:00: mouth [place] ic-dha 00 daily. Medical (SELECT-OB Branch + DHA) 29 mg iron-1 mg -250 mg combo pack Yes [id number] 1{packe Take 1 Univers vit 1-29 t} Packet by ity of 33-iron-fol 00:00: mouth [place] ic-dha 00 daily. Medical (SELECT-OB Branch + DHA) 29 mg iron-1 mg -250 mg combo pack Yes [id number] 1{packe Take 1 Univers vit 1-29 t} Packet by ity of 33-iron-fol 00:00: mouth [place] ic-dha 00 daily. Medical (SELECT-OB Branch + DHA) 29 mg iron-1 mg -250 mg combo pack Yes [id number] 1{packe Take 1 Univers vit 1-29 t} Packet by ity of 33-iron-fol 00:00: mouth [place] ic-dha 00 daily. Medical (SELECT-OB Branch + DHA) 29 mg iron-1 mg -250 mg combo pack Yes [id number] 1{packe Take 1 Univers vit 1-29 t} Packet by ity of 33-iron-fol 00:00: mouth [place] ic-dha 00 daily. Medical (SELECT-OB Branch + DHA) 29 mg iron-1 mg -250 mg combo pack 2020- No [id number] 1{packe Take 1 Univers vit 1-29 04-27 t} Packet by ity of 33-iron-fol 00:00: 00:00 [place] ic-d[place] 00 :00 daily. Medical (SELECT-OB Branch + DHA) 29 mg iron-1 mg -250 mg combo pack 2020- No [id number] 1{packe Take 1 Univers vit 1-29 04-27 t} Packet by ity of 33-iron-fol 00:00: 00:00 [place] ic-d[place] 00 :00 daily. Medical (SELECT-OB Branch + DHA) 29 mg iron-1 mg -250 mg combo pack Immunizations Ordered Filled Immunization Date Status Comments [facility] e Immunization Name Name TDAP 2020-02-18 Completed University of 00:00:00 [place] [facility] TDAP 2020-02-18 Completed University of 00:00:00 [place] [facility] TDAP 2020-02-18 Completed University of 00:00:00 [place] [facility] TDAP 2020-02-18 Completed University of 00:00:00 [place] [facility] TDAP 2020-02-18 Completed University of 00:00:00 [facility] TDAP 2020-02-18 Completed [facility] 00:00:00 [facility] TDAP 2020-02-18 Completed [facility] 00:00:00 [facility] TDAP 2020-02-18 Completed [facility] 00:00:00 [facility] TDAP 2020-02-18 Completed [facility] 00:00:00 [facility] TDAP 2020-02-18 Completed [facility] 00:00:00 [facility] TDAP 2020-02-18 Completed [facility] 00:00:00 [facility] TDAP 2020-02-18 Completed [facility] 00:00:00 [facility] TDAP 2020-02-18 Completed [facility] 00:00:00 [facility] TDAP 2020-02-18 Completed [facility] 00:00:00 [facility] TDAP 2020-02-18 Completed [facility] 00:00:00 [facility] TDAP 2020-02-18 Completed [facility] 00:00:00 [facility] TDAP 2020-02-18 Completed [facility] 00:00:00 [facility] TDAP 2020-02-18 Completed [facility] 00:00:00 [facility] TDAP 2020-02-18 Completed [facility] 00:00:00 [facility] TDAP 2020-02-18 Completed [facility] 00:00:00 [facility] TDAP 2020-02-18 Completed [facility] 00:00:00 [facility] TDAP 2020-02-18 Completed [facility] 00:00:00 [facility] TDAP 2020-02-18 Completed [facility] 00:00:00 [facility] TDAP 2020-02-18 Completed [facility] 00:00:00 [facility] Tdap 2019-01-05 Completed [facility] 00:00:00 [facility] Tdap 2019-01-05 Completed [facility] 00:00:00 [facility] Tdap 2019-01-05 Completed [facility] 00:00:00 [facility] Tdap 2019-01-05 Completed [facility] 00:00:00 [facility] Tdap 2019-01-05 Completed [facility] 00:00:00 [facility] Tdap 2019-01-05 Completed [facility] 00:00:00 [facility] Tdap 2019-01-05 Completed [facility] 00:00:00 [facility] Tdap 2019-01-05 Completed [facility] 00:00:00 [facility] Tdap 2019-01-05 Completed [facility] 00:00:00 [facility] Tdap 2019-01-05 Completed [facility] 00:00:00 [facility] Tdap 2019-01-05 Completed [facility] 00:00:00 [facility] Tdap 2019-01-05 Completed [facility] 00:00:00 [facility] Tdap 2019-01-05 Completed [facility] 00:00:00 [facility] Tdap 2019-01-05 Completed [facility] 00:00:00 [facility] Tdap 2019-01-05 Completed [facility] 00:00:00 [facility] Tdap 2019-01-05 Completed [facility] 00:00:00 [facility] TDAP 2019-01-05 Completed [facility] 00:00:00 [facility] TDAP 2019-01-05 Completed [facility] 00:00:00 [facility] TDAP 2019-01-05 Completed [facility] 00:00:00 [facility] TDAP 2019-01-05 Completed [facility] 00:00:00 [facility] TDAP 2019-01-05 Completed [facility] 00:00:00 [facility] Tdap 2019-01-05 Completed [facility] 00:00:00 [facility] TDAP 2019-01-05 Completed [facility] 00:00:00 [facility] TDAP 2019-01-05 Completed [facility] 00:00:00 [facility] TDAP 2019-01-05 Completed [facility] 00:00:00 [facility] TDAP 2019-01-05 Completed [facility] 00:00:00 [facility] TDAP 2019-01-05 Completed [facility] 00:00:00 [facility] TDAP 2019-01-05 Completed [facility] 00:00:00 [facility] TDAP 2019-01-05 Completed [facility] 00:00:00 [facility] Tdap 2019-01-05 Completed [facility] 00:00:00 [facility] TDAP 2019-01-05 Completed [facility] 00:00:00 [facility] TDAP 2019-01-05 Completed [facility] 00:00:00 [facility] TDAP 2019-01-05 Completed [facility] 00:00:00 [facility] TDAP 2019-01-05 Completed [facility] 00:00:00 [facility] TDAP 2019-01-05 Completed [facility] 00:00:00 [facility] TDAP 2019-01-05 Completed [facility] 00:00:00 [facility] TDAP 2019-01-05 Completed [facility] 00:00:00 [facility] TDAP 2019-01-05 Completed [facility] 00:00:00 [facility] TDAP 2019-01-05 Completed [facility] 00:00:00 [facility] TDAP 2019-01-05 Completed [facility] 00:00:00 [facility] TDAP 2019-01-05 Completed [facility] 00:00:00 [facility] TDAP 2019-01-05 Completed [facility] 00:00:00 [facility] Tdap 2019-01-05 Completed [facility] 00:00:00 [facility] TDAP 2019-01-05 Completed [facility] 00:00:00 [facility] TDAP 2019-01-05 Completed [facility] 00:00:00 [facility] Tdap 2019-01-05 Completed [facility] 00:00:00 [facility] Tdap 2019-01-05 Completed [facility] 00:00:00 [facility] Tdap 2019-01-05 Completed [facility] 00:00:00 [facility] Tdap 2017-12-14 Completed [facility] 00:00:00 [facility] Tdap 2017-12-14 Completed [facility] 00:00:00 [facility] Tdap 2017-12-14 Completed [facility] 00:00:00 [facility] Tdap 2017-12-14 Completed [facility] 00:00:00 [facility] Tdap 2017-12-14 Completed [facility] 00:00:00 [facility] Tdap 2017-12-14 Completed [facility] 00:00:00 [facility] Tdap 2017-12-14 Completed [facility] 00:00:00 [facility] Tdap 2017-12-14 Completed [facility] 00:00:00 [facility] Tdap 2017-12-14 Completed [facility] 00:00:00 [facility] Tdap 2017-12-14 Completed [facility] 00:00:00 [facility] Tdap 2017-12-14 Completed [facility] 00:00:00 [facility] Tdap 2017-12-14 Completed [facility] 00:00:00 [facility] Tdap 2017-12-14 Completed [facility] 00:00:00 [facility] Tdap 2017-12-14 Completed [facility] 00:00:00 [facility] Tdap 2017-12-14 Completed [facility] 00:00:00 [facility] Tdap 2017-12-14 Completed [facility] 00:00:00 [facility] Tdap 2017-12-14 Completed [facility] 00:00:00 [facility] Tdap 2017-12-14 Completed [facility] 00:00:00 [facility] TDAP 2017-12-14 Completed [facility] 00:00:00 [facility] TDAP 2017-12-14 Completed [facility] 00:00:00 [facility] TDAP 2017-12-14 Completed [facility] 00:00:00 [facility] TDAP 2017-12-14 Completed [facility] 00:00:00 [facility] Tdap 2017-12-14 Completed [facility] 00:00:00 [facility] TDAP 2017-12-14 Completed [facility] 00:00:00 [facility] TDAP 2017-12-14 Completed [facility] 00:00:00 [facility] TDAP 2017-12-14 Completed [facility] 00:00:00 [facility] TDAP 2017-12-14 Completed [facility] 00:00:00 [facility] TDAP 2017-12-14 Completed [facility] 00:00:00 [facility] TDAP 2017-12-14 Completed [facility] 00:00:00 [facility] TDAP 2017-12-14 Completed [facility] 00:00:00 [facility] Tdap 2017-12-14 Completed [facility] 00:00:00 [facility] TDAP 2017-12-14 Completed [facility] 00:00:00 [facility] TDAP 2017-12-14 Completed [facility] 00:00:00 [facility] TDAP 2017-12-14 Completed [facility] 00:00:00 [facility] TDAP 2017-12-14 Completed [facility] 00:00:00 [facility] TDAP 2017-12-14 Completed [facility] 00:00:00 [facility] TDAP 2017-12-14 Completed [facility] 00:00:00 [facility] TDAP 2017-12-14 Completed [facility] 00:00:00 [facility] TDAP 2017-12-14 Completed [facility] 00:00:00 [facility] TDAP 2017-12-14 Completed [facility] 00:00:00 [facility] TDAP 2017-12-14 Completed [facility] 00:00:00 [facility] TDAP 2017-12-14 Completed [facility] 00:00:00 [facility] TDAP 2017-12-14 Completed [facility] 00:00:00 [facility] TDAP 2017-12-14 Completed [facility] 00:00:00 [facility] Tdap 2017-12-14 Completed [facility] 00:00:00 [facility] TDAP 2017-12-14 Completed [facility] 00:00:00 [facility] TDAP 2017-12-14 Completed [facility] 00:00:00 [facility] Tdap 2017-12-14 Completed [facility] 00:00:00 [facility] Tdap 2015-08-08 Completed [facility] 00:00:00 [facility] Tdap 2015-08-08 Completed [facility] 00:00:00 [facility] Tdap 2015-08-08 Completed [facility] 00[facility]00:00 [facility] Tdap 2015-08-08 Completed [facility] 00:00:00 [facility] Tdap 2015-08-08 Completed [facility] 00:00:00 [facility] Tdap 2015-08-08 Completed [facility] 00:00:00 [facility] Tdap 2015-08-08 Completed [facility] 00[facility]00:00 [facility] Tdap 2015-08-08 Completed [facility] 00:00:00 [facility] Tdap 2015-08-08 Completed [facility] 00:00:00 [facility] Tdap 2015-08-08 Completed [facility] 00:00:00 [facility] Tdap 2015-08-08 Completed [facility] 00:00:00 [facility] Tdap 2015-08-08 Completed [facility] 00:00:00 [facility] Tdap 2015-08-08 Completed [facility] 00:00:00 [facility] Tdap 2015-08-08 Completed [facility] 00:00:00 [facility] Tdap 2015-08-08 Completed [facility] 00:00:00 [facility] TDAP 2015-08-08 Completed [facility] 00:00:00 [facility] TDAP 2015-08-08 Completed [facility] 00:00:00 [facility] TDAP 2015-08-08 Completed [facility] 00:00:00 [facility] Tdap 2015-08-08 Completed [facility] 00:00:00 [facility] TDAP 2015-08-08 Completed [facility] 00:00:00 [facility] TDAP 2015-08-08 Completed [facility] 00:00:00 [facility] TDAP 2015-08-08 Completed [facility] 00:00:00 [facility] TDAP 2015-08-08 Completed [facility] 00:00:00 [facility] TDAP 2015-08-08 Completed [facility] 00:00:00 [facility] TDAP 2015-08-08 Completed [facility] 00:00:00 [facility] TDAP 2015-08-08 Completed [facility] 00:00:00 [facility] Tdap 2015-08-08 Completed [facility] 00:00:00 [facility] TDAP 2015-08-08 Completed [facility] 00:00:00 [facility] TDAP 2015-08-08 Completed [facility] 00:00:00 [facility] TDAP 2015-08-08 Completed [facility] 00:00:00 [facility] TDAP 2015-08-08 Completed [facility] 00:00:00 [facility] TDAP 2015-08-08 Completed [facility] 00:00:00 [facility] TDAP 2015-08-08 Completed [facility] 00:00:00 [facility] TDAP 2015-08-08 Completed [facility] 00:00:00 [facility] TDAP 2015-08-08 Completed [facility] 00:00:00 [facility] TDAP 2015-08-08 Completed [facility] 00:00:00 [facility] TDAP 2015-08-08 Completed [facility] 00:00:00 [facility] TDAP 2015-08-08 Completed [facility] 00:00:00 [facility] TDAP 2015-08-08 Completed [facility] 00:00:00 [facility] TDAP 2015-08-08 Completed [facility] 00:00:00 [facility] Tdap 2015-08-08 Completed [facility] 00[facility]00:00 [facility] TDAP 2015-08-08 Completed [facility] 00:00:00 [facility] TDAP 2015-08-08 Completed [facility] 00:00:00 [facility] TDAP 2015-08-08 Completed [facility] 00:00:00 [facility] Tdap 2015-08-08 Completed [facility] 00:00:00 [facility] Tdap 2015-08-08 Completed [facility] 00:00:00 [facility] Tdap 2015-08-08 Completed [facility] 00:00:00 [facility] Tdap 2015-08-08 Completed University 00:00:00 [facility] Vital Signs Vital Name Observation Time Observation Value Comments Source Systolic blood 2020-04-24 13:59:00 128 mm[Hg] [facility] of pressure [facility] Diastolic blood 2020-04-24 13:59:00 72 mm[Hg] Unive rsity of pressure [facility] Heart rate 2020-04-24 13:59:00 95 /min [facility] Body temperature 2020-04-24 13:59:00 36.83 [place] [facility] Respiratory rate 2020-04-24 13:59:00 18 /[facility] Oxygen saturation in 2020-04-24 13:59:00 98 /min [facility] Arterial blood by [facility] Pulse oximetry Branch Body weight 2020-04-24 12:00:[address] [facility] Systolic blood 2020-04-16 18:52:00 133 mm[Hg] [facility] pressure [facility] Diastolic blood 2020-04-16 18:52:00 77 mm[Hg] Unive rsity of pressure [facility] Heart rate 2020-04-16 18:52:00 90 /min [facility] Body temperature 2020-04-16 18:52:00 37.06 Breana [facility] ersity of [facility] Respiratory rate 2020-04-16 18:52:00 16 /min Univ ersity of [facility] Body height 2020-04-16 18:52:00 167.[address] [facility] Body weight 2020-04-16 18:52:00 89.132 kg [facility] BMI 2020-04-16 18:52:00 31.72 kg/m2 [facility] Systolic blood 2020-04-08 18:07:00 138 mm[Hg] [facility] pressure [facility] Diastolic blood 2020-04-08 18:07:00 76 mm[Hg] Unive rsity of pressure [facility] Heart rate 2020-04-08 18:07:00 94 /min [facility] Body temperature 2020-04-08 18:07:00 36.72 [place] [facility] Respiratory rate 2020-04-08 18:07:00 16 /min Univ [facility] Body height 2020-04-08 18:07:00 167.6 cm [facility] Body weight 2020-04-08 18:07:00 88.542 kg [facility] BMI 2020-04-08 18:07:00 31.51 kg/m2 [facility] Systolic blood 2020-03-20 19:06:00 138 mm[Hg] Univer sity of pressure [facility] Diastolic blood 2020-03-20 19:06:00 69 mm[Hg] Unive rsity of pressure [facility] Heart rate 2020-03-20 19:06:00 96 /min [facility] Body temperature 2020-03-20 19:06:00 36.44 [place] [facility] Respiratory rate 2020-03-20 19:06:00 16 /min Univ [facility] Body height 2020-03-20 19:06:00 167.6 cm [facility] Body weight 2020-03-20 19:06:00 87.227 kg [facility] BMI 2020-03-20 19:06:00 31.04 kg/m2 [facility] Systolic blood 2020-03-06 14:19:00 118 mm[Hg] Univer sity of pressure [facility] Diastolic blood 2020-03-06 14:19:00 69 mm[Hg] Unive rsity of pressure [facility] Heart rate 2020-03-06 14:19:00 90 /min [facility] Body temperature 2020-03-06 14:19:00 36.94 [place] [facility] Respiratory rate 2020-03-06 14:19:00 16 /min Univ [facility] Body height 2020-03-06 14:19:00 157.5 cm [facility] Body weight 2020-03-06 14:19:00 84.913 kg [facility] BMI 2020-03-06 14:19:00 34.24 kg/m2 [facility] Systolic blood 2020-02-18 19:36:00 111 mm[Hg] Univer sity of pressure [facility] Diastolic blood 2020-02-18 19:36:00 67 mm[Hg] Unive rsity of pressure [facility] Heart rate 2020-02-18 19:36:00 100 /min [facility] Body temperature 2020-02-18 19:36:00 37.17 [place] [facility] Respiratory rate 2020-02-18 19:36:00 16 /min Univ [facility] Body height 2020-02-18 19:36:00 167.6 cm [facility] Body weight 2020-02-18 19:36:00 84.46 kg [facility] BMI 2020-02-18 19:36:00 30.05 kg/m2 [facility] Systolic blood 2020-01-24 17:57:00 125 mm[Hg] Univer sity of pressure [facility] Diastolic blood 2020-01-24 17:57:00 77 mm[Hg] Unive rsity of pressure [facility] Heart rate 2020-01-24 17:57:00 84 /min [facility] Body temperature 2020-01-24 17:57:00 36.89 [place] [facility] Respiratory rate 2020-01-24 17:57:00 16 /min Univ [facility] Body height 2020-01-24 17:57:00 167.6 cm [facility] Body weight 2020-01-24 17:57:00 85.078 kg [facility] BMI 2020-01-24 17:57:00 30.27 kg/m2 [facility] Systolic blood 2019-12-24 15:15:00 131 mm[Hg] Univer sity of pressure [facility] Diastolic blood 2019-12-24 15:15:00 70 mm[Hg] Unive rsity of pressure [facility] Heart rate 2019-12-24 15:15:00 81 /min [facility] Body temperature 2019-12-24 15:15:00 36.78 [place] [facility] Respiratory rate 2019-12-24 15:15:00 16 /min Univ [facility] Body height 2019-12-24 15:15:00 167.6 cm [facility] Body weight 2019-12-24 15:15:00 79.861 kg [facility] [place] BMI 2019-12-24 15:15:00 28.42 kg/m2 [facility] Systolic blood 2019-12-03 18:13:00 134 mm[Hg] Univer sity of pressure [facility] Diastolic blood 2019-12-03 18:13:00 65 mm[Hg] Unive rsity of pressure [facility] Heart rate 2019-12-03 18:13:00 86 /min [facility] Body temperature 2019-12-03 18:13:00 36.56 [place] [facility] Respiratory rate 2019-12-03 18:13:00 16 /min Univ ersity of [facility] Body height 2019-12-03 18:13:00 165.1 cm [facility] [place] Body weight 2019-12-03 18:13:00 77.367 kg [facility] [place] BMI 2019-12-03 18:13:00 28.38 kg/m2 [facility] Systolic blood 2019-03-12 15:00:00 131 mm[Hg] Univer [facility]ity of pressure [facility] Diastolic blood 2019-03-12 15:00:00 76 mm[Hg] Unive rsity of pressure [facility] Heart rate 2019-03-12 15:00:00 99 /min [facility] [place] Body temperature 2019-03-12 15:00:00 36.56 [place] [facility] [place] Respiratory rate 2019-03-12 15:00:00 16 /min Univ ersity of [facility] Body height 2019-03-12 15:00:00 167.6 cm [facility] [place] Body weight 2019-03-12 15:00:00 87.091 kg [facility] BMI 2019-03-12 15:00:00 30.99 kg/m2 [facility] Procedures Procedure Date / Time Performing Clinician Source Performed CBC WITH DIFF 2020-04-24 09:44:00 Bri Norris [facility] VENOUS CORD GAS 2020-04-23 04:55:00 Latha Blakely [facility] HEPATITIS B SURFACE 2020-04-22 21:28:00 L[facility] ANTIGEN [facility] GALV ONLY - SYPHILIS 2020-04-22 21:28:00 Reddy Latha [facility] IGG/IGM [facility] HB ABO GROUPING 2020-04-22 20:53:00 Reddy Latha [facility] RHO (D) IMMUNE GLOBULIN 2020-04-22 20:53:00 Bri Norris [facility] COVID-19 (ID NOW RAPID 2020-04-22 18:37:00 Douglas Shah [facility] TESTING) [facility] NON-STRESS TEST 2020-04-16 19:49:50 Carmelita Dockery [facility] POCT URINALYSIS 2020-04-16 18:54:00 Shahnaz Franco [facility] POCT URINALYSIS 2020-04-08 00:00:00 Shahnaz Franco [facility] POCT URINALYSIS 2020-03-20 00:00:00 Shahnaz Franco [facility] POCT URINALYSIS 2020-03-06 00:00:00 Shahnaz Franco [facility] TDAP VACCINE, >11 YRS, 2020-02-18 20:02:34 [facility] 2020-02-18 00:00:00 Shahnaz Franco [facility] POCT URINALYSIS 2020-01-24 18:00:00 Shahnaz Franco [facility] POCT URINALYSIS 2019-12-24 15:16:00 Shahnaz Franco [facility] AUTHORIZATION TO RELEASE 2019-12-12 05:01:00 Doctor Unassigned, No [facility] PHI TO [facility] Name [facility] POCT URINALYSIS 2019-12-03 18:15:00 Shahnaz Franco [facility] POCT TEST 2019-12-03 18:15:00 Shahnaz Franco [facility] AUTHORIZATION FOR 2019-03-15 05:01:00 Doctor Unassigned, No Univ ersity [facility] RELEASE OF PHI Name Medical Branch POCT URINALYSIS W/O 2019-03-12 15:02:00 [facility] Encounters Start End Encounter Admission Attending Care Care Encounter Source Date/Time Date/Time Type Type Clinicians Facility Department ID 2021-06-05 Outpatient [facility] [id number] Univers 17:38:[address] [facility] 2021-09-02 2021-09-02 Outpatient [facility] [id number] [facility] 00:00:00 00:00:00 2021-08-26 2021-08-26 Outpatient [facility] [id number] [facility] 00:00:00 00:00:00 2021-08-24 2021-08-24 Outpatient [facility] [id number] [facility] 00:00:00 00:00:00 2020-09-26 2020-09-26 Haley Hassan [facility] [id number] Univers 00:00:00 00:00:00 Y HEALTH [id number] [facility] [id number] [id number] [facility] 113 Branch 2020-04-22 2020-04-24 [facility] ALEX Shah [id number] Univers 12:50:00 12:27:00 Encounter Douglas Rayray ESPINOZA [id number] ity [facility] [id number] Andrea as [id number] [facility] 038 Branch 2020-04-19 2020-04-19 Nurse ALEX Magana [id number] Univers 00:00:00 00:00:00 Triage Lila MENDESY [id number] it y [facility] [id number] Andrea as [id number] [facility] 019 Branch 2020-04-16 2020-04-16 Routine [place], [facility] [id number] Univers 13:27:07 13:42:07 Carmelita Romero SENIOR DATA MODELER 350.1.13.10 ity of Visit REGIONAL 4.2.7.2.686 Andrea as MATERNAL [id number] [facility] & CHILD [address] [place] [address] 2020-04-16 2020-04-16 Outpatient R JORDENLUIS FERNANDO, [facility] [id number] Univers 11:00:00 11:00:00 CARMELITA ity o [facility] 2020-04-16 2020-04-16 Outpatient R JORDENLUIS FERNANDO, [facility] [id number] Univers 11:00:00 11:00:00 CARMELITA ity o [facility] 2020-04-15 2020-04-15 Outpatient R SALVADOR [facility] [id number] -[id number] Univers 15:15:00 15:15:00 ADAMNDA ity o [facility] 2020-04-15 2020-04-15 [facility] [id number] Univers 15:15:00 15:15:00 ADAMNDA luchoyesi o [facility] 2020-04-09 2020-04-09 [facility]phone [facility] [id number] Univers 00:00:00 00:00:00 Roshunda R SENIOR DATA MODELER 350.1.13.10 ity of REGIONAL 4.2.7.2.686 Andrea as MATERNAL [id number] [facility] & [address] 2020-04-08 2020-04-08 Routine [facility] 1.2.840.114 [id number] Univers 12:56:19 13:25:59 Roshunda R SENIOR DATA MODELER 350.1.13.10 ity of Visit REGIONAL 4.2.7.2.686 Andrea as MATERNAL [id number] [facility] & CHILD [address] [place] [address] 2020-04-08 2020-04-08 Outpatient Corinne FRANCO, [facility] [id number] -20 Univers 13:00:00 13:00:00 ADAMNDJoel ityesi o [facility] 2020-04-08 2020-04-08 [facility] [id number] Univers 13:00:00 13:00:00 ROSHUNDA ity o [facility] 2020-04-02 2020-04-02 Outpatient Corinne FRANCO [facility] [id number] -20 Univers 12:45:00 12:45:00 ADAMNDJoel [id number] ity o f [facility] 2020-04-02 2020-04-02 Outpatient Corinne FRANCO [facility] [id number] Univers 12:45:00 12:45:00 ROSMADDYNDA ity o f [facility] 2020-04-01 2020-04-01 Telephone [facility] 1.2.633.227 [id number] Univers 00:00:00 00:00:00 Roshunda R SENIOR DATA MODELER 350.1.13.10 ity of REGIONAL 4.2.7.2.686 Andrea as MATERNAL [id number] Med ical & CHILD [address] [place] [address] 2020-03-20 2020-03-20 Routine [facility] 1.2.840.114 [id number] Univers 13:46:03 14:46:22 Roshunda R SENIOR DATA MODELER 350.1.13.10 ity of Visit REGIONAL 4.2.7.2.686 Andrea as MATERNAL [id number] Med ical & CHILD [address] [place] [address] 2020-03-20 2020-03-20 Outpatient Corinne FRANCO [facility] [id number] -[id number] Univers 14:00:00 14:00:00 SHAHNAZ [id number] ity o f [facility] 2020-03-20 2020-03-20 Outpatient Corinne FRANCO [facility] [id number] Univers 14:00:00 14:00:00 ROSHUNDA ity o f [facility] 2020-03-06 2020-03-06 Routine [facility] 1.2.840.114 [id number] Univers 09:06:15 09:39:44 Roshunda R SENIOR DATA MODELER 350.1.13.10 ity of Visit REGIONAL 4.2.7.2.686 Andrea as MATERNAL [id number] [facility] ical & CHILD [address] [place] [address] 2020-03-06 2020-03-06 Outpatient Corinne FRANCO [facility] [id number] -[id number] Univers 09:15:00 09:15:00 SHAHNAZ ity o f [facility] 2020-03-06 2020-03-06 Outpatient Corinne FRANCO [facility] [id number] Univers 09:15:00 09:15:00 ADAMNDA ityesi o f [facility] 2020-03-03 2020-03-03 Outpatient Corinne FRANCO [facility] [id number] -[id number] Univers 11:00:00 11:00:00 SHAHNAZ [id number] ityesi o f [facility] 2020-03-03 2020-03-03 Outpatient Corinne FRANCO [facility] [id number] Univers 11:00:00 11:00:00 ADAMNDA ity o [facility] 2020-02-18 2020-02-18 Routine [facility] 1.2.840.114 [id number] Univers 14:17:11 15:11:36 Shahnaz R SENIOR DATA MODELER 350.1.13.10 ity of Visit REGIONAL 4.2.7.2.686 Andrea as MATERNAL [id number] Med ical & CHILD [address] [place] [address] 2020-02-18 2020-02-18 Outpatient Corinne FRANCO [facility] [id number] -[id number] Univers 14:15:00 14:15:00 SHAHNAZ [id number] ity o [facility] 2020-02-18 2020-02-18 Outpatient Corinne FRANCO [facility] [id number] Univers 14:15:00 14:15:00 [address]DA ityesi o f [facility] 2020-02-14 2020-02-14 Outpatient Corinne FRANCO [facility] [id number] -20 Univers 15:45:00 15:45:00 ADAMNDJoel ity o [facility] 2020-02-14 2020-02-14 Outpatient Corinne FRANCO [facility] [id number] Univers 15:45:00 15:45:00 ADAMNDA ityesi o [facility] 2020-02-07 2020-02-07 Outpatient Corinne FRANCO [facility] [id number] -[id number] Univers 13:30:00 13:30:00 SHAHNAZ ity o [facility] 2020-02-07 2020-02-07 Outpatient Corinne FRANCO [facility] [id number] Univers 13:30:00 13:30:00 [address]DA ity o f [facility] 2020-01-28 2020-01-28 Outpatient R [facility] [id number] -20 Univers 13:15:00 13:15:[id number] [facility] 2020-01-28 2020-01-28 Outpatient R SALVADOR [facility] [id number] Univers 13:15:00 13:15:00 ADAMNDA ity o f [facility] 2020-01-24 2020-01-24 Routine [facility] 1.2.840.114 [id number] Univers 12:45:18 13:15:26 Rosmaddynda R SENIOR DATA MODELER 350.1.13.10 ity of Visit REGIONAL 4.2.7.2.686 Andrea as MATERNAL [id number] Med ical & CHILD [address] [place] [address] 2020-01-24 2020-01-24 Outpatient R SALVADOR [facility] [id number] -20 Univers 13:00:00 13:00:00 ADAMNDJoel [id number] ity o f [facility] 2020-01-24 2020-01-24 Outpatient R SALVADOR [facility] [id number] Univers 13:00:00 13:00:00 ADAMNDA ity o [facility] 2020-01-21 2020-01-21 Outpatient R SALVADOR [facility] [id number] -[id number] Univers 09:30:00 09:30:00 SHAHNAZ [id number] ity o [facility] 2020-01-21 2020-01-21 Outpatient R SALVADOR [facility] [id number] Univers 09:30:00 09:30:00 ADAMNDA ity o [facility] 2020-01-21 2020-01-21 Telephone [place] [facility] [id number] Univers 00:00:00 00:00:00 Rosmaddynda R SENIOR DATA MODELER 350.1.13.10 ity of REGIONAL 4.2.7.2.686 Andrea as MATERNAL [id number] [facility] ical & CHILD [address] [place] [address] 2020-01-01 2020-01-01 Outpatient R SALVADOR [facility] [id number] -20 Univers 12:45:00 12:45:00 AIDENJoel [id number] ity o f [facility] 2020-01-01 2020-01-01 [facility] [id number] Univers 12:45:00 12:45:00 [address]NDA ity o f [facility] 2019-12-24 2019-12-24 Routine [facility] 1.2.840.114 [id number] Univers 10:07:46 10:43:21 Rosmaddynda R SENIOR DATA MODELER 350.1.13.10 ity of Visit [facility] 4.2.7.2.686 Andrea as MATERNAL [id number] Med ical & CHILD [address] [place] [address] 2019-12-24 2019-12-24 [facility] [id number] -[id number] Univers 10:15:00 10:15:00 ADAMFROYLAN [id number] ity o [facility] 2019-12-24 2019-12-24 [facility] [id number] Univers 10:15:00 10:15:00 SHAHNAZ yepezy o [facility] 2019-12-20 2019-12-20 Telephone [facility] 1.2.700.995 [id number] Univers 00:00:00 00:00:00 Adamnda R SENIOR DATA MODELER 350.1.13.10 ity of [facility] 4.2.7.2.686 Andrea as MATERNAL [id number] [facility] & CHILD [address] [place] [address] 2019-12-12 2019-12-12 Abstract [facility] 1.2.840.114 [id number] Univers 00:00:00 00:00:00 Adamnda R SENIOR DATA MODELER 350.1.13.10 ity of [facility] 4.2.7.2.686 Andrea as MATERNAL [id number] [facility] & CHILD [address] [place] [address] 2019-12-12 2019-12-12 Orders Doctor JOHNSON 1.2.840.114 [id number] Univers 00:00:00 00:00:00 Only Unassigned, ALEXIS 350.1.13.10 ity of [place] [facility] 4.2.7.2.686 Andrea as [id number] [address] 2019-12-12 2019-12-12 Abstract [place] [facility] 1.2.840.114 [id number] Univers 00:00:00 00:00:00 Roshunda R SENIOR DATA MODELER 350.1.13.10 ity of REGIONAL 4.2.7.2.686 Andrea as MATERNAL [id number] [facility] ical & CHILD [address] [place] [address] 2019-12-11 2019-12-11 [employer] [place] [address], [facility] Us Room UN[facility]ERSIT 1 .2.840.114 [id number] Univers 12:52:18 14:25:09 Visit Douglas Shah Y HEALTH 350.1.13. 10 ity of CL[place] [id number] [address] 2019-12-11 2019-12-11 Outpatient R [facility] [id number] -20 Univers 13:00:00 13:00:00 ity [facility] 2019-12-11 2019-12-11 Outpatient P [facility] [id number] Univers 13:00:00 13:00:[address] [facility] 2019-12-05 2019-12-05 Telephone [place] [facility] 1.2.741.540 [id number] Univers 00:00:00 00:00:00 Roshunda R SENIOR DATA MODELER 350.1.13.10 ity of REGIONAL 4.2.7.2.686 Andrea as MATERNAL [id number] [facility] & [address] 2019-12-03 2019-12-03 Initial [place] [facility] 1.2.840.114 [id number] Univers 13:07:51 14:25:47 Roshunda R SENIOR DATA MODELER 350.1.13.10 ity of Visit REGIONAL 4.2.7.2.686 Andrea as MATERNAL [id number] [address] 2019-12-03 2019-12-03 Outpatient R SALVADOR [facility] [id number] -20 Univers 12:45:00 12:45:00 SHAHNAZ [id number] ity o f [facility] 2019-12-03 2019-12-03 [facility] [id number] Univers 12:45:00 12:45:00 [address]UNDA ity o [address] [facility] 2019-11-05 2019-11-05 Outpatient R SALVADOR [facility] [id number] -[id number] Univers 13:00:00 13:00:00 ADAMNDA [id number] ity o f [facility] 2019-11-05 2019-11-05 [facility] [id number] Univers 13:00:00 13:00:00 [address]DA ity o [address] [facility] 2019-10-31 2019-10-31 [place] [facility] 1.2.514.085 [id number] Univers 00:00:00 00:00:00 Roshunda R SENIOR DATA MODELER 350.1.13.10 ity of [facility] 4.2.7.2.686 Andrea as MATERNAL [id number] [facility] ical & CHILD [address] [place] [address] 2019-08-23 2019-08-23 [place] [facility] 1.2.540.318 [id number] Univers 00:00:00 00:00:00 Rosmaddynda R SENIOR DATA MODELER 350.1.13.10 ity of [facility] 4.2.7.2.686 Andrea as MATERNAL [id number] [facility] & [address] 2019-04-13 2019-04-13 [place] [facility] 1.2.978.583 [id number] Univers 00:00:00 00:00:00 Roshunda R SENIOR DATA MODELER 350.1.13.10 ity of [facility] 4.2.7.2.686 Andrea as MATERNAL [id number] [facility] ical & CHILD [address] [place] [address] 2019-03-15 2019-03-15 Orders Doctor ALEX 1.2.840.114 [id number] Univers 00:00:00 00:00:00 Only Unassigned, ALEXIS 350.1.13.10 [facility] 4.2.7.2.686 Andrea as [id number] [address] 2019-03-12 2019-03-12 Routine [facility] 1.2.840.114 [id number] Univers 09:44:19 10:32:14 Roshunda R SENIOR DATA MODELER 350.1.13.10 ity of Visit REGIONAL 4.2.7.2.686 Andrea as MATERNAL [id number] [facility] & CHILD [address] [place] [address] 2019-03-10 2019-03-10 Nurse ALEX Raya 1.2.840.114 [id number] Univers 00:00:00 00:00:00 Triage Ladonna ESPINOZA 350.1.13.10 i ty of [facility] 4.2.7.2.686 Andrea as [id number] [address] 2019-03-01 2019-03-01 Telephone [facility] 1.2.442.164 [id number] Univers 00:00:00 00:00:00 Rosnda R SENIOR DATA MODELER 350.1.13.10 ity of REGIONAL 4.2.7.2.686 Andrea as MATERNAL [id number] [facility] & [address] 2019-03-01 2019-03-01 Telephone [facility] 1.2.040.679 [id number] Univers 00:00:00 00:00:00 [facility]IOR DATA MODELER 350.1.13.10 ity of [facility] 4.2.7.2.686 Andrea as MATERNAL [id number] [address] Results Test Description Test Time Test [...] g/dL 31.6-35.1 L RDW-SD (test code = 70744-2) 41.1 fL 39-49.9 RDW-CV (test code = 788-0) 15.6 % 12-15.5 H PLT (test code = 777-3) See_Comment [Au tomated message] The system which ge nerated this result transmit steve reference range: 166 - 35 8 10*3/?L. The reference range was not used to interpret th is result as normal/abnormal . MPV (test code = 83048-1) 10.2 fL 9.5-12.9 NRBC/100 WBC (test code = See_Comment [ Automated message] The 9594307456) system which ge nerated this result transmit steve reference range: 0.0 - 10 .0 /100 WBCs. The reference r zahra was not used to interpr et this result as normal/abnor mal. NRBC x10^3 (test code = <0.01 See_Comment [Au tomated message] The 6618829232) system which ge nerated this result transmit steve reference range: 10*3/?L. The reference range was not u sed to interpret this result as normal/abnormal . GRAN MAT (NEUT) % (test code 62.9 % = 770-8) IMM GRAN % (test code = 2.60 % 4437844892) LYMPH % (test code = 736-9) 24.4 % MONO % (test code = 5905-5) 7.4 % EOS % (test code = 713-8) 1.8 % BASO % (test code = 706-2) 0.9 % GRAN MAT x10^3(ANC) (test 7.76 10*3/uL 1.88-7.09 H code = 2540284415) IMM GRAN x10^3 (test code = 0.32 10*3/uL 0-0.06 H 6242714103) LYMPH x10^3 (test code = 3.00 10*3/uL 1.32-3.29 731-0) MONO x10^3 (test code = 0.91 10*3/uL 0.33-0.92 742-7) EOS x10^3 (test code = 0.22 10*3/uL 0.03-0.39 711-2) BASO x10^3 (test code = 0.11 10*3/uL 0.01-0.07 H 704-7) Lab Interpretation (test Abnormal code = 63876-3) [facility] SY[facility]ILIS [id number] 13:17:00 Test Item Value Reference Range Interpretation Comments Syphilis IgG/IgM (test Non-reactive Non-reactive code = 87689-9) ADAL (test code = ADAL) Non-reactive - No serologic evidence of T. pallidum infection. Cannot exclude incubating or early syphilis. Submit a second specimen in 2-4 weeks if syphilis is clinically suspected. Equivocal - Further testing to follow. Reactive - Further testing to follow. Lab Interpretation (test Normal code = 04890-6) [facility]) IMMUNE [id number] 06:50:01 Test Item Value Reference Range Interpretation Comments RHIG CANDIDATE? No- see comment Patient i s not a (test code = candidate for R hIg- 5055) Patient is Rh Positive.Perfor med at [facility] Laboratory Services - [facility] Blood [address] [place] [address]36[address]Kxxa Free: [phone] A No. [id number] [facility] [id number] 05:16:00 Test Item Value Reference Range Interpretation Comments VENOUS BASE EXCESS, mEq/L CORD (test code = 5416288825) VENOUS PH, CORD (test 7.25-7.45 code = 5808177202) VENOUS PC02, CORD See_Comment [Automate d message] The (test code = system which ge nerated 5837065211) this result tra nsmitted reference range : 27 - 49 mmHg. The refer ence range was not used to interpret this result as normal/abnormal . VENOUS PO2, CORD (test See_Comment [Aut omated message] The code = 3989029036) system [facility] generated this result tra nsmitted reference range : 17 - 41 mmHg. The refer ence range was not used to interpret this result as normal/abnormal . VENOUS BICARBONATE, See_Comment QUES [Au tomated message] CORD (test code = The system which generated 9175838552) this result tra nsmitted reference range : 12 - 29 mEq/L. The refe rence range was not used to interpret this result as normal/abnormal . [facility] [id number] 05:14:00 Test Item Value Reference Range Interpretation Comments BASE EXCESS, CORD mEq/L (test code = 3161165341) AC PH, CORD (BEAKER) 7.18-7.38 (test code = 1107211135) PC02, CORD (test code See_Comment [Auto mated message] The = 9110089095) system which g enerated this result transmit steve reference range : 32 - 66 mmHg. The refer ence range was not used to interpret this result as normal/abnormal . PO2, CORD (test code See_Comment [Autom ated message] The = 9894879170) system which g enerated this result transmit steve reference range : 10 - 30 mmHg. The refer ence range was not used to interpret this result as normal/abnormal . BICARBONATE, CORD See_Comment [Automate d message] The (test code = system which ge nerated this 7945231942) result transmit steve reference range : 17 - 27 mEq/L. The refe rence range was not used to interpret this result as normal/abnormal . [facility] Center[facility]atitis B Surface [id number] 22:43:00 Test Item Value Reference Range Interpretation Comments HBsAg Semi-Quantitative (test code = Negative Negative 5195-3) [facility] CenterType and Screen - ONCE [id number] 22:39:56 Test Item Value Reference Range Interpretation Comments ABO & RH (test code O POSITIVE Performe d at [facility] = 20) Laboratory Serv [facility] Blood [facility]3 [address] [facility] [address]Vhml Free: [phone] A No. [id number] IAT (test code = Negative Performed a t [facility] 1185) Laboratory Serv [facility] Blood [facility]3 [facility] [address]Suys Free: [phone] A No. [id number] [facility] CenterCOVID[facility] (ID NOW RAPID TESTING)2020-04-22 19:02:00 Test Item Value Reference Range Interpretation Comments SARS-CoV-2 Rapid ID NOW Not Detected Not Detected (test code = 83320-0) ADAL (test code = ADAL) ID NOW COVID-19 Assay is an isothermal nucleic acid amplification test intended for the qualitative detection of nucleic acid from SARS-CoV-2 viral RNA in nasopharyngeal (FILLING MIXER) specimens. It is used under Emergency Use [...] indicated. Lab Interpretation Normal (test code = 15616-7) [facility] CenterFETAL NON-STRESS [id number] 19:50:42NST: cat 1, reactive/reassuring, no ctx, +accels, neg decls, moderate variability [facility] Center[facility] UR[facility] W SPECIFIC [id number] 18:54:00 Test Item Value Reference Range Interpretation [...] POCT U APPEAR (test code = 3267) [facility] URINALYSIS W SPECIFIC [id number] 18:07:00 Test Item Value Reference Range Interpretation [...] POCT U APPEAR (test code = 3267) [facility] URINALYSIS W SPECIFIC [id number] 18:07:00 Test Item Value Reference Range Interpretation [...] POCT U APPEAR (test code = 3267) [facility] URINALYSIS W SPECIFIC [id number] 18:07:00 Test Item Value Reference Range Interpretation [...] POCT U APPEAR (test code = 3267) [facility] URINALYSIS W SPECIFIC [id number] 18:07:00 Test Item Value Reference Range Interpretation [...] POCT U APPEAR (test code = 3267) [facility] URINALYSIS W SPECIFIC [id number] 19:07:00 Test Item Value Reference Range Interpretation [...] POCT U APPEAR (test code = 3267) [facility] URINALYSIS W SPECIFIC [id number] 19:07:00 Test Item Value Reference Range Interpretation [...] POCT U APPEAR (test code = 3267) [facility] URINALYSIS W SPECIFIC [id number] 19:07:00 Test Item Value Reference Range Interpretation [...] POCT U APPEAR (test code = 3267) [facility] URINALYSIS W SPECIFIC [id number] 19:07:00 Test Item Value Reference Range Interpretation [...] POCT U APPEAR (test code = 3267) [facility] URINALYSIS W SPECIFIC [id number] 19:07:00 Test Item Value Reference Range Interpretation [...] POCT U APPEAR (test code = 3267) [facility] URINALYSIS W SPECIFIC [id number] 14:21:00 Test Item Value Reference Range Interpretation [...] POCT U APPEAR (test code = 3267) [facility] URINALYSIS W SPECIFIC [id number] 19:42:00 Test Item Value Reference Range Interpretation [...] POCT U APPEAR (test code = 3267) [facility] URINALYSIS W SPECIFIC [id number] 19:42:00 Test Item Value Reference Range Interpretation [...] POCT U APPEAR (test code = 3267) [facility] URINALYSIS W SPECIFIC [id number] 18:00:00 Test Item Value Reference Range Interpretation [...] POCT U APPEAR (test code = 3267) [facility] URINALYSIS W SPECIFIC [id number] 18:00:00 Test Item Value Reference Range Interpretation [...] POCT U APPEAR (test code = 3267) [facility] URINALYSIS W SPECIFIC [id number] 15:16:00 Test Item Value Reference Range Interpretation [...] POCT U APPEAR (test code = 3267) [facility] URINALYSIS W SPECIFIC [id number] 15:16:00 Test Item Value Reference Range Interpretation [...] POCT U APPEAR (test code = 3267) [facility] URINALYSIS W SPECIFIC [id number] 15:16:00 Test Item Value Reference Range Interpretation [...] POCT U APPEAR (test code = 3267) [facility] URINALYSIS W SPECIFIC [id number] 15:16:00 Test Item Value Reference Range Interpretation [...] POCT U APPEAR (test code = 3267) [facility] URINALYSIS W SPECIFIC [id number] 18:15:00 Test Item Value Reference Range Interpretation [...] POCT U APPEAR (test code = 3267) [facility] [id number] 18:15:00 Test Item Value Reference Range Interpretation Comments POCT PREG (test code = 1605) Positive On board controls acceptable with C Yes Line (test code = 3574) POCT PREG LOT # (test code = 3575) POCT PREG TEST DATE (test code = 3576) [facility] URINALYSIS W SPECIFIC [id number] 18:15:00 Test Item Value Reference Range Interpretation [...] POCT U APPEAR (test code = 3267) [facility] [id number] 18:15:00 Test Item Value Reference Range Interpretation Comments POCT PREG (test code = 1605) Positive On board controls acceptable with C Yes Line (test code = 3574) POCT PREG LOT # (test code = 3575) POCT PREG TEST DATE (test code = 3576) [facility] W/O SPECIFIC [id number] 15:02:00 Test Item Value Reference Range Interpretation [...] code = 3257) . Negative - Negative [facility]
[2021-10-25] MEDS ORDERED: KETOROLAC 30 MG/ML INJ ONE (09:44)
--- NOTE | 2021-10-25 09:44 | EDPHYS ---
Physician Documentation [facility] Name: Richar Tariq Age: 21 yrs Sex: Female : 2000 Arrival Date: 10/25/2021 Time: 09:35 Bed Waiting Private MD: ED Physician Guillermo Davis HPI: 10/25 10:17 This 21 yrs old Female presents to ER via Ambulatory with complaints of sciatica. kb 10:17 The patient presents with pain that is acute. The symptoms are located in the low back. kb Onset: The symptoms/episode began/occurred 2 day(s) ago. The pain radiates to the left leg. Associated signs and symptoms: The patient has no apparent associated signs or symptoms. The problem was sustained possibly caused by using a weighted hulahoop. Modifying factors: The patient symptoms are alleviated by nothing, the patient symptoms are aggravated by any movement. Severity of symptoms: At their worst the symptoms were moderate, in the emergency department the symptoms are unchanged. The patient has not experienced similar symptoms in the past. The patient has been recently seen at the [facility] Emergency Department, yesterday, for similar complaints was seen in [facility] by Dr Rehman, but left prior to triage because there was a 6-8 hour wait. Pt reports left low back/upper buttock pain that radiates down left leg for 2 days. States she started using a weighted hulahoop for exercise prior to pain starting. Denies injury/trauma. Denies bowel/bladder incontinence or symptoms. Denies numbness, tingling, decreased sensation. No vertebral tenderness . Historical: - Allergies: 09:40 No Known Allergies; ww - Home Meds: 09:40 None [Active]; ww - PMHx: 09:40 gestational hypertension; Ovarian cyst; ww - PSHx: 09:40 None; ww - Immunization history:: Adult Immunizations up to date, Client reports receiving the 1st dose of the Covid vaccine, Flu vaccine is not up to date. - Social history:: Smoking status: Patient denies any tobacco usage or history of. ROS: 10:16 Constitutional: Negative for fever, chills, and weight loss. kb 10:16 Back: Positive for pain at rest, pain with movement. 10:16 All other systems are negative. Exam: 10:16 Constitutional: This is a well developed, well nourished patient who is awake, alert, kb and in no acute distress. Head/Face: Normocephalic, atraumatic. ENT: Moist Mucous membranes Cardiovascular: Regular rate and rhythm with a normal S1 and S2. No gallops, murmurs, or rubs. No pulse deficits. Respiratory: Respirations even and unlabored. No increased work of breathing. Talking in full sentences Skin: Warm, dry with normal turgor. Normal color. MS/ Extremity: Pulses equal, no cyanosis. Neurovascular intact. Full, normal range of motion. Neuro: Awake and alert, GCS 15, oriented to person, place, time, and situation. Moves all extremities. Normal gait. Psych: Awake, alert, with orientation to person, place and time. Behavior, mood, and affect are within normal limits. 10:16 Back: pain, that is moderate, of the left low back, ROM is painful, normal spinal alignment noted, CVA tenderness, is absent. 10:20 Neuro: Exam negative for acute changes. kb Vital Signs: 09:40 BP 135 / 77; Pulse 91; Resp 20; Temp 98.8; Pulse Ox 99% ; Weight 99.79 kg; Height 5 ft. ww 6 in. (167.64 cm); Pain 10/10; 09:40 Body Mass Index 35.51 (99.79 kg, 167.64 cm) ww MDM: 09:44 Patient medically screened. kb 10:16 Data reviewed: vital signs, nurses notes. Data interpreted: Pulse oximetry: on room air kb is 99 %. Interpretation: normal. Counseling: I had a detailed discussion with the patient and/or guardian regarding: the historical points, exam findings, and any diagnostic results supporting the discharge/admit diagnosis, the need for outpatient follow up, a family practitioner, to return to the emergency department if symptoms worsen or persist or if there are any questions or concerns that arise at home. Administered Medications: 09:46 Drug: Ketorolac 60 mg Route: IM; Site: left gluteus; ww Disposition: 11:14 Co-signature as Attending Physician, Guillermo Davis MD I agree with the assessment and kdr plan of care. Disposition Summary: 10/25/21 09:44 Discharge Ordered Location: Home Condition: Stable kb Diagnosis - Sciatica, left side kb Followup: kb - With: Emergency Department - When: As needed - Reason: Worsening of condition Followup: kb - With: Private Physician - When: 2 - 3 days - Reason: Recheck today's complaints, Continuance of care, Re-evaluation by your physician Discharge Instructions: - Discharge Summary Sheet kb - Sciatica, [id number] kb - Back Exercises, [id number] kb Forms: - Medication Reconciliation Form kb - Thank You Letter kb - Antibiotic Education kb - Prescription Opioid Use kb Prescriptions: - Prednisone 20 mg Oral Tablet - take 1 tablet by ORAL route once daily for 5 days; 5 tablet; Refills: 0, kb Product Selection Permitted - orphenadrine citrate 100 mg Oral Tablet Sustained Release - take 1 tablet by ORAL route 2 times per day As needed; 20 tablet; Refills: 0, kb Product Selection Permitted Signatures: Gisele Licona, MILITARY TECHNICIAN-C AURA-Guillermo Stringer MD MD kdr Wood, Whitney RN RN ww
--- NOTE | 2021-10-25 09:44 | ER ---
Nurse's Notes [facility] Name: Richar Tariq Age: 21 yrs Sex: Female : 2000 Arrival Date: 10/25/2021 Time: 09:35 Bed Waiting [facility] MD: Diagnosis: Sciatica, left side Presentation: 10/25 09:40 Chief complaint: Patient states: left low back/upper buttock pain that started 2 days ww ago after using a weighted hulahoop. Coronavirus screen: Vaccine status: Patient reports receiving the 1st dose of the Covid vaccine. Ebola Screen: Patient negative for fever greater than or equal to 101.5 degrees Fahrenheit, and additional compatible Ebola Virus Disease symptoms Patient denies exposure to infectious person. Patient denies travel to an Ebola-affected area in the 21 days before illness onset. No symptoms or risks identified at this time. Initial Sepsis Screen: Does the patient meet any 2 criteria? No. Patient's initial sepsis screen is negative. Does the patient have a suspected source of infection? No. Patient's initial sepsis screen is negative. Risk Assessment: Do you want to hurt yourself or someone else? Patient reports no desire to harm self or others. Onset of symptoms was October 23, 2021. 09:40 Acuity: KYRIE 4 ww 09:40 Method Of Arrival: Ambulatory ww Triage Assessment: 09:45 General: Appears uncomfortable, Behavior is calm, cooperative. Pain: Complains of pain ww in buttocks. Neuro: Level of Consciousness is awake, alert, obeys commands, Oriented to person, place, time, situation, Gait is steady, Speech is normal. Cardiovascular: Patient's skin is warm and dry. Historical: - Allergies: 09:40 No Known Allergies; ww - Home Meds: 09:40 None [Active]; ww - PMHx: 09:40 gestational hypertension; Ovarian cyst; ww - PSHx: 09:40 None; ww - Immunization history:: Adult Immunizations up to date, Client reports receiving the 1st dose of the Covid vaccine, Flu vaccine is not up to date. - Social history:: Smoking status: Patient denies any tobacco usage or history of. Screenin:02 Abuse screen: Denies threats or abuse. Denies injuries from another. Nutritional ww screening: No deficits noted. Tuberculosis screening: No symptoms or risk factors identified. Fall Risk None identified. Vital Signs: 09:40 BP 135 / 77; Pulse 91; Resp 20; Temp 98.8; Pulse Ox 99% ; Weight 99.79 kg; Height 5 ft. ww 6 in. (167.64 cm); Pain 10/10; 09:40 Body Mass Index 35.51 (99.79 kg, 167.64 cm) ww ED Course: 09:35 Patient arrived in ED. as 09:36 Gisele Licona FNP-C [facility] kb 09:36 Guillermo Davis MD is Attending Physician. kb 09:40 Arm band placed on right wrist. ww 09:43 Triage completed. ww 10:02 No provider procedures requiring assistance completed. Patient did not have IV access ww during this emergency room visit. Administered Medications: 09:46 Drug: Ketorolac 60 mg Route: IM; Site: left gluteus; ww Outcome: :44 Discharge ordered by . kb 10:02 Discharged to home ambulatory. ww 10:02 Condition: stable 10:02 Discharge instructions given to patient, Instructed on discharge instructions, follow up and referral plans. medication usage, safety practices, Demonstrated understanding of instructions, follow-up care, medications, Prescriptions given X 2. 10:02 Patient left the ED. ww Signatures: Gisele Licona FNP-C FNP-Ckb Martinez, Amelia as Wood, Whitney, RN RN ww
[2021-10-25 10:07] VITALS: BP 135/77; TEMP 98.8; O2SAT 99
== END 2021-10-25 10:02 | disposition home or self-care (01) ==
LOC: ER 09:26
DX: M54.32 Sciatica, left side (principal)
CPT/HCPCS: 96372; 99283

== ENCOUNTER 2021-12-19 19:42 | Emergency (ER) | payer OTHER ==
--- OUTSIDE RECORDS SUMMARY | 2021-12-19 19:47 | XMS REPORT | Continuity of Care Document ---
:[address] [facility] t Address [address] [place] [address] Care Team Providers Name Role Phone Corinne FRANCO Primary Care Physician Unavailable Joel DAWSON Attending Clinician Unavailable Prudence CHAVARRIA Attending Clinician Rayray Shah MD Attending Clinician Chino MEREDITH Attending Clinician Unavailable Heather Cole Attending Clinician Heather DOCKERY Attending Clinician Unavailable Corinne FRANCO Attending Clinician Unavailable Corinne Christie Attending Clinician Doctor Unassigned, Name Attending Clinician Unavailable 3, [facility] Room Attending Clinician Unavailable Elver MEREDITH, Camron Attending Clinician Unavailable Rayray Shah MD Admitting Clinician Payers Payer Name Policy Type Policy Number Effective Date Expiration Date [facility] [id number] 2020 [facility] MEDICAID 00:00:00 MEDICAID OF [place] [id number] 2019 00:00:00 Problems Condition Condition Condition Status Onset Resolution Last Treating Co mments Source Name Details Category Date Date Treatment Clinician Date Status Status Disease Active 2019- Univers post post 9-16 ity of vacuum-ass vacuum[place] is[place] isted 00 Medical vaginal vaginal Branch delivery delivery Anemia, Anemia, Disease Active 2020-0 Univers 9-16 it y of 00:00: [place] [address] Medical Branch History of History of Disease Active 2019- U nivers asthma asthma 9-16 ity of 00:00: [place] [facility] 39 weeks 39 weeks Disease Active 2020-0 Unive rs gestation gestation 9-15 ity of of of 00:00: [place] 00 [facility] Need for Need for Disease Active Unive [...] Univers weight weight 4-27 ity of 00:00: [place] 00 Medical Branch GBS (group GBS (group Disease Active Overview : Univers B B 8-07 Address ity of 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 [place] cus cus 00 and Medical carrier), carrier), Delivery Br anch +RV +RV culture, culture, currently currently Short Short Disease Active Univers interval interval 7-09 ity of between between 00:00: [place] pregnancie pregnancie 00 Md dical s s Branch affecting affecting in second in second trimester, trimester, antepartum antepartum Blunt Blunt Disease Active Univers trauma to trauma to 7-09 ity of abdomen, abdomen, 00:00: [place] initial initial 00 Medical encounter encounter Bran ch Anemia of Anemia of Disease Active Uni vers mother in mother in 6-03 ity of , , 00:[place] antepartum antepartum 00 Md dical Branch Late Late Disease Active Univers 4-25 ity of care care 00:00: [place] affecting affecting 00 [facility] Bran ch in second in second trimester trimester Limited Limited Disease Active Univers 4-25 ity of care in care in 00:00: [place] second second 00 Medical trimester trimester Bran ch Candidiasi Candidiasi Disease Active U nivers s of vulva s of vulva 4-25 it y of and vagina and vagina 00:[place] [facility] Chlamydia Chlamydia Disease Active Uni vers 2-21 ity of 00:00: [address] Multiparit Multiparit Disease Active U nivers y y 1-18 ity of 00:00: [address] Teen Teen Disease Active Univers parent parent 7-05 ity of 00:00: [address] Single Single Disease Active Univers live live 7-05 it y of 00:00: [address] Family Family Disease Active 2016-08 Univers history of history of 1-13 it y of Down Down 00:00: [place] syndrome [facility] Obesity in Obesity in Disease Active 2016-08 U nivers 1-13 ity of 00:00: [address] Family Family Disease Active 2016-08 Univers history of history of 1-13 it y of Down Down 00:00: [place] syndrome syndrome 00 [facility] History of History of Disease Active 2016-08 U nivers spontaneou spontaneou 1-13 it y of s s 00:00: [place] , , [facility] currently currently Bran ch High risk High risk Disease Active Uni vers , , 7-14 [place] y of ante[place] [address] [place] [address] Allergies, Adverse Reactions, Alerts Allergy Allergy Status Severity Reaction(s) Onset Inactive Treating Comm ents Source Name Type Date Date Clinician NO KNOWN Drug Active Univers ALLERGIE Class ity of S [facility] Social History Social Habit Start Date Stop Date Quantity Comments Source ASSERTION 2019-08-07 University of 00:00:00 [facility] Exposure to Not sure [facility] SARS-CoV-2 [facility] (event) Branch Sex Assigned At Universit y of [facility] Tobacco use and 2020-04-23 2020-04-23 Never used Universit y of exposure 00:00:00 00:00:00 [facility] Alcohol intake 2020-04-23 2020-04-23 Current University 00:00:00 00:00:00 non-drinker of [facility] alcohol Branch (finding) Smoking Status Start Date Stop Date Source Never smoker [facility] Medications Ordered Filled Start Stop Current Ordering Indication Dosage Frequency Signature Comments Components Source Medication Medication Date Date Medication? Clinician (SIG) Name Name ascorbic 2020-0 Yes 500mg 500 mg, Unive rs acid 04-24 Oral, BID, ity of (vitamin C) 13:00: First dose [place] (VITAMIN C) 00 on [facility] tablet 500 04/24/20 at [facility] mg 0800, Until Discontinu ed, Routine ferrous 2020-0 Yes 325mg 325 mg, Univer s sulfate 04-24 Oral, BID, ity of tablet 325 13:00: First dose [place] mg 00 on [facility] Medical 04/24/20 at Branch 0800, Until Discontinu ed, Routine ferrous 2020-0 2020- No 325mg Take 325 Univ ers sulfate 04-24 09-17 mg by ity of (IRON) 325 12:44: 00:00 mouth 3 [place] as mg (65 mg 16 :00 (three) Medical iron) times Branch tablet daily with meals. docusate 2020-0 Yes [id number] 240mg Take 1 U nivers calcium 240 -17 capsule by it y of mg capsule 00:00: mouth [place] 00 daily as Medical needed for Branch Constipati on. ibuprofen 2020-0 Yes [id number] 600mg Take 1 Univers 600 mg 9-17 tablet by ity of tablet 00:00: mouth [place] 00 every 6 Medical (six) Branch hours as needed (Pain). Take with food or milk. Iron Fum & 2020-0 Yes [id number] 1{capsu Take 1 Univers P-FA-Vit B 04-24 le} capsule by ity of & C No.9 00:00: mouth [place] (INTEGRA 00 daily. Medical PLUS) 125 Branch mg iron- 1 mg Cap docusate 2020-0 Yes [id number] 240mg Take 1 U nivers calcium 240 -17 capsule by it y of mg capsule 00:00: mouth [place] 00 daily as Medical needed for Branch Constipati on. ibuprofen 2020-0 Yes [id number] 600mg Take 1 Univers 600 mg 9-17 tablet by ity of tablet 00:00: mouth [place] 00 every 6 Medical (six) Branch hours as needed (Pain). Take with food or milk. Iron Fum & 2020-0 Yes [id number] 1{capsu Take 1 Univers P-FA-Vit B 04-24 [...] [place] E)) 04 Starting Medical chewable [facility] Branch tablet 160 04/23/20 at mg 0142, Until Discontinu ed, Routine, Gas ibuprofen 2020-0 Yes 600mg 600 mg, Univ ers (IBU) 04-23 Oral, ity of tablet 600 06:42: Q6HPRN, [place] mg 03 Starting Medical Wed Branch 04/23/20 at 0142, Until Discontinu ed, Routine, Pain (scale 4-6) acetaminoph 2020-0 Yes 650mg 650 mg, Un rosa en 04-23 Oral, ity of (TYLENOL) 06:42: Q6HPRN, [place] tablet 650 03 Starting Medic al mg [facility] Branch 04/23/20 at 0142, Until Discontinu ed, [...] IV Push, ity of (PF)) 06:42: Q8HPRN, [place] injection 4 03 Starting Medi taylor mg Wed Branch 04/23/20 at 0142, Until Discontinu ed, Routine, Nausea and Vomiting (N/V) docusate 2020-0 Yes 240mg 240 mg, Unive rs calcium 04-23 Oral, ity of (SURFAK) 06:42: QDAILYPRN, [place] capsule 240 03 Starting Medi taylor mg Wed Branch 04/23/20 at 0142, Until Discontinu ed, Routine, Constipati on magnesium 2019-0 Yes 30mL 30 mL, Univer s hydroxide 04-23 Oral, ity of (MILK OF 06:42: QDAILYPRN, [place] MAGNESIA) 03 Starting Medica l 400 mg/5 mL Wed Branch suspension 04/23/20 at 30 mL 0142, Until Discontinu ed, Routine, Constipati on benzocaine- 2019-0 Yes Topical, Un [place] menthol 04-23 PRN, ity of (DERMOPLAST 06:42: Starting [place] ) 20-0.5 % 03 Wed Medical topical 04/23/20 at Branch spray 0142, Until Discontinu ed, Routine, Perineum discomfort human 0 Yes .5mL 0.5 mL, Univers papillomav 04-23 Intramuscu ity of vac,9-heladio(P 06:42: lar, [place] F) 03 ONCE-PRIOR Medical (GARDASIL-9 TO Branch ) syringe DISCHARGE, 0.5 mL 1 dose, Starting 04/23/20 at 0142, Until Discontinu ed, Routine, Give vaccine prior to discharge amnioinfusi 0 2020- No 1000mL at 750 U nivers [...] until the liter is complete.& nbsp;&nbsp ;Notify [facility] if uterine resting tone exceeds 25 mmHg at any time during the amnioinfus ion. Obst etrics (KALYAN) Aminoinfus ion Orders
lactated 2019-0 2020- No 500mL at 999 Unive rs [...] , Starting Branch 04/22/20 at 1600, Until Tue04/23/20 at 0142, Routine sodium 2020-0 2020- No 30mL 30 mL, Univers citrate-cit 04-22 Oral, ity of sachin acid 20:49: 21:53 PRE-PROCED [place] (BICITRA) 38 :00 URE ONCE, Medic al 500-334 1 dose, Branch mg/5 mL Starting solution 30 Tue mL 04/22/20 at 1549, Until Discontinu ed, Routine, Surgery/Pr ocedure ferrous 2020-0 Yes [id number] 325mg Take 1 Un [place] sulfate 325 - tablet by ity of mg (65 mg 00:00: mouth 2 [place] iron) 00 (two) Medical tablet times Branch daily. ascorbic 2020-0 Yes [id number] 500mg Take 1 U nivers acid, - tablet by ity of vitamin C, 00:00: mouth 3 [place] 500 mg 00 (three) Medical tablet times Branch daily. ferrous 2020-0 Yes [id number] 325mg Take 1 Un [place] sulfate 325 9-02 tablet by ity of mg (65 mg 00:00: mouth 2 [place] iron) 00 (two) Medical tablet times Branch daily. ascorbic 2020-0 Yes [id number] 500mg Take 1 U nivers acid, 9- tablet by ity of vitamin C, 00:00: mouth 3 [place] 500 mg 00 (three) Medical tablet times Branch daily. ferrous 2020-0 Yes [id number] 325mg Take 1 Un [place] sulfate 325 9-02 tablet by ity of mg (65 mg 00:00: mouth 2 [place] iron) 00 (two) Medical tablet times Branch daily. ascorbic 2020-0 Yes [id number] 500mg Take 1 U nivers acid, 9-02 tablet by ity of vitamin C, 00:00: mouth 3 [place] 500 mg 00 (three) Medical tablet times Branch daily. ferrous 2020-0 Yes [id number] 325mg Take 1 Un [place] sulfate 325 9-02 tablet by ity of mg (65 mg 00:00: mouth 2 [place] iron) 00 (two) Medical tablet times Branch daily. ascorbic 2020-0 Yes [id number] 500mg Take 1 U nivers acid, 9-02 tablet by ity of vitamin C, 00:00: mouth 3 [place] 500 mg 00 (three) Medical tablet times Branch daily. ferrous 2020-0 Yes [id number] 325mg Take 1 [place] sulfate 325 9-02 tablet by ity of mg (65 mg 00:00: mouth 2 [place] iron) 00 (two) Medical tablet times Branch daily. ascorbic 2020-0 Yes [id number] 500mg Take 1 U nivers acid, 9-02 tablet by ity of vitamin C, 00:00: mouth 3 [place] 500 mg 00 (three) Medical tablet times Branch daily. ferrous 2020-0 Yes [id number] 325mg Take 1 Un [place] sulfate 325 9-02 tablet by ity of mg (65 mg 00:00: mouth 2 [place] iron) 00 (two) Medical tablet times Branch daily. ascorbic 2020-0 Yes [id number] 500mg Take 1 U nivers acid, 9-02 tablet by ity of vitamin C, 00:00: mouth 3 [place] 500 mg 00 (three) Medical tablet times Branch daily. ferrous 2020-0 Yes [id number] 325mg Take 1 Un [place] sulfate 325 9-02 tablet by ity of mg (65 mg 00:00: mouth 2 [place] iron) 00 (two) Medical tablet times Branch daily. ascorbic 2020-0 Yes [id number] 500mg Take 1 U nivers acid, 9-02 tablet by ity of vitamin C, 00:00: mouth 3 [place] 500 mg 00 (three) Medical tablet times Branch daily. ferrous 2020-0 2020- No [id number] 325mg Take 1 U nivers sulfate 325 -09 16- tablet by it y of mg (65 mg 00:00: 00:00 mouth 2 [place] iron) 00 :00 (two) Medical tablet times Branch daily. ascorbic 2020-0 2020- No [id number] 500mg Take 1 Univers acid, 04-09 tablet by ity of vitamin C, 00:00: 00:00 mouth 3 [place] 500 mg 00 :00 (three) Medical tablet times Branch daily. ampicillin 2020-0 2020- No [id number] 500mg Take 1 Univers 500 mg 4-29 05-10 capsule by ity of capsule 00:00: 04:59 mouth [place] 00 :00 every 6 Medical (six) Branch hours for 10 days. ampicillin 2020-0 2020- No [id number] 500mg Take 1 Univers 500 mg 4-29 05-10 capsule by ity of capsule 00:00: 04:59 mouth [place] 00 :00 every 6 Medical (six) Branch hours for 10 days. ampicillin 2020-0 2020- No [id number] 500mg Take 1 Univers 500 mg 4-29 05-10 capsule by ity of capsule 00:00: 04:59 mouth [place] 00 :00 every 6 Medical (six) Branch hours for 10 days. ampicillin 2020-0 2020- No [id number] 500mg Take 1 Univers 500 mg 4-29 05-10 capsule by ity of capsule 00:00: 04:59 mouth [place] 00 :00 every 6 Medical (six) Branch hours for 10 days. ampicillin 2020-0 2020- No [id number] 500mg Take 1 Univers 500 mg 4-29 05-10 capsule by ity of capsule 00:00: 04:59 mouth [place] 00 :00 every 6 Medical (six) Branch hours for 10 days. ampicillin 2020-0 2020- No [id number] 500mg Take 1 Univers 500 mg 4-29 [...] Branch tablet daily with meals. 2020-0 Yes [id number] 1{packe Take 1 Univers vit 4-27 t} Packet by ity of 33-iron-fol 00:00: mouth [place] ic-dha 00 daily. Medical (SELECT-OB Branch + DHA) 29 mg iron-1 mg -250 mg combo pack 2020-0 Yes [id number] 1{packe Take 1 Univers vit 4-27 t} Packet by ity of 33-iron-fol 00:00: mouth [place] ic-dha 00 daily. Medical (SELECT-OB Branch + DHA) 29 mg iron-1 mg -250 mg combo pack 2020-0 Yes [id number] 1{packe Take 1 Univers vit 4-27 t} Packet by ity of 33-iron-fol 00:00: mouth [place] ic-dha 00 daily. Medical (SELECT-OB Branch + DHA) 29 mg iron-1 mg -250 mg combo pack 2020-0 Yes [id number] 1{packe Take 1 Univers vit 4-27 t} Packet by ity of 33-iron-fol 00:00: mouth [place] ic-dha 00 daily. Medical (SELECT-OB Branch + DHA) 29 mg iron-1 mg -250 mg combo pack 2020-0 Yes [id number] 1{packe Take 1 Univers vit 4-27 t} Packet by ity of 33-iron-fol 00:00: mouth [place] ic-dha 00 daily. Medical (SELECT-OB Branch + DHA) 29 mg iron-1 mg -250 mg combo pack 2020-0 Yes [id number] 1{packe Take 1 Univers vit 4-27 t} Packet by ity of 33-iron-fol 00:00: mouth [place] ic-dha 00 daily. Medical (SELECT-OB Branch + DHA) 29 mg iron-1 mg -250 mg combo pack 2020-0 Yes [id number] 1{packe Take 1 Univers vit 4-27 t} Packet by ity of 33-iron-fol 00:00: mouth [place] ic-dha 00 daily. Medical (SELECT-OB Branch + DHA) 29 mg iron-1 mg -250 mg combo pack 2020-0 Yes [id number] 1{packe Take 1 Univers vit 4-27 t} Packet by ity of 33-iron-fol 00:00: mouth [place] ic-dha 00 daily. Medical (SELECT-OB Branch + DHA) 29 mg iron-1 mg -250 mg combo pack 2020-0 Yes [id number] 1{packe Take 1 Univers vit 4-27 t} Packet by ity of 33-iron-fol 00:00: mouth [place] ic-dha 00 daily. Medical (SELECT-OB Branch + DHA) 29 mg iron-1 mg -250 mg combo pack 2020-0 Yes [id number] 1{packe Take 1 Univers vit 4-27 t} Packet by ity of 33-iron-fol 00:00: mouth [place] ic-dha 00 daily. Medical (SELECT-OB Branch + DHA) 29 mg iron-1 mg -250 mg combo pack 2020-0 Yes [id number] 1{packe Take 1 Univers vit 4-27 t} Packet by ity of 33-iron-fol 00:00: mouth [place] ic-dha 00 daily. Medical (SELECT-OB Branch + DHA) 29 mg iron-1 mg -250 mg combo pack 2020-0 Yes [id number] 1{packe Take 1 Univers vit 4-27 t} Packet by ity of 33-iron-fol 00:00: mouth [place] ic-dha 00 daily. Medical (SELECT-OB Branch + DHA) 29 mg iron-1 mg -250 mg combo pack 2020-0 Yes [id number] 1{packe Take 1 Univers vit 4-27 t} Packet by ity of 33-iron-fol 00:00: mouth [place] ic-dha 00 daily. Medical (SELECT-OB Branch + DHA) 29 mg iron-1 mg -250 mg combo pack 2020-0 Yes [id number] 1{packe Take 1 Univers vit 4-27 t} Packet by ity of 33-iron-fol 00:00: mouth [place] ic-dha 00 daily. Medical (SELECT-OB Branch + DHA) 29 mg iron-1 mg -250 mg combo pack 2020-0 Yes [id number] 1{packe Take 1 Univers vit 4-27 t} Packet by ity of 33-iron-fol 00:00: mouth [place] ic-dha 00 daily. Medical (SELECT-OB Branch + DHA) 29 mg iron-1 mg -250 mg combo pack 2020-0 Yes [id number] 1{packe Take 1 Univers vit 4-27 t} Packet by ity of 33-iron-fol 00:00: mouth [place] ic-dha 00 daily. Medical (SELECT-OB Branch + DHA) 29 mg iron-1 mg -250 mg combo pack 2020-0 Yes [id number] 1{packe Take 1 Univers vit 4-27 t} Packet by ity of 33-iron-fol 00:00: mouth [place] ic-dha 00 daily. Medical (SELECT-OB Branch + DHA) 29 mg iron-1 mg -250 mg combo pack 2020-0 Yes [id number] 1{packe Take 1 Univers vit 4-27 t} Packet by ity of 33-iron-fol 00:00: mouth [place] ic-dha 00 daily. Medical (SELECT-OB Branch + DHA) 29 mg iron-1 mg -250 mg combo pack 2020-0 Yes [id number] 1{packe Take 1 Univers vit 4-27 t} Packet by ity of 33-iron-fol 00:00: mouth [place] ic-dha 00 daily. Medical (SELECT-OB Branch + DHA) 29 mg iron-1 mg -250 mg combo pack 2020-0 Yes [id number] 1{packe Take 1 Univers vit 4-27 t} Packet by ity of 33-iron-fol 00:00: mouth [place] ic-dha 00 daily. Medical (SELECT-OB Branch + DHA) 29 mg iron-1 mg -250 mg combo pack 2020-0 Yes [id number] 1{packe Take 1 Univers vit 4-27 t} Packet by ity of 33-iron-fol 00:00: mouth [place] ic-dha 00 daily. Medical (SELECT-OB Branch + DHA) 29 mg iron-1 mg -250 mg combo pack 2020-0 Yes [id number] 1{packe Take 1 Univers vit 4-27 t} Packet by ity of 33-iron-fol 00:00: mouth [place] ic-dha 00 daily. Medical (SELECT-OB Branch + DHA) 29 mg iron-1 mg -250 mg combo pack 2020-0 Yes [id number] 1{packe Take 1 Univers vit 4-27 t} Packet by ity of 33-iron-fol 00:00: mouth [place] ic-dha 00 daily. Medical (SELECT-OB Branch + DHA) 29 mg iron-1 mg -250 mg combo pack 2020-0 Yes [id number] 1{packe Take 1 Univers vit 4-27 t} Packet by ity of 33-iron-fol 00:00: mouth [place] ic-dha 00 daily. Medical (SELECT-OB Branch + DHA) 29 mg iron-1 mg -250 mg combo pack 2020-0 Yes [id number] 1{packe Take 1 Univers vit 4-27 t} Packet by ity of 33-iron-fol 00:00: mouth [place] ic-dha 00 daily. Medical (SELECT-OB Branch + DHA) 29 mg iron-1 mg -250 mg combo pack 2020-0 Yes [id number] 1{packe Take 1 Univers vit 4-27 t} Packet by ity of 33-iron-fol 00:00: mouth [place] ic-dha 00 daily. Medical (SELECT-OB Branch + DHA) 29 mg iron-1 mg -250 mg combo pack 2020-0 Yes [id number] 1{packe Take 1 Univers vit 4-27 t} Packet by ity of 33-iron-fol 00:00: mouth [place] ic-dha 00 daily. Medical (SELECT-OB Branch + DHA) 29 mg iron-1 mg -250 mg combo pack 2020-0 Yes [id number] 1{packe Take 1 Univers vit 4-27 t} Packet by ity of 33-iron-fol 00:00: mouth [place] ic-dha 00 daily. Medical (SELECT-OB Branch + DHA) 29 mg iron-1 mg -250 mg combo pack 2020-0 Yes [id number] 1{packe Take 1 Univers vit 4-27 t} Packet by ity of 33-iron-fol 00:00: mouth [place] ic-dha 00 daily. Medical (SELECT-OB Branch + DHA) 29 mg iron-1 mg -250 mg combo pack 2020-0 Yes [id number] 1{packe Take 1 Univers vit 4-27 t} Packet by ity of 33-iron-fol 00:00: mouth [place] ic-dha 00 daily. Medical (SELECT-OB Branch + DHA) 29 mg iron-1 mg -250 mg combo pack 2020-0 Yes [id number] 1{packe Take 1 Univers vit 4-27 t} Packet by ity of 33-iron-fol 00:00: mouth [place] ic-dha 00 daily. Medical (SELECT-OB Branch + DHA) 29 mg iron-1 mg -250 mg combo pack 2020-0 Yes [id number] 1{packe Take 1 Univers vit 4-27 t} Packet by ity of 33-iron-fol 00:00: mouth [place] ic-dha 00 daily. Medical (SELECT-OB Branch + DHA) 29 mg iron-1 mg -250 mg combo pack 2020-0 Yes [id number] 1{packe Take 1 Univers vit 4-27 t} Packet by ity of 33-iron-fol 00:00: mouth [place] ic-dha 00 daily. Medical (SELECT-OB Branch + DHA) 29 mg iron-1 mg -250 mg combo pack 2020-0 Yes [id number] 1{packe Take 1 Univers vit 4-27 t} Packet by ity of 33-iron-fol 00:00: mouth [place] ic-dha 00 daily. Medical ([facility] Branch + DHA) 29 mg iron-1 mg -250 mg combo pack 2020-0 Yes [id number] 1{packe Take 1 Univers vit 4-27 t} Packet by ity of 33-iron-fol 00:00: mouth [place] ic-dha 00 daily. Medical ([facility]-OB Branch + DHA) 29 mg iron-1 mg -250 mg combo pack 2020-0 Yes [id number] 1{packe Take 1 Univers vit 4-27 t} Packet by ity of 33-iron-fol 00:00: mouth [place] ic-dha 00 daily. Medical [facility] 29 mg iron-1 mg -250 mg combo pack 2020-0 Yes [id number] 1{packe Take 1 Univers vit 4-27 t} Packet by ity of 33-iron-fol 00:00: mouth [place] ic-dha 00 daily. Medical [facility] 29 mg iron-1 mg -250 mg combo pack 2020-0 Yes [id number] 1{packe Take 1 Univers vit 4-27 t} Packet by ity of 33-iron-fol 00:00: mouth [place] ic-dha 00 daily. Medical [facility] 29 mg iron-1 mg -250 mg combo pack 0 2020- No [id number] 1{packe Take 1 Univers vit 4-27 09-17 t} Packet by ity of 33-iron-fol 00:00: 00:00 [place] ic-dha 00 :00 daily. Medical [facility] 29 mg iron-1 mg -250 mg combo pack Iron, Cbn & 2019-0 Yes [id number] 1{tbl} Take 1 Univers Gluc-FA-B12 6-03 tablet by ity of -C-DSS 00:00: mouth [place] (FERRALET 00 daily. Medical 90 Branch DUAL-IRON DELIVERY) 90-1-12-50 mg-mg-mcg-m g per tablet Iron, Cbn & 2019-0 Yes [id number] 1{tbl} Take 1 Univers Gluc-FA-B12 6-03 tablet by ity of -C-DSS 00:00: mouth [place] (FERRALET [address] DUAL-IRON DELIVERY) 90-1-12-50 mg-mg-mcg-m g per tablet Iron, Cbn & 2019-0 Yes [id number] 1{tbl} Take 1 Univers Gluc-FA-B12 6-03 tablet by ity of -C-DSS 00:00: mouth [place] (FERRALET [address] DUAL-IRON DELIVERY) 90-1-12-50 mg-mg-mcg-m g per tablet Iron, Cbn & 2019-0 Yes [id number] 1{tbl} Take 1 Univers Gluc-FA-B12 6-03 tablet by ity of -C-DSS 00:00: mouth [place] (FERRALET [address] DUAL-IRON DELIVERY) 90-1-12-50 mg-mg-mcg-m g per tablet Iron, Cbn & 2019-0 Yes [id number] 1{tbl} Take 1 Univers Gluc-FA-B12 6-03 tablet by ity of -C-DSS 00:00: mouth [place] (FERRALET [address] DUAL-IRON DELIVERY) 90-1-12-50 mg-mg-mcg-m g per tablet Iron, Cbn & 2019-0 Yes [id number] 1{tbl} Take 1 Univers Gluc-FA-B12 6-03 tablet by ity of -C-DSS 00:00: mouth [place] (FERRALET [address] DUAL-IRON DELIVERY) 90-1-12-50 mg-mg-mcg-m g per tablet Iron, Cbn & 2019-0 Yes [id number] 1{tbl} Take 1 Univers Gluc-FA-B12 6-03 tablet by ity of -C-DSS 00:00: mouth [place] (FERRALET [address] DUAL-IRON DELIVERY) 90-1-12-50 mg-mg-mcg-m g per tablet Iron, Cbn & 2019-0 Yes [id number] 1{tbl} Take 1 Univers Gluc-FA-B12 6-03 tablet by ity of -C-DSS 00:00: mouth [place] (FERRALET [address] DUAL-IRON DELIVERY) 90-1-12-50 mg-mg-mcg-m g per tablet Iron, Cbn & 2019-0 2020- No [id number] 1{tbl} Take 1 Univers Gluc-FA-B12 6-10 09-27 tablet by it y of -C-DSS 00:00: 00:00 mouth [place] (FERRALET 00 :00 daily. Medical 90 Branch DUAL-IRON DELIVERY) 90-1-12-50 mg-mg-mcg-m g per tablet Iron, Cbn & 2020- No [id number] 1{tbl} Take 1 Univers Gluc-FA-B12 6-10 09-27 tablet by it y of -C-DSS 00:00: 00:00 mouth [place] (FERRALET 00 :00 daily. Medical 90 Branch DUAL-IRON DELIVERY) 90-1-12-50 mg-mg-mcg-m g per tablet acetaminoph Yes [id number] 1{capsu Take 1 Univers en-caff-but 5-31 le} capsule by it y of albital 00:00: mouth [place] (ESGIC) per 00 every 4 Medic al capsule (four) Branch hours as needed for Headache. acetaminoph Yes [id number] 1{capsu Take 1 Univers en-caff-but 5-31 le} capsule by it y of albital 00:00: mouth [place] (ESGIC) per 00 every 4 Medic al capsule (four) Branch hours as needed for Headache. acetaminoph Yes [id number] 1{capsu Take 1 Univers en-caff-but 5-31 le} capsule by it y of albital 00:00: mouth [place] (ESGIC) per 00 every 4 Medic al capsule (four) Branch hours as needed for Headache. acetaminoph Yes [id number] 1{capsu Take 1 Univers en-caff-but 5-31 le} capsule by it y of albital 00:00: mouth [place] (ESGIC) per 00 every 4 Medic al capsule (four) Branch hours as needed for Headache. acetaminoph Yes [id number] 1{capsu Take 1 Univers en-caff-but 5-31 le} capsule by it y of albital 00:00: mouth [place] (ESGIC) per 00 every 4 Medic al capsule (four) Branch hours as needed for Headache. acetaminoph Yes [id number] 1{capsu Take 1 Univers en-caff-but 5-31 le} capsule by it y of albital 00:00: mouth [place] (ESGIC) per 00 every 4 Medic al capsule (four) Branch hours as needed for Headache. acetaminoph Yes [id number] 1{capsu Take 1 Univers en-caff-but 5-31 le} capsule by it y of albital 00:00: mouth [place] (ESGIC) per 00 every 4 Medic al capsule (four) Branch hours as needed for Headache. acetaminoph Yes [id number] 1{capsu Take 1 Univers en-caff-but 5-31 le} capsule by it y of albital 00:00: mouth [place] (ESGIC) per 00 every 4 Medic al capsule (four) Branch hours as needed for Headache. acetaminoph 2020- No [id number] 1{capsu Take 1 Univers en-caff-but 5-31 04-27 le} capsule by i ty of albital 00:00: 00:00 mouth [place] (ESGIC) per 00 :00 every 4 Medic al capsule (four) Branch hours as needed for Headache. acetaminoph 2020- No [id number] 1{capsu Take 1 Univers en-caff-but 5-31 04-27 le} capsule by i ty of albital 00:00: 00:00 mouth [place] (ESGIC) per 00 :00 every 4 Medic al capsule (four) Branch hours as needed for Headache. Yes [id number] 1{packe Take 1 Univers vit 1-29 t} Packet by ity of 33-iron-fol 00:00: mouth [place] ic-dha 00 daily. Medical (SELECT-OB Branch + DHA) 29 mg iron-1 mg -250 mg combo pack Yes [id number] 1{packe Take 1 Univers vit 1-29 t} Packet by ity of 33-iron-fol 00:00: mouth [place] ic-dha 00 daily. Medical (SELECT-OB Branch + DHA) 29 mg iron-1 mg -250 mg combo pack Yes [id number] 1{packe Take 1 Univers vit 1-29 t} Packet by ity of 33-iron-fol 00:00: mouth [place] ic-dha 00 daily. Medical (SELECT-[facility] Branch + DHA) 29 mg iron-1 mg -250 mg combo pack Yes [id number] 1{packe Take 1 Univers vit 1-29 t} Packet by ity of 33-iron-fol 00:00: mouth [place] ic-dha 00 daily. Medical (SELECT-OB Branch + DHA) 29 mg iron-1 mg -250 mg combo pack Yes [id number] 1{packe Take 1 Univers vit 1-29 t} Packet by ity of 33-iron-fol 00:00: mouth [place] ic-dha 00 daily. Medical (SELECT[facility] Branch + DHA) 29 mg iron-1 mg -250 mg combo pack Yes [id number] 1{packe Take 1 Univers vit 1-29 t} Packet by ity of 33-iron-fol 00:00: mouth [place] ic-dha 00 daily. Medical ([facility] Branch + DHA) 29 mg iron-1 mg -250 mg combo pack Yes [id number] 1{packe Take 1 Univers vit 1-29 t} Packet by ity of 33-iron-fol 00:00: mouth [place] ic-dha 00 daily. Medical (SELECT-[facility] Branch + DHA) 29 mg iron-1 mg -250 mg combo pack Yes [id number] 1{packe Take 1 Univers vit 1-29 t} Packet by ity of 33-iron-fol 00:00: mouth [place] ic-dha 00 daily. Medical (SELECT-[facility] Branch + DHA) 29 mg iron-1 mg -250 mg combo pack 2020- No [id number] 1{packe Take 1 [facility] vit 1-29 04-27 t} Packet by [facility] 00:[place] daily. [facility] (SELECT-[facility] Branch + DHA) 29 mg iron-1 mg -250 mg combo pack 2020- No [id number] 1{packe Take 1 [facility] vit 1-29 04-27 t} Packet by [facility] [place] daily. Medical ([facility] Branch + DHA) 29 mg iron-1 mg -250 mg combo pack Immunizations Ordered Filled Immunization Date Status Comments [facility] e Immunization Name Name TDAP 2020-02-18 [facility] 00:00:00 [facility] TDAP 2020-02-18 Completed [facility] 00:00:00 [facility] TDAP 2020-02-18 Completed [facility] 00:00:00 [facility] TDAP 2020-02-18 Completed [facility] of 00:00:00 [facility] TDAP 2020-02-18 Completed [facility] 00:00:00 [facility] TDAP 2020-02-18 Completed [facility] 00:00:00 [facility] TDAP 2020-02-18 Completed [facility] 00:00:00 [facility] TDAP 2020-02-18 Completed [facility] 00:00:00 [facility] TDAP 2020-02-18 Completed [facility] 00:00:00 [facility] TDAP 2020-02-18 Completed [facility] 00:00:00 [facility] TDAP 2020-02-18 Completed [facility] 00:00:00 [facility] TDAP 2020-02-18 Completed [facility] 00:00:00 [facility] TDAP 2020-02-18 Completed [facility] 00:00:00 [facility] TDAP 2020-02-18 Completed [facility] 00:00:00 [facility] TDAP 2020-02-18 Completed [facility] 00:00:00 [facility] TDAP 2020-02-18 Completed [facility] 00:00:00 [facility] TDAP 2020-02-18 Completed [facility] 00:00:00 [facility] TDAP 2020-02-18 Completed [facility] 00:00:00 [facility] TDAP 2020-02-18 Completed [facility] 00:00:00 [facility] TDAP 2020-02-18 Completed [facility] 00:00:00 [facility] TDAP 2020-02-18 Completed [facility] 00:00:00 [facility] TDAP 2020-02-18 Completed [facility] 00:00:00 [facility] TDAP 2020-02-18 Completed [facility] of 00:00:00 [facility] TDAP 2020-02-18 Completed [facility] of 00:00:00 [facility] Tdap 2019-01-05 Completed [facility] of 00:00:00 [facility] Tdap 2019-01-05 Completed [facility] of 00:00:00 [facility] Tdap 2019-01-05 Completed [facility] of 00:00:00 [facility] Tdap 2019-01-05 Completed [facility] 00:00:00 [facility] Tdap 2019-01-05 Completed [facility] 00:00:00 [facility] Tdap 2019-01-05 Completed [facility] 00:00:00 [facility] Tdap 2019-01-05 Completed [facility] 00:00:00 [facility] Tdap 2019-01-05 Completed [facility] 00:00:00 [facility] Tdap 2019-01-05 Completed [facility] 00:00:00 [facility] Tdap 2019-01-05 Completed [facility] 00:00:00 [facility] Tdap 2019-01-05 Completed [facility] 00:00:00 [facility] Tdap 2019-01-05 Completed [facility] 00:00:00 [facility] Tdap 2019-01-05 Completed [facility] 00:00:00 [facility] Tdap 2019-01-05 Completed [facility] 00:00:00 [facility] Tdap 2019-01-05 Completed [facility] 00:00:00 [facility] Tdap 2019-01-05 Completed [facility] 00:00:00 [facility] TDAP 2019-01-05 Completed [facility] 00:00:00 [facility] TDAP 2019-01-05 Completed [facility] 00:00:00 [facility] TDAP 2019-01-05 Completed [facility] 00:00:00 [facility] TDAP 2019-01-05 Completed [facility] 00:00:00 [facility] TDAP 2019-01-05 Completed [facility] of 00:00:00 [facility] Tdap 2019-01-05 Completed [facility] 00:00:00 [facility] TDAP 2019-01-05 Completed [facility] 00:00:00 [facility] TDAP 2019-01-05 Completed [facility] 00:00:00 [facility] TDAP 2019-01-05 Completed [facility] 00:00:00 [facility] TDAP 2019-01-05 Completed [facility] 00:00:00 [facility] TDAP 2019-01-05 Completed [facility] 00:00:00 [facility] TDAP 2019-01-05 Completed [facility] of 00:00:00 [facility] TDAP 2019-01-05 Completed [facility] of 00:00:00 [facility] Tdap 2019-01-05 Completed [facility] of 00:00:00 [facility] TDAP 2019-01-05 Completed [facility] 00:00:00 [facility] TDAP 2019-01-05 Completed [facility] 00:00:00 [facility] TDAP 2019-01-05 Completed [facility] 00:00:00 [facility] TDAP 2019-01-05 Completed [facility] 00:00:00 [facility] TDAP 2019-01-05 Completed [facility] 00:00:00 [facility] TDAP 2019-01-05 Completed [facility] 00:00:00 [facility] TDAP 2019-01-05 Completed [facility] 00:00:00 [facility] TDAP 2019-01-05 Completed [facility] 00:00:00 [facility] TDAP 2019-01-05 Completed [facility] 00:00:00 [facility] TDAP 2019-01-05 Completed [facility] 00:00:00 [facility] TDAP 2019-01-05 Completed [facility] of 00:00:00 [facility] TDAP 2019-01-05 Completed [facility] of 00:00:00 [facility] Tdap 2019-01-05 Completed [facility] 00:00:00 [facility] TDAP 2019-01-05 Completed [facility] 00:00:00 [facility] TDAP 2019-01-05 Completed [facility] 00:00:00 [facility] Tdap 2019-01-05 Completed [facility] 00:00:00 [facility] Tdap 2019-01-05 Completed [facility] of 00:00:00 [facility] Tdap 2019-01-05 Completed [facility] 00:00:00 [facility] Tdap 2017-12-14 Completed [facility] 00:00:00 [facility] Tdap 2017-12-14 Completed [facility] 00:00:00 [facility] Tdap 2017-12-14 Completed [facility] 00:00:00 [facility] Tdap 2017-12-14 Completed [facility] 00:00:00 [facility] Tdap 2017-12-14 Completed [facility] 00:00:00 [facility] Tdap 2017-12-14 Completed [facility] 00:00:00 [facility] Tdap 2017-12-14 Completed [facility] 00:00:00 [facility] Tdap 2017-12-14 Completed [facility] 00:00:00 [facility] Tdap 2017-12-14 Completed [facility] 00:00:00 [facility] Tdap 2017-12-14 Completed [facility] 00:00:00 [facility] Tdap 2017-12-14 Completed [facility] of 00:00:00 [facility] Tdap 2017-12-14 Completed [facility] of 00:00:00 [facility] Tdap 2017-12-14 Completed [facility] 00:00:00 [place] [facility] Tdap 2017-12-14 Completed [facility] 00:00:00 [place] [facility] Tdap 2017-12-14 Completed [facility] 00:00:00 [place] [facility] Tdap 2017-12-14 Completed [facility] 00:00:00 [place] [facility] Tdap 2017-12-14 Completed [facility] of 00:00:00 [facility] Tdap 2017-12-14 Completed [facility] 00:00:00 [place] [facility] Tdap 2017-12-14 Completed [facility] 00:00:00 [place] [facility] TDAP 2017-12-14 Completed [facility] 00:00:00 [place] [facility] TDAP 2017-12-14 Completed [facility] 00:00:00 [place] [facility] TDAP 2017-12-14 Completed [facility] 00:00:00 [place] [facility] TDAP 2017-12-14 Completed [facility] of 00:00:00 [facility] Tdap 2017-12-14 Completed [facility] of 00:00:00 [facility] TDAP 2017-12-14 Completed [facility] 00:00:00 [place] [facility] TDAP 2017-12-14 Completed [facility] 00:00:00 [place] [facility] TDAP 2017-12-14 Completed [facility] 00:00:00 [place] [facility] TDAP 2017-12-14 Completed [facility] 00:00:00 [place] [facility] TDAP 2017-12-14 Completed [facility] 00:00:00 [place] [facility] TDAP 2017-12-14 Completed [facility] of 00:00:00 [facility] TDAP 2017-12-14 Completed [facility] of 00:00:00 [facility] Tdap 2017-12-14 Completed [facility] 00:00:00 [place] [facility] TDAP 2017-12-14 Completed [facility] 00:00:00 [place] [facility] TDAP 2017-12-14 Completed [facility] 00:00:00 [place] [facility] TDAP 2017-12-14 Completed [facility] 00:00:00 [place] [facility] TDAP 2017-12-14 Completed [facility] 00:00:00 [place] [facility] TDAP 2017-12-14 Completed [facility] 00:00:00 [place] [facility] TDAP 2017-12-14 Completed [facility] of 00:00:00 [facility] TDAP 2017-12-14 Completed [facility] of 00:00:00 [facility] TDAP 2017-12-14 Completed [facility] 00:00:00 [place] [facility] TDAP 2017-12-14 Completed [facility] of 00:00:00 [facility] TDAP 2017-12-14 Completed [facility] of 00:00:00 [facility] TDAP 2017-12-14 Completed University of 00:00:00 [place] [facility] TDAP 2017-12-14 Completed [facility] of 00:00:00 [facility] TDAP 2017-12-14 Completed University of 00:00:00 [facility] Tdap 2017-12-14 Completed [facility] of 00:00:00 [facility] TDAP 2017-12-14 Completed [facility] of 00:00:00 [facility] TDAP 2017-12-14 Completed [facility] of 00:00:00 [facility] Tdap 2015-08-08 Completed University of 00:00:00 [facility] Tdap 2015-08-08 Completed University of 00:00:00 [facility] Tdap 2015-08-08 Completed [facility] of 00:00:00 [facility] Tdap 2015-08-08 Completed [facility] of 00:00:00 [facility] Tdap 2015-08-08 Completed [facility] of 00:00:00 [facility] Tdap 2015-08-08 Completed [facility] of 00:00:00 [facility] Tdap 2015-08-08 Completed University of 00:00:00 [facility] Tdap 2015-08-08 Completed University of 00:00:00 [facility] Tdap 2015-08-08 Completed [facility] of 00:00:00 [facility] Tdap 2015-08-08 Completed University of 00:00:00 [facility] Tdap 2015-08-08 Completed University of 00:00:00 [facility] Tdap 2015-08-08 Completed University of 00:00:00 [facility] Tdap 2015-08-08 Completed University of 00:00:00 [facility] Tdap 2015-08-08 Completed University of 00:00:00 [facility] Tdap 2015-08-08 Completed University of 00:00:00 [facility] TDAP 2015-08-08 Completed University of 00:00:00 [facility] TDAP 2015-08-08 Completed [facility] of 00:00:00 [facility] TDAP 2015-08-08 Completed University of 00:00:00 [facility] Tdap 2015-08-08 Completed University of 00:00:00 [facility] TDAP 2015-08-08 Completed [facility] of 00:00:00 [facility] TDAP 2015-08-08 Completed University of 00:00:00 [facility] TDAP 2015-08-08 Completed University of 00:00:00 [facility] TDAP 2015-08-08 Completed University of 00:00:00 [facility] TDAP 2015-08-08 Completed University of 00:00:00 [facility] TDAP 2015-08-08 Completed University of 00:00:00 [facility] TDAP 2015-08-08 Completed University of 00:00:00 [facility] Tdap 2015-08-08 Completed University of 00:00:00 [facility] TDAP 2015-08-08 Completed University of 00:00:00 [facility] TDAP 2015-08-08 Completed University of 00:00:00 [facility] TDAP 2015-08-08 Completed University of 00:00:00 [facility] TDAP 2015-08-08 Completed University of 00:00:00 [facility] TDAP 2015-08-08 Completed University of 00:00:00 [facility] TDAP 2015-08-08 Completed University of 00:00:00 [facility] TDAP 2015-08-08 Completed University of 00:00:00 [facility] TDAP 2015-08-08 Completed University of 00:00:00 [facility] TDAP 2015-08-08 Completed University of 00:00:00 [facility] TDAP 2015-08-08 Completed University of 00:00:00 [facility] TDAP 2015-08-08 Completed University of 00:00:00 [facility] TDAP 2015-08-08 Completed University of 00:00:00 [facility] TDAP 2015-08-08 Completed University of 00:00:00 [facility] Tdap 2015-08-08 Completed University of 00:00:00 [facility] TDAP 2015-08-08 Completed University of 00:00:00 [facility] TDAP 2015-08-08 Completed University of 00:00:00 [facility] TDAP 2015-08-08 Completed University of 00:00:00 [facility] Tdap 2015-08-08 Completed University of 00:00:00 [facility] Tdap 2015-08-08 Completed University of 00:00:00 [facility] Tdap 2015-08-08 Completed University of 00:00:00 [facility] Tdap 2015-08-08 Completed University of 00:00:00 [facility] Vital Signs Vital Name Observation Time Observation Value Comments Source Systolic blood 2020-04-24 13:59:00 128 mm[Hg] Univer sity of pressure [facility] Diastolic blood 2020-04-24 13:59:00 72 mm[Hg] Unive rsity of pressure [facility] Heart rate 2020-04-24 13:59:00 95 /min Universi ty of [facility] Body temperature 2020-04-24 13:59:00 36.83 [place] Univ ersity of [facility] Respiratory rate 2020-04-24 13:59:00 18 /min Univ ersity of [facility] Oxygen saturation in 2020-04-24 13:59:00 98 /min [facility] Arterial blood by [facility] Pulse oximetry Branch Body weight 2020-04-24 12:00:00 89.1 kg Universi ty of [facility] Systolic blood 2020-04-16 18:52:00 133 mm[Hg] Univer sity of pressure [facility] Diastolic blood 2020-04-16 18:52:00 77 mm[Hg] Unive rsity of pressure [facility] Heart rate 2020-04-16 18:52:00 90 /min Universi ty of [facility] Body temperature 2020-04-16 18:52:00 37.06 [place] Univ ersity of [facility] Respiratory rate 2020-04-16 18:52:00 16 /min Univ ersity of [facility] Body height 2020-04-16 18:52:00 167.6 cm Universi ty of [facility] Body weight 2020-04-16 18:52:00 89.132 kg Universi ty of [facility] BMI 2020-04-16 18:52:00 31.72 kg/m2 Universi ty of [facility] Systolic blood 2020-04-08 18:07:00 138 mm[Hg] Univer sity of pressure [facility] Diastolic blood 2020-04-08 18:07:00 76 mm[Hg] Unive rsity of pressure [facility] Heart rate 2020-04-08 18:07:00 94 /min Universi ty of [facility] Body temperature 2020-04-08 18:07:00 36.72 [place] Univ ersity of [facility] Respiratory rate 2020-04-08 18:07:00 16 /min Univ ersity of [facility] Body height 2020-04-08 18:07:00 167.6 cm Universi ty of [facility] Body weight 2020-04-08 18:07:00 88.542 kg Universi ty of [facility] BMI 2020-04-08 18:07:00 31.51 kg/m2 Universi ty of [facility] Systolic blood 2020-03-20 19:06:00 138 mm[Hg] Univer sity of pressure [facility] Diastolic blood 2020-03-20 19:06:00 69 mm[Hg] Unive rsity of pressure [facility] Heart rate 2020-03-20 19:06:00 96 /min Universi ty of [facility] Body temperature 2020-03-20 19:06:00 36.44 [place] Univ ersity of [facility] Respiratory rate 2020-03-20 19:06:00 16 /min Univ ersity of [facility] Body height 2020-03-20 19:06:00 167.6 cm Universi ty of [facility] Body weight 2020-03-20 19:06:00 87.227 kg Universi ty of [facility] BMI 2020-03-20 19:06:00 31.04 kg/m2 Universi ty of [facility] Systolic blood 2020-03-06 14:19:00 118 mm[Hg] Univer sity of pressure [facility] Diastolic blood 2020-03-06 14:19:00 69 mm[Hg] Unive rsity of pressure [facility] Heart rate 2020-03-06 14:19:00 90 /min Universi ty of [facility] Body temperature 2020-03-06 14:19:00 36.94 [place] Univ ersity of [facility] Respiratory rate 2020-03-06 14:19:00 16 /min Univ ersity of [facility] Body height 2020-03-06 14:19:00 157.5 cm Universi ty of [facility] Body weight 2020-03-06 14:19:00 84.913 kg Universi ty of [facility] BMI 2020-03-06 14:19:00 34.24 kg/m2 Universi ty of [place] [facility] Systolic blood 2020-02-18 19:36:00 111 mm[Hg] Univer sity of pressure [facility] Diastolic blood 2020-02-18 19:36:00 67 mm[Hg] Unive rsity of pressure [facility] Heart rate 2020-02-18 19:36:00 100 /min Universi ty of [facility] Body temperature 2020-02-18 19:36:00 37.17 [place] Univ ersity of [facility] Respiratory rate 2020-02-18 19:36:00 16 /min Univ ersity of [facility] Body height 2020-02-18 19:36:00 167.6 cm Universi ty of [facility] Body weight 2020-02-18 19:36:00 84.46 kg Universi ty of [facility] BMI 2020-02-18 19:36:00 30.05 kg/m2 Universi ty of [facility] Systolic blood 2020-01-24 17:57:00 125 mm[Hg] Univer sity of pressure [facility] Diastolic blood 2020-01-24 17:57:00 77 mm[Hg] Unive rsity of pressure [facility] Heart rate 2020-01-24 17:57:00 84 /min Universi ty of [facility] Body temperature 2020-01-24 17:57:00 36.89 [place] [facility] ersity of [facility] Respiratory rate 2020-01-24 17:57:00 16 /min Univ ersity of [facility] Body height 2020-01-24 17:57:00 167.6 cm Universi [facility] of [facility] Body weight 2020-01-24 17:57:00 85.078 kg [facility]i ty of [facility] BMI 2020-01-24 17:57:00 30.27 kg/m2 [facility] of [facility] Systolic blood 2019-12-24 15:15:00 131 mm[Hg] Univer sity of pressure [facility] Diastolic blood 2019-12-24 15:15:00 70 mm[Hg] Unive rsity of pressure [facility] Heart rate 2019-12-24 15:15:00 81 /min Universi ty of [facility] Body temperature 2019-12-24 15:15:00 36.78 [place] [facility] ers[facility] of [facility] Respiratory rate 2019-12-24 15:15:00 16 /min Univ ersity of [facility] Body height 2019-12-24 15:15:00 167.6 cm Universi ty of [facility] Body weight 2019-12-24 15:15:00 79.861 kg Universi ty of [facility] BMI 2019-12-24 15:15:00 28.42 kg/m2 Universi ty of [facility] Systolic blood 2019-12-03 18:13:00 134 mm[Hg] Univer sity of pressure [facility] Diastolic blood 2019-12-03 18:13:00 65 mm[Hg] Unive rsity of pressure [facility] Heart rate 2019-12-03 18:13:00 86 /min Universi ty of [facility] Body temperature 2019-12-03 18:13:00 36.56 [place] Univ ersity of [facility] Respiratory rate 2019-12-03 18:13:00 16 /min Univ ersity of [facility] Body height 2019-12-03 18:13:00 165.1 cm Universi ty of [facility] Body weight 2019-12-03 18:13:00 77.367 kg Universi ty of [facility] BMI 2019-12-03 18:13:00 28.38 kg/m2 Universi ty of [facility] Systolic blood 2019-03-12 15:00:00 131 mm[Hg] Univer sity of pressure [facility] Diastolic blood 2019-03-12 15:00:00 76 mm[Hg] Unive rsity of [facility] Heart rate 2019-03-12 15:00:00 99 /min Universi ty of [facility] Body temperature 2019-03-12 15:00:00 36.56 [place] [facility] Respiratory rate 2019-03-12 15:00:00 16 /min Univ ersity of [facility] Body height 2019-03-12 15:00:00 167.6 cm Universi ty of [facility] Body weight 2019-03-12 15:00:00 87.091 kg Universi ty of [facility] BMI 2019-03-12 15:00:00 30.99 kg/m2 Universi ty of [facility] Procedures Procedure Date / Time Performing Clinician Source Performed CBC WITH DIFF 2020-04-24 09:44:00 Bri Norris [facility] VENOUS CORD GAS 2020-04-23 04:55:00 Latha Blakely [facility] HEPATITIS B SURFACE 2020-04-22 21:28:00 [facility] - [place] 2020-04-22 21:28:00 Latha Blakely [facility] IGG/IGM [facility] HB ABO GROUPING 2020-04-22 20:53:00 Latha Blakely [facility] RHO (D) IMMUNE GLOBULIN 2020-04-22 20:53:00 Bri Norris [facility] COVID-19 (ID NOW RAPID 2020-04-22 18:37:00 Douglas Shah [facility] TESTING) [facility] NON-STRESS TEST 2020-04-16 19:49:50 Carmelita Dockery [facility] [place] POCT URINALYSIS 2020-04-16 18:54:00 Shahnaz Franco [facility] POCT URINALYSIS 2020-04-08 00:00:00 Shahnaz Franco [facility] POCT URINALYSIS 2020-03-20 00:00:00 Shahnaz Franco [facility] POCT URINALYSIS 2020-03-06 00:00:00 Shahnaz Franco [facility] TDAP VACCINE, >11 YRS, 2020-02-18 20:02:34 Shahnaz Franco [facility] POCT URINALYSIS 2020-02-18 00:00:00 Shahnaz Franco [facility] POCT URINALYSIS 2020-01-24 18:00:00 Shahnaz Franco [facility] POCT URINALYSIS 2019-12-24 15:16:00 Shahnaz Franco [facility] AUTHORIZATION TO RELEASE 2019-12-12 05:01:00 Doctor Unassigned, No [facility] PHI TO [facility] POCT URINALYSIS 2019-12-03 18:15:00 Shahnaz Franco [facility] POCT TEST 2019-12-03 18:15:00 Shahnaz Franco [facility] AUTHORIZATION FOR 2019-03-15 05:01:00 Doctor Unassigned, No [facility] RELEASE OF PHI Name Medical Branch POCT URINALYSIS W/O 2019-03-12 15:02:00 [facility]IFIC GRAV[facility] Branch Encounters Start End Encounter Admission Attending Care Care Encounter Source Date/Time Date/Time Type Type Clinicians Facility Department ID 2021-06-05 Outpatient [facility] [id number] Univers 17:38:11 ity [facility] 2021-12-24 2021-12-24 [facility] [id number] -20 Univers 10:00:00 10:00:00 CALVIN [id number] ity of [facility] 2021-09-02 2021-09-02 Outpatient [facility] [id number] [facility] 00:00:00 00:00:00 2021-08-26 2021-08-26 Outpatient [facility] [id number] [facility] 00:00:00 00:00:00 2021-08-24 2021-08-24 Outpatient [facility] [id number] [facility] 00:00:00 00:00:00 2020-09-26 2020-09-26 Haley Hassan [facility] 1.2.840.114 [id number] Univers 00:00:00 00:00:00 Y HEALTH 350.1.13.10 i ty of [facility] [place] [id number] [facility] [address] Branch 2020-04-22 2020-04-24 Hospital ALEX Shah 1.2.433.845 [id number] Univers 12:50:00 12:27:00 Encounter Douglas ESPINOZA 350.1.13.10 ity [facility] 4.2.7.2.686 Andrea as [phone] [facility] 038 Branch 2020-04-19 2020-04-19 Nurse ALEX Magana 1.2.840.114 [id number] Univers 00:00:00 00:00:00 Triage Lilaailyn ESPINOZA 350.1.13.10 it y of [facility] 4.2.7.2.686 Andrea as [id number] [facility] 019 Branch 2020-04-16 2020-04-16 [facility] 1.2.884.260 [id number] Univers 13:27:07 13:42:07 Carmelita C [employer] 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 350.1.13.10 ity of Visit REGIONAL 4.2.7.2.686 Andrea as MATERNAL [id number] [facility] & [address] 2020-04-16 2020-04-16 Outpatient R JORDENLUIS FERNANDO, [facility] [id number] Univers 11:00:00 11:00:00 CARMELITA ity o [facility] 2020-04-16 2020-04-16 Outpatient R KELLIE, [facility] [id number] Univers 11:00:00 11:00:00 CARMELITA ity o [facility] 2020-04-15 2020-04-15 Outpatient [facility] [id number] -20 Univers 15:15:00 15:15:00 ROSMADDYNDA [id number] ity o [facility] 2020-04-15 2020-04-15 Outpatient [facility] [id number] Univers 15:15:00 15:15:00 ROSHUNDA ity o [facility] 2020-04-09 2020-04-09 [facility]phone [facility] 1.2.377.502 [id number] Univers 00:00:00 00:00:00 Roshunda R [employer] 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 350.1.13.10 ity of REGIONAL 4.2.7.2.686 Andrea as MATERNAL [id number] [address] 2020-04-08 2020-04-08 [facility]ine [facility] 1.2.840.114 [id number] Univers 12:56:19 13:25:59 Roshunda R [employer] 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 350.1.13.10 ity of Visit REGIONAL 4.2.7.2.686 Andrea as MATERNAL [id number] [address] 2020-04-08 2020-04-08 [facility]patient [facility] [id number] -20 Univers 13:00:00 13:00:00 ADAMNDJoel ity o [facility] 2020-04-08 2020-04-08 Outpatient [facility] [id number] Univers 13:00:00 13:00:00 ROSHUNDA ity o f [facility] 2020-04-02 2020-04-02 Outpatient R SALVADOR [facility] [id number] -20 Univers 12:45:00 12:45:00 ROSMADDYNDA [id number] ity o f [facility] 2020-04-02 2020-04-02 Outpatient R SALVADOR [facility] [id number] Univers 12:45:00 12:45:00 ROSHUNDA ity o f [facility] 2020-04-01 2020-04-01 [facility] [id number] [id number] Univers 00:00:00 00:00:00 Roshunda R [employer] 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 350.1.13.10 ity of REGIONAL 4.2.7.2.686 Andrea as MATERNAL [id number] Med ical & CHILD [address] [place] [address] 2020-03-20 2020-03-20 [facility] 1.2.840.114 [id number] Univers 13:46:03 14:46:22 Roshunda R [employer] 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 350.1.13.10 ity of Visit REGIONAL 4.2.7.2.686 Andrea as MATERNAL [id number] Med ical & CHILD [address] [place] [address] 2020-03-20 2020-03-20 Outpatient Corinne FRANCO [facility] [id number] -20 Univers 14:00:00 14:00:00 ADAMNDA [id number] ity o f [facility] 2020-03-20 2020-03-20 Outpatient Corinne FRANCO [facility] [id number] Univers 14:00:00 14:00:00 ROSHUNDA ity o f [facility] 2020-03-06 2020-03-06 [facility] 1.2.840.114 [id number] Univers 09:06:15 09:39:44 Roshunda R 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 350.1.13.10 ity of Visit REGIONAL 4.2.7.2.686 Andrea as MATERNAL [id number] [facility] ical & CHILD [address] [place] [address] 2020-03-06 2020-03-06 Outpatient Corinne FRANCO [facility] [id number] -[id number] Univers 09:15:00 09:15:00 SHAHNAZ ity o [facility] 2020-03-06 2020-03-06 Outpatient Corinne FRANCO [facility] [id number] Univers 09:15:00 09:15:00 SHAHNAZ ityesi o [facility] 2020-03-03 2020-03-03 Outpatient Corinne FRANCO [facility] [id number] -20 Univers 11:00:00 11:00:00 SHAHNAZ [id number] ityesi o [facility] 2020-03-03 2020-03-03 Outpatient Corinne FRANCO [facility] [id number] Univers 11:00:00 11:00:00 SHAHNAZ [facility] o [facility] 2020-02-18 2020-02-18 [facility] 1.2.840.114 [id number] Univers 14:17:11 15:11:36 Shahnaz R 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 350.1.13.10 ity of Visit REGIONAL 4.2.7.2.686 Andrea as MATERNAL [id number] Med ical & CHILD [address] [place] [address] 2020-02-18 2020-02-18 Outpatient oCrinne FRANCO [facility] [id number] -20 Univers 14:15:00 14:15:00 SHAHNAZ [id number] ityesi o [facility] 2020-02-18 2020-02-18 Outpatient Corinne FRANCO [facility] [id number] Univers 14:15:00 14:15:00 ADAMNDA ityesi o [facility] 2020-02-14 2020-02-14 Outpatient Corinne FRANCO [facility] [id number] -[id number] Univers 15:45:00 15:45:00 SHAHNAZ ity o [facility] 2020-02-14 2020-02-14 Outpatient Corinne FRANCO [facility] [id number] Univers 15:45:00 15:45:00 BRENNENA ityesi o [facility] 2020-02-07 2020-02-07 Outpatient Corinne FRANCO [facility] [id number] -20 Univers 13:30:00 13:30:00 SHAHNAZ ityesi o [facility] 2020-02-07 2020-02-07 Outpatient R SALVADOR [facility] [id number] Univers 13:30:00 13:30:00 ROSHUNDA ity o f [facility] 2020-01-28 2020-01-28 Outpatient R [facility] [id number] -20 Univers 13:15:00 13:15:00 [id number] ity of [facility] 2020-01-28 2020-01-28 Outpatient R SALVADOR [facility] [id number] Univers 13:15:00 13:15:00 ROSHUNDA ityesi o f [facility] 2020-01-24 2020-01-24 [facility]ine [facility] 1.2.840.114 [id number] Univers 12:45:18 13:15:26 Roshunda R [employer] 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 350.1.13.10 ity of Visit REGIONAL 4.2.7.2.686 Andrea as MATERNAL [id number] Med ical & CHILD [address] [place] [address] 2020-01-24 2020-01-24 Outpatient R SALVADOR [facility] [id number] -20 Univers 13:00:00 13:00:00 ADAMNDA [id number] ity o f [facility] 2020-01-24 2020-01-24 Outpatient R SALVADOR [facility] [id number] Univers 13:00:00 13:00:00 ROSMADDYNDA ityesi o f [facility] 2020-01-21 2020-01-21 Outpatient R SALVADOR [facility] [id number] -20 Univers 09:30:00 09:30:00 ROSHUNDA [id number] ity o [facility] 2020-01-21 2020-01-21 Outpatient R SALVADOR [facility] [id number] Univers 09:30:00 09:30:00 ROSHUNDA ityesi o [facility] 2020-01-21 2020-01-21 Telephone Salvador [facility] [id number] Univers 00:00:00 00:00:00 Roshunda R [employer] 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 350.1.13.10 ity of REGIONAL 4.2.7.2.686 Andrea as MATERNAL [id number] [facility] ical & CHILD [address] [place] [address] 2020-01-01 2020-01-01 Outpatient R SALVADOR [facility] [id number] -20 Univers 12:45:00 12:45:00 ADAMNDA [id number] ity o sammie [facility] 2020-01-01 2020-01-01 Outpatient R SALVADOR [facility] [id number] Univers 12:45:00 12:45:00 ADAMNDA ity o sammie [facility] 2019-12-24 2019-12-24 Routine [facility] 1.2.840.114 [id number] Univers 10:07:46 10:43:21 Roshunda R V[employer] 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 350.1.13.10 ity of Visit [facility] 4.2.7.2.686 Andrea as MATERNAL [id number] [facility] ical & CHILD [address] [place] [address] 2019-12-24 2019-12-24 Outpatient R SALVADOR [facility] [id number] -20 Univers 10:15:00 10:15:00 SHAHNAZ [id number] ity o sammie [facility] 2019-12-24 2019-12-24 [facility] [id number] Univers 10:15:00 10:15:00 ADAMNDA luchoy o [facility] 2019-12-20 2019-12-20 Telephone [facility] 1.2.317.125 [id number] Univers 00:00:00 00:00:00 Rosmaddynda R [employer] 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 350.1.13.10 ity of REGIONAL 4.2.7.2.686 Andrea as MATERNAL [id number] [facility] [address] [place] [address] 2019-12-12 2019-12-12 Abstract [facility] 1.2.840.114 [id number] Univers 00:00:00 00:00:00 Rosmaddynda R [employer] 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 350.1.13.10 ity of REGIONAL 4.2.7.2.686 Andrea as MATERNAL [id number] [facility] ical & CHILD [address] [place] [address] 2019-12-12 2019-12-12 Orders Doctor JOHNSON 1.2.840.114 [id number] Univers 00:00:00 00:00:00 Only Unassigned, ALEXIS 350.1.13.10 ity of [place] [facility] 4.2.7.2.686 Andrea as [id number] [facility] [address] 2019-12-12 2019-12-12 Abstract Salvador [facility] 1.2.840.114 [id number] Univers 00:00:00 00:00:00 Roshunda R [employer] 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 350.1.13.10 ity of REGIONAL 4.2.7.2.686 Andrea as MATERNAL [id number] [facility] ical & CHILD [address] [place] [address] 2019-12-11 2019-12-11 Credit Operations Specialist 3, [facility] Room [facility] 1 .2.840.114 [id number] Univers 12:52:18 14:25:09 Visit Douglas Shah [facility] 350.1.13. 10 ity of CL[place] [id number] [facility] [address] 2019-12-11 2019-12-11 Outpatient R [facility] [id number] -20 Univers 13:00:00 13:00:00 [id number] ity of [facility] 2019-12-11 2019-12-11 Outpatient P [facility] [id number] Univers 13:00:00 13:00:00 ity of [facility] 2019-12-05 2019-12-05 Telephone Salvador [facility] 1.2.122.520 [id number] Univers 00:00:00 00:00:00 Rosmaddynda R [employer] 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 350.1.13.10 ity of REGIONAL 4.2.7.2.686 Andrea as MATERNAL [id number] [address] 2019-12-03 2019-12-03 Initial Franco [facility] 1.2.840.114 [id number] Univers 13:07:51 14:25:47 Roshunda R [employer] 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 350.1.13.10 ity of Visit REGIONAL 4.2.7.2.686 Andrea as MATERNAL [id number] [address] 2019-12-03 2019-12-03 Outpatient R SALVADOR [facility] [id number] -20 Univers 12:45:00 12:45:00 ROSMADDYNDA [id number] ity o f [facility] 2019-12-03 2019-12-03 Outpatient R SALVADOR [facility] [id number] Univers 12:45:00 12:45:00 ADAMNDA ity o sammie [facility] 2019-11-05 2019-11-05 Outpatient R SALVADOR [facility] [id number] -20 Univers 13:00:00 13:00:00 SHAHNAZ [id number] ity o f [facility] 2019-11-05 2019-11-05 Outpatient R SALVADOR [facility] [id number] Univers 13:00:00 13:00:00 ADAMNDA ity o f [facility] 2019-10-31 2019-10-31 [facility]phone [facility] 1.2.093.519 [id number] Univers 00:00:00 00:00:00 Brennena R [employer] 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 350.1.13.10 ity of [facility] 4.2.7.2.686 Andrea as MATERNAL [id number] [facility] [address] [place] [address] 2019-08-23 2019-08-23 Wes [facility] 1.2.865.702 [id number] Univers 00:00:00 00:00:00 Adamnda R [employer] 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 350.1.13.10 ity of [facility] 4.2.7.2.686 Andrea as MATERNAL [id number] [address] 2019-04-13 2019-04-13 Wes [facility] 1.2.738.122 [id number] Univers 00:00:00 00:00:00 Korinanda R [employer] 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 350.1.13.10 ity of [facility] 4.2.7.2.686 Andrea as MATERNAL [id number] [facility] & CHILD [address] [place] [address] 2019-03-15 2019-03-15 Orders Doctor JOHNOSN 1.2.840.114 [id number] Univers 00:00:00 00:00:00 Only Unassigned, ALEXIS 350.1.13.10 ity of [place] [facility] 4.2.7.2.686 Andrea as [id number] [address] 2019-03-12 2019-03-12 Routine [facility] 1.2.840.114 [id number] Univers 09:44:19 10:32:14 Roshunda R [employer] 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 350.1.13.10 ity of Visit REGIONAL 4.2.7.2.686 Andrea as MATERNAL [id number] [facility] & CHILD [address] [place] [address] 2019-03-10 2019-03-10 Nurse ALEX Raya 1.2.840.114 [id number] Univers 00:00:00 00:00:00 Triage Ladonna Lyon ALEXIS 350.1.13.10 i ty of [facility] 4.2.7.2.686 Andrea as [id number] [address] 2019-03-01 2019-03-01 Telephone [facility] 1.2.590.298 [id number] Univers 00:00:00 00:00:00 Rosmaddynda R V[employer] 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 350.1.13.10 ity of [facility] 4.2.7.2.686 Andrae as MATERNAL [id number] [facility] & [address] 2019-03-01 2019-03-01 Telephone [facility] 1.2.402.766 [id number] Univers 00:00:00 00:00:00 Roshunda R [employer] 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 350.1.13.10 ity of [facility] 4.2.7.2.686 Andrea as MATERNAL [id number] [address] Results Test Description Test Time Test [...] g/dL 31.6-35.1 L RDW-SD (test code = 90018-9) 41.1 fL 39-49.9 RDW-CV (test code = 788-0) 15.6 % 12-15.5 H PLT (test code = 777-3) See_Comment [Au tomated message] The system which ge nerated this result transmit steve reference range: 166 - 35 8 10*3/?L. The reference range was not used to interpret th is result as normal/abnormal . MPV (test code = 44848-1) 10.2 fL 9.5-12.9 NRBC/100 WBC (test code = See_Comment [ Automated message] The 3841522036) system which Protonet nerated this result transmit steve reference range: 0.0 - 10 .0 /100 WBCs. The reference r zahra was not used to interpr et this result as normal/abnor mal. NRBC x10^3 (test code = <0.01 See_Comment [Au tomated message] The 1362402179) system which Protonet nerated this result transmit steve reference range: 10*3/?L. The reference range was not u sed to interpret this result as normal/abnormal . GRAN MAT (NEUT) % (test code 62.9 % = 770-8) IMM GRAN % (test code = 2.60 % 9711036954) LYMPH % (test code = 736-9) 24.4 % MONO % (test code = 5905-5) 7.4 % EOS % (test code = 713-8) 1.8 % BASO % (test code = 706-2) 0.9 % GRAN MAT x10^3(ANC) (test 7.76 10*3/uL 1.88-7.09 H code = 4561977550) IMM GRAN x10^3 (test code = 0.32 10*3/uL 0-0.06 H 1067975793) LYMPH x10^3 (test code = 3.00 10*3/uL 1.32-3.29 731-0) MONO x10^3 (test code = 0.91 10*3/uL 0.33-0.92 742-7) EOS x10^3 (test code = 0.22 10*3/uL 0.03-0.39 711-2) BASO x10^3 (test code = 0.11 10*3/uL 0.01-0.07 H 704-7) Lab Interpretation (test Abnormal code = 31722-6) [facility] SYPHILIS [id number] 13:17:00 Test Item Value Reference Range Interpretation Comments Syphilis IgG/IgM (test Non-reactive Non-reactive code = 93480-0) ADAL (test code = ADAL) Non-reactive - No serologic evidence of T. pallidum infection. Cannot exclude incubating or early syphilis. Submit a second specimen in 2-4 weeks if syphilis is clinically suspected. Equivocal - Further testing to follow. Reactive - Further testing to follow. Lab Interpretation (test Normal code = 63038-1) [facility] IMMUNE [id number] 06:50:01 Test Item Value Reference Range Interpretation Comments RHIG CANDIDATE? No- see comment Patient i s not a (test code = candidate for R hIg- 5055) Patient is Rh Positive.Perfor med at [facility] Laboratory Services - [facility] Blood [address] [address]Breh Free: [phone] A No. [id number] [facility] WorthVEN[facility] CORD [id number] 05:16:00 Test Item Value Reference Range Interpretation Comments VENOUS BASE EXCESS, mEq/L CORD (test code = 7238243120) VENOUS PH, CORD (test 7.25-7.45 code = 2741785503) VENOUS PC02, CORD See_Comment [Automate d message] The (test code = system which ge nerated 7247894008) this result tra nsmitted reference range : 27 - 49 mmHg. The refer ence range was not used to interpret this result as normal/abnormal . VENOUS PO2, CORD (test See_Comment [Aut omated message] The code = 4601383054) system wh ich generated this result tra nsmitted reference range : 17 - 41 mmHg. The refer ence range was not used to interpret this result as normal/abnormal . VENOUS BICARBONATE, See_Comment QUES [Au tomated message] CORD (test code = The system which generated 3339004886) this result tra nsmitted reference range : 12 - 29 mEq/L. The refe rence range was not used to interpret this result as normal/abnormal . [facility] CORD [id number] 05:14:00 Test Item Value Reference Range Interpretation Comments BASE EXCESS, CORD mEq/L (test code = 2647426218) AC PH, CORD (BEAKER) 7.18-7.38 (test code = 9084290236) PC02, CORD (test code See_Comment [Auto mated message] The = 7959530070) system which g enerated this result transmit steve reference range : 32 - 66 mmHg. The refer ence range was not used to interpret this result as normal/abnormal . PO2, CORD (test code See_Comment [Autom ated message] The = 7937690331) system which g enerated this result transmit tseve reference range : 10 - 30 mmHg. The refer ence range was not used to interpret this result as normal/abnormal . BICARBONATE, CORD See_Comment [Automate d message] The (test code = system which ge nerated this 6491903842) result transmit steve reference range : 17 - 27 mEq/L. The refe rence range was not used to interpret this result as normal/abnormal . [facility] WorthHepatitis B Surface [id number] 22:43:00 Test Item Value Reference Range Interpretation Comments HBsAg Semi-Quantitative (test code = Negative Negative 5195-3) [facility] WorthType and Screen - ONCE [id number] 22:39:56 Test Item Value Reference Range Interpretation Comments ABO & RH (test code O POSITIVE Performe d at [facility] = 20) Laboratory [facility] Blood [facility] [place] [address]Ofjl Free: [phone] A No. [id number] IAT (test code = Negative Performed a t [facility] 1185) Laboratory Serv [facility] Blood Bank3 [address] [facility] [address]Owwu Free: [phone] A No. [id number] [facility] WorthCOVID-19 (ID NOW RAPID TESTING)2020-04-22 19:02:00 Test Item Value Reference Range Interpretation Comments SARS-CoV-2 Rapid ID NOW Not Detected Not Detected (test code = 10934-5) ADAL (test code = ADAL) ID NOW COVID-19 Assay is an isothermal nucleic acid amplification test intended for the qualitative detection of nucleic acid from SARS-CoV-2 viral RNA in nasopharyngeal (SEAT BUILDER) specimens. It is used under Emergency Use [...] indicated. Lab Interpretation Normal (test code = 36765-8) [facility] WorthFETAL NON-STRESS [id number] 19:50:42NST: cat 1, reactive/reassuring, no ctx, +accels, neg decls, moderate variability [facility] WorthPO[facility] URINALYSIS W SPECIFIC [id number] 18:54:00 Test Item Value Reference Range Interpretation [...] POCT U APPEAR (test code = 3267) [facility] URINALYSIS W SPECIFIC [id number] 18:07:00 Test Item Value Reference Range Interpretation [...] POCT U APPEAR (test code = 3267) [facility] URINALYSIS W SPECIFIC [id number] 18:07:00 Test Item Value Reference Range Interpretation [...] POCT U APPEAR (test code = 3267) [facility] URINALYSIS W SPECIFIC [id number] 18:07:00 Test Item Value Reference Range Interpretation [...] POCT U APPEAR (test code = 3267) [facility] URINALYSIS W SPECIFIC [id number] 18:07:00 Test Item Value Reference Range Interpretation [...] POCT U APPEAR (test code = 3267) [facility] URINALYSIS W SPECIFIC [id number] 19:07:00 Test Item Value Reference Range Interpretation [...] POCT U APPEAR (test code = 3267) [facility] URINALYSIS W SPECIFIC [id number] 19:07:00 Test Item Value Reference Range Interpretation [...] POCT U APPEAR (test code = 3267) [facility] URINALYSIS W SPECIFIC [id number] 19:07:00 Test Item Value Reference Range Interpretation [...] POCT U APPEAR (test code = 3267) [facility] URINALYSIS W SPECIFIC [id number] 19:07:00 Test Item Value Reference Range Interpretation [...] POCT U APPEAR (test code = 3267) [facility] URINALYSIS W SPECIFIC [id number] 19:07:00 Test Item Value Reference Range Interpretation [...] POCT U APPEAR (test code = 3267) [facility] URINALYSIS W SPECIFIC [id number] 14:21:00 Test Item Value Reference Range Interpretation [...] POCT U APPEAR (test code = 3267) [facility] URINALYSIS W SPECIFIC [id number] 19:42:00 Test Item Value Reference Range Interpretation [...] POCT U APPEAR (test code = 3267) [facility] URINALYSIS W SPECIFIC [id number] 19:42:00 Test Item Value Reference Range Interpretation [...] POCT U APPEAR (test code = 3267) [facility] URINALYSIS W SPECIFIC [id number] 18:00:00 Test Item Value Reference Range Interpretation [...] POCT U APPEAR (test code = 3267) [facility] URINALYSIS W SPECIFIC [id number] 18:00:00 Test Item Value Reference Range Interpretation [...] POCT U APPEAR (test code = 3267) [facility] URINALYSIS W SPECIFIC [id number] 15:16:00 Test Item Value Reference Range Interpretation [...] POCT U APPEAR (test code = 3267) [facility] URINALYSIS W SPECIFIC [id number] 15:16:00 Test Item Value Reference Range Interpretation [...] POCT U APPEAR (test code = 3267) [facility] URINALYSIS W SPECIFIC [id number] 15:16:00 Test Item Value Reference Range Interpretation [...] POCT U APPEAR (test code = 3267) [facility] URINALYSIS W SPECIFIC [id number] 15:16:00 Test Item Value Reference Range Interpretation [...] POCT U APPEAR (test code = 3267) [facility] URINALYSIS W SPECIFIC [id number] 18:15:00 Test Item Value Reference Range Interpretation [...] POCT U APPEAR (test code = 3267) [facility] [id number] 18:15:00 Test Item Value Reference Range Interpretation Comments POCT PREG (test code = 1605) Positive On board controls acceptable with C Yes Line (test code = 3574) POCT PREG LOT # (test code = 3575) POCT PREG TEST DATE (test code = 357) [facility] URINALYSIS W SPECIFIC [id number] 18:15:00 Test Item Value Reference Range Interpretation [...] POCT U APPEAR (test code = 3267) [facility] [id number] 18:15:00 Test Item Value Reference Range Interpretation Comments POCT PREG (test code = 1605) Positive On board controls acceptable with C Yes Line (test code = 3574) POCT PREG LOT # (test code = 3575) POCT PREG TEST DATE (test code = 3576) [facility] [id number] 15:02:00 Test Item Value Reference Range Interpretation [...] code = 3257) . Negative - Negative [facility]
[2021-12-19 20:34] LABS: Urine Blood Negative (Negative); Urine Glucose Negative (Negative); Urine Protein 1+ (Negative); Urine Specific Gravity 1.025 (1.005-1.030)
[2021-12-19 22:10] LABS: Urine Specific Gravity/Preg 1.025 (1.005-1.030)
[2021-12-19] MEDS ORDERED: Ringers Lactate 1,000 ML IV ONE (22:22)
[2021-12-19] MEDS ORDERED: ACETAMINOPHEN 500 MG TAB ONE (22:22)
[2021-12-19 22:37] LABS: Absolute Lymphocytes (CBC) 2.7 K/uL (0.7-4.9); Hematocrit 42.4 % (36.0-45.0); Lymphocytes % 35.8 % (15.3-44.8); MPV 8.8 fL (7.6-11.3); RBC Red Blood Cell Count 5.28 M/uL (3.86-4.86)
[2021-12-19 22:45] LABS: Potassium 3.9 mmol/L (3.5-5.1)
[2021-12-19 23:15] LABS: Urine Appearance CLEAR (Clear); Urine Bilirubin NEGATIVE (Negative); Urine Blood NEGATIVE (Negative); Urine Color YELLOW (Yellow); Urine Glucose NEGATIVE (Negative); Urine Microscopic Reflex ORDER UMIC; Urine Protein 1+ (Negative); Urine Specific Gravity 1.025 (1.005-1.030); Urine Urobilinogen 0.2 mg/dL (0.2-1.0)
[2021-12-19 23:22] LABS: Urine Bacteria LOADED /HPF (<20); Urine Mucus 2+ /HPF (NONE SEEN); Urine RBC <5 /HPF (NONE SEEN)
[2021-12-19 23:23] LABS: Calcium Oxalate Crystals- Ur MANY (NONE SEEN)
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
--- NOTE | 2021-12-19 23:33 | EDPHYS ---
Physician Documentation [facility] Name: Richar Tariq Age: 21 yrs Sex: Female : 2000 Arrival Date: 12/19/2021 Time: 19:45 Bed 14 Private MD: ED Physician Adria Rehman HPI: 12/19 20:34 This 21 yrs old Female presents to ER via Ambulatory with complaints of Headache, ms3 Dizziness. 20:34 The patient complains of pain to the top of head. The patient describes the headache as ms3 aching. 20:34 Onset: The symptoms/episode began/occurred 3 week(s) ago. Associated signs and ms3 symptoms: Pertinent positives: dizziness. Severity of symptoms: At its worst the pain was a " 8" out of "10", in the emergency department the pain is unchanged. Headache History:. The symptoms are alleviated by nothing. the symptoms are aggravated by nothing. 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 - Social history:: Smoking status: Patient denies any tobacco usage or history of. ROS: 20:34 Constitutional: Negative for fever, and chills. ENT: Negative for injury, pain, and ms3 discharge, Neck: Negative for injury, pain, and swelling, Cardiovascular: Negative for chest pain, and palpitations. Respiratory: Negative for shortness of breath, cough, wheezing, and pleuritic chest pain, Abdomen/GI: Negative for abdominal pain, nausea, vomiting, diarrhea, and constipation, MS/Extremity: Negative for injury and deformity. 20:34 All other systems are negative. Exam: 20:34 Constitutional: This is a well developed, well nourished patient who is awake, alert, ms3 and in no acute distress. Head/Face: Normocephalic, atraumatic. Neck: Trachea midline, no cervical lymphadenopathy. Supple, full range of motion without nuchal rigidity, or vertebral point tenderness. No Meningismus. Chest/axilla: Normal chest wall appearance and motion. Nontender with no deformity. Cardiovascular: Regular rate and rhythm with a normal S1 and S2. No gallops, murmurs, or rubs. Normal PMI, no JVD. No pulse deficits. Respiratory: Lungs have equal breath sounds bilaterally, clear to auscultation and percussion. No rales, rhonchi or wheezes noted. No increased work of breathing, no retractions or nasal flaring. Abdomen/GI: Soft, non-tender, with normal bowel sounds. No distension or tympany. No guarding or rebound. No evidence of tenderness throughout. Psych: Awake, alert, with orientation to person, place and time. Behavior, mood, and affect are within normal limits. Vital Signs: 20:07 BP 149 / 88; Pulse 96; Resp 18; Temp 97.6; Pulse Ox 100% ; Weight 90.72 kg; Height 5 vc1 ft. 6 in. (167.64 cm); Pain 7/10; 20:09 BP 149 / 88; Pulse 96; Resp 18; Temp 97.6; Pulse Ox 100% ; Pain 7/10; vc1 20:07 Body Mass Index 32.28 (90.72 kg, 167.64 cm) vc1 MDM: 20:34 Differential diagnosis: hypertensive headache, Hyperglycemia vs Orthostatic hypotension.ms3 21:14 Patient medically screened. ms3 23:32 Data reviewed: vital signs, nurses notes, lab test result(s). Counseling: I had a ms3 detailed discussion with the patient and/or guardian regarding: the historical points, exam findings, and any diagnostic results supporting the discharge/admit diagnosis, lab results, the need for outpatient follow up, to return to the emergency department if symptoms worsen or persist or if there are any questions or concerns that arise at home. 12/19 20:19 Order name: CBC with Diff; Complete Time: 22:54 ms3 12/19 20:19 Order name: BMP; Complete Time: 22:54 ms3 12/19 20:34 Order name: Urinalysis vc1 12/19 20:35 Order name: Urine Dipstick-Ancillary; Complete Time: 22:54 EDMS 12/19 20:43 Order name: Urine --Ancillary (enter results); Complete Time: 22:54 ds4 12/19 23:18 Order name: Urine Microscopic Only EDMS 12/19 20:19 Order name: Urine Test (obtain specimen); Complete Time: 20:34 ms3 12/19 20:19 Order name: Urine Dipstick-Ancillary (obtain specimen); Complete Time: 20:34 ms3 12/19 23:25 Order name: Urine Culture EDMS Administered Medications: 22:20 Drug: Lactated Ringers Solution 1000 ml Route: IV; Rate: 4000 ml/hr; Site: right tw5 antecubital; 22:20 Drug: Tylenol 1000 mg Route: PO; tw5 Disposition Summary: 12/19/21 23:32 Discharge Ordered Location: Home ms3 Condition: Stable ms3 Diagnosis - Headache ms3 - Dizziness ms3 Followup: ms3 - With: Oliverio Luque MD - When: 2 - 3 days - Reason: Recheck today's complaints Discharge Instructions: - Discharge Summary Sheet ms3 - General Headache Without Cause ms3 Forms: - Medication Reconciliation Form ms3 - Thank You Letter ms3 - Antibiotic Education ms3 - Prescription Opioid Use ms3 Signatures: Dispatcher [employer] EDMS Adria Rehman DO DO ms3 Sayda Mathew tw5 Kirsten Diaz RN RN vc1 Corrections: (The following items were deleted from the chart) 20:03 20:00 Home Meds: None; vc1 vc1
[2021-12-20 00:46] VITALS: BP 149/88; TEMP 97.6; O2SAT 100
== END 2021-12-20 00:16 | disposition home or self-care (01) ==
LOC: ER 19:42
DX: R51.9 Headache, unspecified (principal); R42 Dizziness and giddiness
CPT/HCPCS: 87088; 85025; 87086; 80048; 36415; 81025; 99283; J7120; 81003; 81015